=== PATIENT | male | born 1945 | race Caucasian/White ===

== ENCOUNTER 2016-10-18 03:18 | Emergency (ER) | payer MEDICARE ==
[~2016-10-18] VITALS: Ht 167.6 cm; Wt 59.9 kg
[~2016-10-18 03:18] MED LIST: ASP81EC PO; ASPI81CH43; CLON0.2T PO; DOXY-216 PO; FLUT110A INH; LISI10TA6 PO; MET50T PO; SPIR25TA88 PO; TRAZ100T2; TRAZ50TA2 PO
[2016-10-18] MEDS ORDERED: methylPREDNISolone SOD SUCC 125 MG/2 ML VL IV ONE (05:00)
[2016-10-18] MEDS ORDERED: ALBUTEROL SULF 2.5 MG/0.5ML(0.5%) NEB SOLN NEB ONE (05:00)
[2016-10-18] MEDS ORDERED: IPRATROPIUM BROM 0.5 MG/2.5ML INH SOL NEB ONE (05:00)
[2016-10-18 05:43] LABS: Basophils # (auto) 0 uL; Basophils % (auto) 0.2 % (0.0-2.0); Eosinophils # (auto) 0.1 uL; Eosinophils % (auto) 1.3 % (0.0-7.0); Hematocrit 50.2 % (41.0-53.0); Hemoglobin 17.1 g/dL (13.5-17.5); Lymphocytes # (auto) 1.8 uL; Lymphocytes % (auto) 17.7 % (10.0-50.0); Mean Corpuscular Hemoglobin 30.7 pg (28.0-32.0); Mean Corpuscular Volume 90.3 fL (80.0-100.0); Mean Platelet Volume 10.8 fL (7.4-10.4); Monocytes # (auto) 0.8 uL; Monocytes % (auto) 7.9 % (0.0-12.0); Neutrophils # (auto) 7.4 uL; Neutrophils % (auto) 72.9 % (37.0-80.0); Platelet Count (auto) 164 10^3/uL (140-450); Red Cell Distribution Width 14.2 % (11.6-16.0); White Blood Cell 10.1 10^3/uL (4.4-10.8)
[2016-10-18] MEDS ORDERED: NIFEdipine 10 MG CAP PO ONE (06:00)
[2016-10-18] MEDS ORDERED: ENALAPRILAT 1.25 MG/ML-1ML VIAL IV ONE (06:00)
[2016-10-18 06:02] LABS: Albumin 3.7 g/dL (3.4-5.0); BUN/Creatinine Ratio 19.6; Calcium 8.5 mg/dL (8.5-10.1); Magnesium 2.2 mg/dL (1.6-2.6); Potassium 3.4 mmol/L (3.5-5.1)
[2016-10-18 06:08] LABS: Bilirubin, Total 1.4 mg/dL (0.2-1.0)
[2016-10-18 06:15] LABS: B-Type Natriuretic Peptide 1737.13 pg/mL (0-100); Temperature: 22.7 C (20.0-25.0)
[2016-10-18 08:35] VITALS: BP 134/69
== END 2016-10-18 08:44 | disposition left against medical advice (07) ==
LOC: EDBD 03:18 → ER 03:22
DX: J44.1 Chronic obstructive pulmonary disease with (acute) exacerbation (principal); I11.0 Hypertensive heart disease with heart failure; I50.9 Heart failure, unspecified; R06.00 Dyspnea, unspecified; F17.210 Nicotine dependence, cigarettes, uncomplicated; F12.10 Cannabis abuse, uncomplicated; F15.10 Other stimulant abuse, uncomplicated; F11.10 Opioid abuse, uncomplicated; Z86.73 Personal history of transient ischemic attack (TIA), and cerebral infarction without residual deficits; I25.10 Atherosclerotic heart disease of native coronary artery without angina pectoris; I25.2 Old myocardial infarction
CPT/HCPCS: 36415; 36600; 71010; 80053; 82805; 83605; 83735; 83880; 84484; 85025; 87040; 93005; 94640; 94761; 96374; 96375

== ENCOUNTER 2016-10-24 23:49 | Emergency (ER) | payer MEDICARE | END 2016-10-25 00:05 | disposition left against medical advice (07) | LOC: EDBD 23:49 → EDUNIT# 23:49 → ER 23:54 | DX: T65.91XA Toxic effect of unspecified substance, accidental (unintentional), initial encounter (principal); Y92.89 Other specified places as the place of occurrence of the external cause; Z53.21 Procedure and treatment not carried out due to patient leaving prior to being seen by health care provider ==

== ENCOUNTER 2017-01-06 00:37 | Inpatient (IN) | payer MEDICARE, OTHER ==
[~2017-01-06] VITALS: Ht 165.1 cm; Wt 62.5 kg
[~2017-01-06 00:37] MED LIST changes: -ASPI81CH43; -TRAZ100T2
[2017-01-06] MEDS ORDERED: ALBUTEROL SULF 2.5 MG/0.5ML(0.5%) NEB SOLN NEB ONE ×2 (01:00→01:15)
[2017-01-06] MEDS ORDERED: IPRATROPIUM BROM 0.5 MG/2.5ML INH SOL NEB ONE (01:00)
[2017-01-06] MEDS ORDERED: cloNIDine HCL 0.1 MG TAB PO ONE (01:15)
[2017-01-06 01:16] LABS: Basophils # (auto) 0 uL; Basophils % (auto) 0.5 % (0.0-2.0); CONDITION Y; Eosinophils # (auto) 0.4 uL; Eosinophils % (auto) 4.5 % (0.0-7.0); Hematocrit 48.2 % (41.0-53.0); Lymphocytes # (auto) 2.4 uL; Mean Corpuscular Hemoglobin 30.5 pg (28.0-32.0); Mean Corpuscular Hgb Conc. 33.1 g/dL (32.0-36.0); Mean Corpuscular Volume 92.2 fL (80.0-100.0); Mean Platelet Volume 11.2 fL (7.4-10.4); Monocytes % (auto) 12.4 % (0.0-12.0); Neutrophils # (auto) 4.4 uL; Neutrophils % (auto) 53.6 % (37.0-80.0); Platelet Count (auto) 154 10^3/uL (140-450); Red Cell Distribution Width 14.3 % (11.6-16.0); White Blood Cell 8.3 10^3/uL (4.4-10.8)
[2017-01-06 01:38] LABS: Albumin 3.6 g/dL (3.4-5.0); BUN/Creatinine Ratio 17.1; Calcium 8.8 mg/dL (8.5-10.1); Magnesium 2.3 mg/dL (1.6-2.6); Potassium 3.3 mmol/L (3.5-5.1)
[2017-01-06 01:41] LABS: INR 1.03 (0.9-1.15); Partial Thromboplastin Time 28.1 sec (22.64-33.71); Prothrombin Time 11.2 sec (9.37-12.3)
[2017-01-06 01:43] LABS: Total Protein 7.1 g/dL (6.4-8.2)
[2017-01-06 01:49] LABS: Temperature: 23.1 C (20.0-25.0)
[2017-01-06 02:50] LABS: Urine RBC None Seen /hpf (0 - 3)
[2017-01-06 02:59] LABS: Urine Bilirubin Negative (Negative); Urine Blood Negative /uL (Negative); Urine Color Yellow (Yellow); Urine Glucose Normal (Normal); Urine Ketone Negative (Negative); Urine Nitrite Negative (Negative); Urine Urobilinogen Normal (Negative)
[2017-01-06] MEDS ORDERED: METOPROLOL TARTRATE 50 MG TAB PO ONE (03:30)
[2017-01-06] MEDS ORDERED: FUROSEMIDE 20 MG/2 ML VIAL IV ONE (04:15)
[2017-01-06] MEDS ORDERED: POTASSIUM CHL 20 Meq TABLET PO ONE (04:30)
[2017-01-06] MEDS ORDERED: TEMAZEPAM 15 MG CAP PO PRN (06:00)
[2017-01-06] MEDS ORDERED: NITROGLYCERIN 0.4 MG SL TAB SL PRN (06:00)
[2017-01-06] MEDS ORDERED: ONDANSETRON HCL 4 MG/2 ML VIAL IV PRN (06:00)
[2017-01-06] MEDS ORDERED: MORPHINE SULF INJ 2 MG/ML SYRINGE 1ML IV PRN (06:00)
[2017-01-06] MEDS: SPIRONOLACTONE 25 MG TAB PO SCH ×2 (06:09→17:58)
[2017-01-06 06:28] VITALS: BP 155/109
[2017-01-06] MEDS: LORazepam 0.5 MG TAB PO PRN ×2 (06:57→15:55)
[2017-01-06] MEDS: cloNIDine HCL 0.1 MG TAB PO SCH ×2 (10:06→22:00)
[2017-01-06] MEDS: ASPirin 81 mg TAB PO SCH (10:06)
[2017-01-06] MEDS: METOPROLOL TARTRATE 50 MG TAB PO SCH ×2 (10:06→22:00)
[2017-01-06] MEDS: ENOXAPARIN SOD 40 MG/0.4 ML SYRINGE SC SCH (10:06)
[2017-01-06] MEDS: LISINOPRIL 10 MG TAB PO SCH ×2 (10:07→22:00)
[2017-01-06 11:13] VITALS: BP 144/112
[2017-01-06] MEDS ORDERED: POTASSIUM CHL 10% (20 MEQ/15ML) 15ml ORAL SOLN PO ONE (13:30)
[2017-01-06] MEDS ORDERED: SODIUM CHLORIDE 0.9 % NEB SOLN 3ML NEB ONE (16:23)
[2017-01-06 21:50] LABS: BUN/Creatinine Ratio 19.3; Calcium 8.6 mg/dL (8.5-10.1); Potassium 4.6 mmol/L (3.5-5.1)
[2017-01-06 22:00] VITALS: BP 106/71
[2017-01-07] MEDS: HYDROcodone-ACET 5/325MG TAB PO PRN ×2 (04:36→22:33)
[2017-01-07 05:35] LABS: Basophils # (auto) 0.1 uL; Basophils % (auto) 0.7 % (0.0-2.0); CONDITION Y; Eosinophils # (auto) 0.3 uL; Eosinophils % (auto) 3.7 % (0.0-7.0); Hematocrit 45.3 % (41.0-53.0); Hemoglobin 15.1 g/dL (13.5-17.5); Lymphocytes # (auto) 2.7 uL; Mean Corpuscular Hemoglobin 30.8 pg (28.0-32.0); Mean Corpuscular Hgb Conc. 33.3 g/dL (32.0-36.0); Mean Corpuscular Volume 92.3 fL (80.0-100.0); Mean Platelet Volume 11.7 fL (7.4-10.4); Monocytes # (auto) 0.9 uL; Monocytes % (auto) 10.3 % (0.0-12.0); Neutrophils # (auto) 4.7 uL; Neutrophils % (auto) 54.3 % (37.0-80.0); Platelet Count (auto) 128 10^3/uL (140-450); Red Cell Distribution Width 14.2 % (11.6-16.0); SUSPECT SEE PRINTOUT; White Blood Cell 8.7 10^3/uL (4.4-10.8)
[2017-01-07 06:01] LABS: BUN/Creatinine Ratio 20.6; Bilirubin, Total 1.6 mg/dL (0.2-1.0); Calcium 8.4 mg/dL (8.5-10.1); Potassium 4.7 mmol/L (3.5-5.1); Total Protein 6.2 g/dL (6.4-8.2)
[2017-01-07] MEDS: SPIRONOLACTONE 25 MG TAB PO SCH ×2 (06:12→17:29)
[2017-01-07 09:00] VITALS: BP 119/81
[2017-01-07] MEDS: ASPirin 81 mg TAB PO SCH (09:48)
[2017-01-07] MEDS: cloNIDine HCL 0.1 MG TAB PO SCH ×2 (09:49→22:00)
[2017-01-07] MEDS: LISINOPRIL 10 MG TAB PO SCH ×2 (09:49→22:00)
[2017-01-07] MEDS: METOPROLOL TARTRATE 50 MG TAB PO SCH ×2 (09:50→22:30)
[2017-01-07] MEDS: ENOXAPARIN SOD 40 MG/0.4 ML SYRINGE SC SCH (09:50)
[2017-01-07 17:00] VITALS: BP 111/71
[2017-01-07 21:32] VITALS: BP 123/59
[2017-01-08] MEDS: LORazepam 0.5 MG TAB PO PRN (00:22)
[2017-01-08] MEDS: ALBUTEROL SULF 2.5 MG/0.5ML(0.5%) NEB SOLN NEB PRN ×2 (01:04→04:08)
[2017-01-08 04:47] VITALS: BP 139/96
[2017-01-08] MEDS: SPIRONOLACTONE 25 MG TAB PO SCH (06:35)
[2017-01-08] MEDS: HYDROcodone-ACET 5/325MG TAB PO PRN (06:39)
[2017-01-08 06:45] LABS: Calcium 8.6 mg/dL (8.5-10.1); Potassium 4.6 mmol/L (3.5-5.1)
[2017-01-08 08:23] VITALS: BP 146/100
[2017-01-08] MEDS ORDERED: FUROSEMIDE 40 MG/4 ML VIAL IV ONE (09:30)
[2017-01-08] MEDS ORDERED: POTASSIUM CHL 10 Meq TABLET PO ONE (09:30)
[2017-01-08] MEDS: cloNIDine HCL 0.1 MG TAB PO SCH (09:59)
[2017-01-08] MEDS: LISINOPRIL 10 MG TAB PO SCH (09:59)
[2017-01-08] MEDS: ASPirin 81 mg TAB PO SCH (10:00)
[2017-01-08] MEDS: METOPROLOL TARTRATE 50 MG TAB PO SCH (10:00)
[2017-01-08] MEDS: ENOXAPARIN SOD 40 MG/0.4 ML SYRINGE SC SCH (10:00)
[2017-01-08 10:26] LABS: Allen Test Yes; Base Excess 0.8 mmol/L (-2.0-2.0); Blood COHb 0.3 % (0.5-1.5); Blood MetHb 0.3 % (0.0-1.5); HCO3 25.9 mmol/L (22-26.0); HHb 9.9 % (0.0-5.0); MODE ROOM AIR; O2Hb 89.5 % (94.0-97.0); PCO2 42.8 mmHg (35.0-45.0); PCO2(T) 42.8 mmHg (35.0-45.0); PO2 61.3 mmHg (80.0-100.0); PO2(T) 61.3 mmHg (80.0-100.0); Room 0278T; Sample Type Arterial; pH 7.399 (7.350-7.450)
[2017-01-08 11:03] VITALS: BP 146/100
[2017-01-08 12:25] VITALS: BP 143/87
== END 2017-01-08 13:35 | disposition home health service (06) | DRG 189 ==
LOC: ER 00:37 → TELE 00:38 → TELE-E-ADS 10:20 → TELE-WESTW 18:37
PROVIDERS: ADMIT Nurse Practitioner; ATTEND Internal Medicine
DX: J96.00 Acute respiratory failure, unspecified whether with hypoxia or hypercapnia (principal); I50.43 Acute on chronic combined systolic (congestive) and diastolic (congestive) heart failure; N17.9 Acute kidney failure, unspecified; I13.0 Hypertensive heart and chronic kidney disease with heart failure and stage 1 through stage 4 chronic kidney disease, or unspecified chronic kidney disease; J44.1 Chronic obstructive pulmonary disease with (acute) exacerbation; I42.9 Cardiomyopathy, unspecified; N18.3 Chronic kidney disease, stage 3 (moderate); I25.10 Atherosclerotic heart disease of native coronary artery without angina pectoris; E78.5 Hyperlipidemia, unspecified; F32.9 Major depressive disorder, single episode, unspecified; F12.10 Cannabis abuse, uncomplicated; F41.9 Anxiety disorder, unspecified; F15.10 Other stimulant abuse, uncomplicated; F17.210 Nicotine dependence, cigarettes, uncomplicated; Z79.82 Long term (current) use of aspirin; I25.2 Old myocardial infarction; Z86.73 Personal history of transient ischemic attack (TIA), and cerebral infarction without residual deficits; Z79.899 Other long term (current) drug therapy; Z91.14 Patient's other noncompliance with medication regimen; Z81.1 Family history of alcohol abuse and dependence; Z82.49 Family history of ischemic heart disease and other diseases of the circulatory system; Z81.8 Family history of other mental and behavioral disorders; Z82.5 Family history of asthma and other chronic lower respiratory diseases; Z71.51 Drug abuse counseling and surveillance of drug abuser
CPT/HCPCS: 36415; 36600; 70450; 71010; 71020; 80048; 80053; 80307; 81001; 82805; 83735; 83880; 84484; 85025; 85379; 85610; 85730; 93005; 93306; 94640; 96372; 96374; J2405

== ENCOUNTER 2017-01-21 12:14 | Inpatient (IN) | payer MEDICARE, OTHER ==
[~2017-01-21] VITALS: Ht 167.6 cm; Wt 62.6 kg
[~2017-01-21 12:14] MED LIST changes: -DOXY-216 PO
[2017-01-21] MEDS ORDERED: SODIUM CHLORIDE 0.9% 1,000 ML IV ONE (13:03)
[2017-01-21 13:54] LABS: Basophils # (auto) 0 uL; Basophils % (auto) 0.6 % (0.0-2.0); Eosinophils # (auto) 0.2 uL; Eosinophils % (auto) 2.7 % (0.0-7.0); Hematocrit 46.1 % (41.0-53.0); Hemoglobin 15.8 g/dL (13.5-17.5); Lymphocytes # (auto) 1.5 uL; Lymphocytes % (auto) 21.5 % (10.0-50.0); Mean Corpuscular Hemoglobin 31.3 pg (28.0-32.0); Mean Corpuscular Hgb Conc. 34.3 g/dL (32.0-36.0); Mean Platelet Volume 10.1 fL (6.9-10.8); Monocytes # (auto) 0.7 uL; Monocytes % (auto) 10.1 % (0.0-12.0); Neutrophils # (auto) 4.7 uL; Neutrophils % (auto) 65.1 % (37.0-80.0); Nucleated Red Blood Cells % 0.1 %; Platelet Count (auto) 210 10^3/uL (140-450); Red Cell Distribution Width 13.9 % (11.8-14.3); White Blood Cell 7.2 10^3/uL (4.4-10.8)
[2017-01-21 14:24] LABS: Urine Bilirubin Negative (Negative); Urine Blood Negative /uL (Negative); Urine Color Yellow (Yellow); Urine Glucose Normal (Normal); Urine Hyaline Cast MANY /lpf (0 - 2); Urine Ketone Negative (Negative); Urine Mucus FEW (None Seen); Urine Nitrite Negative (Negative); Urine RBC 1 /hpf (0 - 3); Urine Squamous Epithelial Cell FEW /hpf (<5); Urine Urobilinogen Normal (Negative); Urine pH 6.5 (5.0-8.0)
[2017-01-21 14:40] LABS: B-Type Natriuretic Peptide 3155.32 pg/mL (0-100)
[2017-01-21 14:43] LABS: Albumin 3.6 g/dL (3.4-5.0); BUN/Creatinine Ratio 11.9; Bilirubin, Total 0.7 mg/dL (0.2-1.0); Calcium 9.7 mg/dL (8.5-10.1); Magnesium 2.4 mg/dL (1.6-2.6); Potassium 3.4 mmol/L (3.5-5.1); Total Protein 7.9 g/dL (6.4-8.2)
[2017-01-21 14:47] LABS: Temperature: 22.7 C (20.0-25.0)
[2017-01-21] MEDS ORDERED: LORazepam 0.5 MG TAB PO PRN (15:15)
[2017-01-21] MEDS ORDERED: LACTULOSE 20Gm/30ML SOLN PO PRN (15:15)
[2017-01-21] MEDS ORDERED: ACETAMINOPHEN 500 MG TAB PO PRN (15:15)
[2017-01-21] MEDS ORDERED: cloNIDine HCL 0.1 MG TAB PO PRN (15:15)
[2017-01-21] MEDS ORDERED: MORPHINE SULF INJ 2 MG/ML SYRINGE 1ML IV PRN (15:15)
[2017-01-21] MEDS ORDERED: NITROGLYCERIN 0.4 MG SL TAB SL PRN (15:15)
[2017-01-21] MEDS: SODIUM CHLORIDE 0.9% 1,000 ML IV SCH (15:29)
[2017-01-21] MEDS ORDERED: ENOXAPARIN SOD 40 MG/0.4 ML SYRINGE SC ONE (15:30)
[2017-01-21] MEDS ORDERED: ASPirin-EC 81 mg tab PO ONE (15:30)
[2017-01-21] MEDS ORDERED: PANTOPRAZOLE 40 MG TAB PO ONE (15:30)
[2017-01-21 15:37] LABS: Amylase 46 U/L (25-115)
[2017-01-21] MEDS ORDERED: methylPREDNISolone SOD SUCC 40 MG/ML VL IV SCH (18:00)
[2017-01-21 18:39] VITALS: BP 125/83
[2017-01-21] MEDS: IPRATROPIUM BROM 0.5 MG/2.5ML INH SOL NEB SCH (19:14)
[2017-01-21] MEDS: ALBUTEROL SULF 2.5 MG/0.5ML(0.5%) NEB SOLN NEB SCH (19:14)
[2017-01-21 20:00] VITALS: BP 135/79
[2017-01-21 20:58] VITALS: BP 125/83
[2017-01-21] MEDS: TEMAZEPAM 15 MG CAP PO PRN (21:49)
[2017-01-21] MEDS: traZODone HCL 50 MG TAB PO SCH (21:49)
[2017-01-21 22:00] VITALS: BP 135/79
[2017-01-21] MEDS: FLUTICASONE PROPIONATE INH SCH (22:00)
[2017-01-21] MEDS ORDERED: FLUTICASONE PROPIONATE INH SCH (22:00)
[2017-01-22] VITALS (7 sets, daily range): BP systolic 131–157; BP diastolic 79–95
[2017-01-22] MEDS: IPRATROPIUM BROM 0.5 MG/2.5ML INH SOL NEB SCH ×4 (00:20→19:19)
[2017-01-22] MEDS: ALBUTEROL SULF 2.5 MG/0.5ML(0.5%) NEB SOLN NEB SCH ×4 (00:20→19:19)
[2017-01-22] MEDS: SODIUM CHLORIDE 0.9% 1,000 ML IV SCH (00:51)
[2017-01-22] MEDS ORDERED: ALBU18 IN (05:10)
[2017-01-22] MEDS ORDERED: MULTTAB61 PO (05:11)
[2017-01-22] MEDS ORDERED: FURO20TA3 PO (05:11)
[2017-01-22] MEDS ORDERED: DOCU100T15 PO (05:12)
[2017-01-22 06:22] LABS: Basophils # (auto) 0.1 uL; Basophils % (auto) 0.9 % (0.0-2.0); Eosinophils # (auto) 0.3 uL; Eosinophils % (auto) 5.5 % (0.0-7.0); Hemoglobin 14.6 g/dL (13.5-17.5); Lymphocytes # (auto) 1.7 uL; Lymphocytes % (auto) 29.7 % (10.0-50.0); Mean Corpuscular Hemoglobin 31.5 pg (28.0-32.0); Mean Corpuscular Hgb Conc. 34.8 g/dL (32.0-36.0); Mean Corpuscular Volume 90.6 fL (80.0-100.0); Mean Platelet Volume 9.4 fL (6.9-10.8); Monocytes # (auto) 0.7 uL; Monocytes % (auto) 12.1 % (0.0-12.0); Neutrophils % (auto) 51.8 % (37.0-80.0); Nucleated Red Blood Cells % 0.1 %; Platelet Count (auto) 190 10^3/uL (140-450); Red Cell Distribution Width 13.8 % (11.8-14.3); White Blood Cell 5.8 10^3/uL (4.4-10.8)
[2017-01-22 06:33] LABS: Albumin 2.9 g/dL (3.4-5.0); BUN/Creatinine Ratio 16.3; Calcium 8.3 mg/dL (8.5-10.1); Potassium 3.3 mmol/L (3.5-5.1)
[2017-01-22 06:36] LABS: Bilirubin, Total 0.6 mg/dL (0.2-1.0)
[2017-01-22 07:47] LABS: Temperature: 21.5 C (20.0-25.0)
[2017-01-22] MEDS ORDERED: GASTROGRAFIN 120 ML SOL ONE (07:50)
[2017-01-22] MEDS: ASPirin-EC 81 mg tab PO SCH (09:55)
[2017-01-22] MEDS: ENOXAPARIN SOD 40 MG/0.4 ML SYRINGE SC SCH (09:55)
[2017-01-22] MEDS: PANTOPRAZOLE 40 MG TAB PO SCH (09:55)
[2017-01-22] MEDS: FLUTICASONE PROPIONATE INH SCH ×2 (09:55→22:00)
[2017-01-22] MEDS: HYDROcodone-ACET 5/325MG TAB PO PRN (11:16)
[2017-01-22] MEDS ORDERED: POTASSIUM CHL 20 Meq TABLET PO ONE (15:15)
[2017-01-22] MEDS ORDERED: FUROSEMIDE 40 MG TAB PO ONE (15:30)
[2017-01-22] MEDS: MORPHINE SULF INJ 2 MG/ML SYRINGE 1ML IV PRN (16:00)
[2017-01-22] MEDS: SPIRONOLACTONE 25 MG TAB PO SCH (17:58)
[2017-01-22] MEDS: TEMAZEPAM 15 MG CAP PO PRN (21:10)
[2017-01-22] MEDS: traZODone HCL 50 MG TAB PO SCH (21:11)
[2017-01-22] MEDS: LISINOPRIL 20 MG TAB PO SCH (21:12)
[2017-01-22] MEDS: METOPROLOL TARTRATE 50 MG TAB PO SCH (21:14)
[2017-01-23] MEDS: IPRATROPIUM BROM 0.5 MG/2.5ML INH SOL NEB SCH ×5 (00:17→19:34)
[2017-01-23] MEDS: ALBUTEROL SULF 2.5 MG/0.5ML(0.5%) NEB SOLN NEB SCH ×5 (00:17→19:34)
[2017-01-23] MEDS: ALBUTEROL SULF 2.5 MG/0.5ML(0.5%) NEB SOLN NEB PRN ×3 (02:32→22:34)
[2017-01-23 05:00] VITALS: BP 141/94
[2017-01-23] MEDS: SPIRONOLACTONE 25 MG TAB PO SCH ×2 (06:02→17:43)
[2017-01-23 06:43] LABS: INR 0.98 (0.9-1.15); Partial Thromboplastin Time 28.4 sec (22.64-33.71); Prothrombin Time 10.7 sec (9.37-12.3)
[2017-01-23 06:49] LABS: BUN/Creatinine Ratio 16.5; Calcium 8.5 mg/dL (8.5-10.1)
[2017-01-23 06:55] LABS: Potassium 4.5 mmol/L (3.5-5.1)
[2017-01-23 08:00] VITALS: BP 141/94
[2017-01-23] MEDS: HYDROcodone-ACET 5/325MG TAB PO PRN ×2 (08:39→21:14)
[2017-01-23 09:18] VITALS: BP 145/91
[2017-01-23] MEDS: ASPirin-EC 81 mg tab PO SCH (09:50)
[2017-01-23] MEDS: ENOXAPARIN SOD 40 MG/0.4 ML SYRINGE SC SCH (09:50)
[2017-01-23] MEDS: PANTOPRAZOLE 40 MG TAB PO SCH (09:51)
[2017-01-23] MEDS: POTASSIUM CHL 20 Meq TABLET PO SCH (09:51)
[2017-01-23] MEDS: METOPROLOL TARTRATE 50 MG TAB PO SCH ×2 (09:51→22:00)
[2017-01-23] MEDS: LISINOPRIL 20 MG TAB PO SCH ×2 (09:52→21:17)
[2017-01-23] MEDS ORDERED: FUROSEMIDE 40 MG TAB PO SCH (10:00)
[2017-01-23] MEDS: BUDESONIDE (INHALATION) 0.5 MG/2 ML NEB NEB SCH ×2 (10:16→19:33)
[2017-01-23] MEDS: MORPHINE SULF INJ 2 MG/ML SYRINGE 1ML IV PRN (11:14)
[2017-01-23 13:03] VITALS: BP 152/89
[2017-01-23] MEDS: PROMETHAZINE HCL 25 MG/ML 1ML IV PRN (13:10)
[2017-01-23 17:12] VITALS: BP 153/103
[2017-01-23] MEDS: TEMAZEPAM 15 MG CAP PO PRN (21:16)
[2017-01-23] MEDS: traZODone HCL 50 MG TAB PO SCH (21:17)
[2017-01-23 23:38] VITALS: BP 153/108
[2017-01-24] VITALS (7 sets, daily range): BP systolic 123–150; BP diastolic 77–93
[2017-01-24] MEDS: IPRATROPIUM BROM 0.5 MG/2.5ML INH SOL NEB SCH ×4 (02:01→17:59)
[2017-01-24] MEDS: ALBUTEROL SULF 2.5 MG/0.5ML(0.5%) NEB SOLN NEB SCH ×4 (02:01→17:59)
[2017-01-24] MEDS: SPIRONOLACTONE 25 MG TAB PO SCH ×2 (05:23→18:17)
[2017-01-24] MEDS: BUDESONIDE (INHALATION) 0.5 MG/2 ML NEB NEB SCH ×2 (07:26→17:59)
[2017-01-24] MEDS: ASPirin-EC 81 mg tab PO SCH (09:50)
[2017-01-24] MEDS: METOPROLOL TARTRATE 50 MG TAB PO SCH ×2 (09:51→22:12)
[2017-01-24] MEDS: PANTOPRAZOLE 40 MG TAB PO SCH (09:52)
[2017-01-24] MEDS: LISINOPRIL 20 MG TAB PO SCH ×2 (09:52→22:18)
[2017-01-24] MEDS: POTASSIUM CHL 20 Meq TABLET PO SCH (09:52)
[2017-01-24] MEDS: ENOXAPARIN SOD 40 MG/0.4 ML SYRINGE SC SCH (09:53)
[2017-01-24] MEDS: PROMETHAZINE HCL 25 MG/ML 1ML IV PRN (12:39)
[2017-01-24] MEDS: AMOXICILLIN TRIHYDRATE 250 MG CAP PO SCH ×2 (13:40→22:11)
[2017-01-24] MEDS: FUROSEMIDE 40 MG/4 ML VIAL IV SCH (17:36)
[2017-01-24] MEDS: traZODone HCL 50 MG TAB PO SCH (22:13)
[2017-01-25] MEDS: IPRATROPIUM BROM 0.5 MG/2.5ML INH SOL NEB SCH ×4 (00:53→13:20)
[2017-01-25] MEDS: ALBUTEROL SULF 2.5 MG/0.5ML(0.5%) NEB SOLN NEB SCH ×4 (00:53→13:20)
[2017-01-25] MEDS: HYDROcodone-ACET 5/325MG TAB PO PRN (02:08)
[2017-01-25] MEDS: TEMAZEPAM 15 MG CAP PO PRN (02:09)
[2017-01-25 04:59] VITALS: BP 124/78
[2017-01-25] MEDS: AMOXICILLIN TRIHYDRATE 250 MG CAP PO SCH (05:24)
[2017-01-25] MEDS: FUROSEMIDE 40 MG/4 ML VIAL IV SCH (05:25)
[2017-01-25] MEDS: SPIRONOLACTONE 25 MG TAB PO SCH (05:25)
[2017-01-25] MEDS: BUDESONIDE (INHALATION) 0.5 MG/2 ML NEB NEB SCH (06:44)
[2017-01-25 09:00] VITALS: BP 103/67
[2017-01-25] MEDS: ALBUTEROL SULF 2.5 MG/0.5ML(0.5%) NEB SOLN NEB PRN (09:34)
[2017-01-25] MEDS: POTASSIUM CHL 20 Meq TABLET PO SCH (10:44)
[2017-01-25] MEDS: PANTOPRAZOLE 40 MG TAB PO SCH (10:44)
[2017-01-25] MEDS: ASPirin-EC 81 mg tab PO SCH (10:45)
[2017-01-25] MEDS: METOPROLOL TARTRATE 50 MG TAB PO SCH (10:45)
[2017-01-25] MEDS: LISINOPRIL 20 MG TAB PO SCH (10:46)
[2017-01-25] MEDS: ENOXAPARIN SOD 40 MG/0.4 ML SYRINGE SC SCH (10:46)
[2017-01-25 11:30] VITALS: BP 146/111
[2017-01-25 13:29] VITALS: BP 146/111
== END 2017-01-25 12:30 | disposition home health service (06) | DRG 393 ==
LOC: ER 12:14 → TELE 12:15 → TELE-WESTW 17:54
PROVIDERS: ADMIT Internal Medicine; ATTEND Internal Medicine
DX: K40.90 Unilateral inguinal hernia, without obstruction or gangrene, not specified as recurrent (principal); I50.21 Acute systolic (congestive) heart failure; I42.9 Cardiomyopathy, unspecified; J44.9 Chronic obstructive pulmonary disease, unspecified; I13.0 Hypertensive heart and chronic kidney disease with heart failure and stage 1 through stage 4 chronic kidney disease, or unspecified chronic kidney disease; E86.0 Dehydration; F32.9 Major depressive disorder, single episode, unspecified; F41.9 Anxiety disorder, unspecified; I25.10 Atherosclerotic heart disease of native coronary artery without angina pectoris; N18.9 Chronic kidney disease, unspecified; F15.10 Other stimulant abuse, uncomplicated; F12.10 Cannabis abuse, uncomplicated; F11.10 Opioid abuse, uncomplicated; E78.5 Hyperlipidemia, unspecified; I25.2 Old myocardial infarction; Z86.73 Personal history of transient ischemic attack (TIA), and cerebral infarction without residual deficits; Z82.49 Family history of ischemic heart disease and other diseases of the circulatory system; Z81.8 Family history of other mental and behavioral disorders; Z82.5 Family history of asthma and other chronic lower respiratory diseases; Z91.19 Patient's noncompliance with other medical treatment and regimen; Z59.0 Homelessness; Z87.891 Personal history of nicotine dependence; Z91.14 Patient's other noncompliance with medication regimen
CPT/HCPCS: 36415; 71010; 74176; 74250; 80048; 80053; 80307; 81001; 82150; 82550; 82962; 83605; 83690; 83735; 83880; 84443; 84484; 85025; 85610; 85730; 87040; 87081; 87086; 87088; 87186; 93005; 94640; 94761; 96360; 96361

== ENCOUNTER 2017-02-13 11:17 | Inpatient (IN) | payer MEDICARE ==
[~2017-02-13] VITALS: Ht 165.1 cm; Wt 63.3 kg
[~2017-02-13 11:17] MED LIST changes: +ALBU18 IN; +DOCU100T15 PO; +FURO20TA3 PO; +MULTTAB61 PO
[2017-02-13 11:56] LABS: Basophils # (auto) 0.1 uL; Basophils % (auto) 0.7 % (0.0-2.0); Eosinophils # (auto) 0.3 uL; Hematocrit 43.2 % (41.0-53.0); Hemoglobin 14.7 g/dL (13.5-17.5); Lymphocytes # (auto) 1.5 uL; Lymphocytes % (auto) 21.7 % (10.0-50.0); Mean Corpuscular Hemoglobin 31.4 pg (28.0-32.0); Mean Corpuscular Hgb Conc. 34.1 g/dL (32.0-36.0); Mean Platelet Volume 9.5 fL (6.9-10.8); Monocytes # (auto) 0.7 uL; Monocytes % (auto) 10.3 % (0.0-12.0); Neutrophils # (auto) 4.3 uL; Neutrophils % (auto) 63.3 % (37.0-80.0); Nucleated Red Blood Cells % 0.1 %; Platelet Count (auto) 150 10^3/uL (140-450); Red Cell Distribution Width 13.7 % (11.8-14.3); White Blood Cell 6.9 10^3/uL (4.4-10.8)
[2017-02-13 12:19] LABS: Albumin 3.5 g/dL (3.4-5.0); Alkaline Phosphatase 71 U/L (45-117); Anion Gap 8 (5-15); Aspartate Aminotransferase 29 U/L (15-37); BUN/Creatinine Ratio 22.5; Bilirubin, Total 0.5 mg/dL (0.2-1.0); Blood Urea Nitrogen 25 mg/dL (7-18); Calcium 8.8 mg/dL (8.5-10.1); Carbon Dioxide 26 mmol/L (21-32); Chloride 103 mmol/L (98-107); GFR African American 84 mL/min; GFR Non-African American 70 mL/min; Glucose 111 mg/dL (74-106); Potassium 3.8 mmol/L (3.5-5.1); Sodium 137 mmol/L (136-145); Total Protein 7.1 g/dL (6.4-8.2)
[2017-02-13] MEDS ORDERED: MORPHINE SULF INJ 2 MG/ML SYRINGE 1ML IV PRN (19:15)
[2017-02-13] MEDS ORDERED: NITROGLYCERIN 0.4 MG SL TAB SL PRN (19:15)
[2017-02-13 22:00] VITALS: BP 138/87
[2017-02-13] MEDS ORDERED: traZODone HCL 50 MG TAB PO SCH (22:00)
[2017-02-13] MEDS: cloNIDine HCL 0.1 MG TAB PO SCH (23:19)
[2017-02-13] MEDS: METOPROLOL TARTRATE 50 MG TAB PO SCH (23:20)
[2017-02-14 01:00] VITALS: BP 138/87
[2017-02-14 05:00] VITALS: BP 123/80
[2017-02-14] MEDS ORDERED: SPIRONOLACTONE 25 MG TAB PO SCH (06:00)
[2017-02-14] MEDS ORDERED: PNEUMOCOCCAL VACC POLYS 25 MCG/0.5 ML VIAL IM ONE (06:30)
[2017-02-14 09:18] VITALS: BP 107/76
[2017-02-14] MEDS: cloNIDine HCL 0.1 MG TAB PO SCH (10:00)
[2017-02-14] MEDS: METOPROLOL TARTRATE 50 MG TAB PO SCH (10:00)
[2017-02-14] MEDS ORDERED: ASPirin-EC 81 mg tab PO SCH (10:00)
[2017-02-14] MEDS ORDERED: FUROSEMIDE 20 MG TAB PO SCH (10:00)
[2017-02-14 13:00] VITALS: BP 129/79
== END 2017-02-14 15:38 | disposition left against medical advice (07) | DRG 292 ==
LOC: ER 11:17 → WEST WING 11:18
PROVIDERS: ADMIT Nurse Practitioner Acute Care; ATTEND Nurse Practitioner Acute Care
DX: I11.0 Hypertensive heart disease with heart failure (principal); J44.1 Chronic obstructive pulmonary disease with (acute) exacerbation; J45.901 Unspecified asthma with (acute) exacerbation; R55 Syncope and collapse; I50.9 Heart failure, unspecified; K40.90 Unilateral inguinal hernia, without obstruction or gangrene, not specified as recurrent; K59.00 Constipation, unspecified; E78.5 Hyperlipidemia, unspecified; F41.9 Anxiety disorder, unspecified; F15.90 Other stimulant use, unspecified, uncomplicated; Z53.21 Procedure and treatment not carried out due to patient leaving prior to being seen by health care provider; F17.210 Nicotine dependence, cigarettes, uncomplicated; F32.9 Major depressive disorder, single episode, unspecified; I25.10 Atherosclerotic heart disease of native coronary artery without angina pectoris; I25.2 Old myocardial infarction; Z59.0 Homelessness; Z79.51 Long term (current) use of inhaled steroids; Z79.899 Other long term (current) drug therapy; Z81.8 Family history of other mental and behavioral disorders; Z82.49 Family history of ischemic heart disease and other diseases of the circulatory system; Z86.73 Personal history of transient ischemic attack (TIA), and cerebral infarction without residual deficits; Z23 Encounter for immunization
CPT/HCPCS: 36415; 80053; 82962; 84484; 85025; 93005; 96372; 96374

== ENCOUNTER 2017-05-03 17:07 | Emergency (ER) | payer MEDICARE ==
[~2017-05-03] VITALS: Ht 167.6 cm; Wt 64.4 kg
[2017-05-04 07:55] VITALS: BP 188/101
[2017-05-04] MEDS ORDERED: SODIUM CHLORIDE 0.9% 1,000 ML IV ONE (08:21)
[2017-05-04] MEDS ORDERED: SODIUM CHLORIDE 0.9% 1,000 ML IVB ONE (08:21)
[2017-05-04] MEDS ORDERED: ONDANSETRON HCL 4 MG/2 ML VIAL IV ONE (08:30)
[2017-05-04] MEDS ORDERED: HYDROmorphone HCL 2 MG/ML VL IV ONE (08:30)
[2017-05-04 08:54] LABS: Basophils # (auto) 0.1 uL; Basophils % (auto) 0.4 % (0.0-2.0); Eosinophils # (auto) 0 uL; Eosinophils % (auto) 0.1 % (0.0-7.0); Hematocrit 45.3 % (41.0-53.0); Hemoglobin 15.5 g/dL (13.5-17.5); Lymphocytes # (auto) 1.1 uL; Lymphocytes % (auto) 7.1 % (10.0-50.0); Mean Corpuscular Hemoglobin 31.2 pg (28.0-32.0); Mean Corpuscular Hgb Conc. 34.3 g/dL (32.0-36.0); Mean Corpuscular Volume 90.9 fL (80.0-100.0); Monocytes # (auto) 0.5 uL; Monocytes % (auto) 3.2 % (0.0-12.0); Neutrophils # (auto) 14.4 uL; Neutrophils % (auto) 89.2 % (37.0-80.0); Nucleated Red Blood Cells % 0.1 %; Platelet Count (auto) 128 10^3/uL (140-450); Red Blood Cells 4.98 10^6/uL (4.5-5.90); Red Cell Distribution Width 14.1 % (11.8-14.3); White Blood Cell 16.2 10^3/uL (4.4-10.8)
[2017-05-04 09:08] LABS: INR 0.97 (0.9-1.15); Partial Thromboplastin Time 33.1 sec (22.64-33.71); Prothrombin Time 10.6 sec (9.37-12.3)
[2017-05-04 09:16] LABS: Alanine Aminotransferase 31 U/L (16-61); Alkaline Phosphatase 70 U/L (45-117); Anion Gap 9 (5-15); Aspartate Aminotransferase 24 U/L (15-37); BUN/Creatinine Ratio 24.3; Bilirubin, Total 2.2 mg/dL (0.2-1.0); Blood Urea Nitrogen 27 mg/dL (7-18); Calcium 8.8 mg/dL (8.5-10.1); Carbon Dioxide 26 mmol/L (21-32); Chloride 100 mmol/L (98-107); GFR African American 84 mL/min; GFR Non-African American 70 mL/min; Glucose 96 mg/dL (74-106); Potassium 3.7 mmol/L (3.5-5.1); Sodium 135 mmol/L (136-145); Total Protein 6.8 g/dL (6.4-8.2)
[2017-05-04] MEDS ORDERED: cloNIDine HCL 0.1 MG TAB ONE (10:11)
[2017-05-04] MEDS ORDERED: cloNIDine HCL 0.1 MG TAB PO ONE (10:45)
== END 2017-05-04 11:06 | disposition home or self-care (01) ==
LOC: EDBD 17:07 → ER 17:16
DX: K40.90 Unilateral inguinal hernia, without obstruction or gangrene, not specified as recurrent (principal); I50.9 Heart failure, unspecified; I11.0 Hypertensive heart disease with heart failure; J44.9 Chronic obstructive pulmonary disease, unspecified; I25.10 Atherosclerotic heart disease of native coronary artery without angina pectoris; E78.5 Hyperlipidemia, unspecified; I25.2 Old myocardial infarction; F17.210 Nicotine dependence, cigarettes, uncomplicated; Z59.0 Homelessness
CPT/HCPCS: 36415; 74176; 80053; 84484; 85025; 85610; 85730; 96361; 96374; 96375; 99285; J1170; J2405; J7030

== ENCOUNTER 2017-05-07 05:09 | Emergency (ER) | payer MEDICARE ==
[~2017-05-07] VITALS: Ht 172.7 cm; Wt 72.6 kg
[2017-05-07 05:20] VITALS: BP 174/128
[2017-05-07] MEDS ORDERED: IPRATROPIUM BROM 0.5 MG/2.5ML INH SOL HHN ONE (06:15)
[2017-05-07] MEDS ORDERED: ALBUTEROL SULF 2.5 MG/0.5ML(0.5%) NEB SOLN HHN ONE (06:15)
[2017-05-07] MEDS ORDERED: methylPREDNISolone SOD SUCC 125 MG/2 ML VL IV ONE (06:15)
== END 2017-05-07 06:48 | disposition left against medical advice (07) ==
LOC: EDBD 05:09 → ER 05:09
DX: J44.1 Chronic obstructive pulmonary disease with (acute) exacerbation (principal); I13.0 Hypertensive heart and chronic kidney disease with heart failure and stage 1 through stage 4 chronic kidney disease, or unspecified chronic kidney disease; I50.9 Heart failure, unspecified; N18.9 Chronic kidney disease, unspecified; F17.210 Nicotine dependence, cigarettes, uncomplicated; I25.10 Atherosclerotic heart disease of native coronary artery without angina pectoris; Z59.0 Homelessness; E78.5 Hyperlipidemia, unspecified; I25.2 Old myocardial infarction
CPT/HCPCS: 93005; 94761; 99284; J7030

== ENCOUNTER 2017-05-07 17:05 | Inpatient (IN) | payer MEDICARE ==
[~2017-05-07] VITALS: Ht 167.6 cm; Wt 66.9 kg
[2017-05-08 00:42] LABS: Hematocrit 41.2 % (41.0-53.0); Hemoglobin 14.1 g/dL (13.5-17.5); Mean Corpuscular Hgb Conc. 34.3 g/dL (32.0-36.0); Mean Corpuscular Volume 90.3 fL (80.0-100.0); Platelet Count (auto) 132 10^3/uL (140-450); Red Blood Cells 4.56 10^6/uL (4.5-5.90); Red Cell Distribution Width 13.3 % (11.8-14.3); White Blood Cell 7.3 10^3/uL (4.4-10.8)
[2017-05-08 00:50] LABS: Band Neutrophils % (manual) 0; Basophils % (manual) 0 (0.0-2.0); Blast Cells 0; Eosinophils % (manual) 0 (0-7); Metamyelocytes % 0; Myelocytes % 0; Promyelocytes % 0; Reactive Lymphocytes 0
[2017-05-08 00:55] LABS: Albumin 2.8 g/dL (3.4-5.0); BUN/Creatinine Ratio 13.4; Calcium 8.5 mg/dL (8.5-10.1); Potassium 3.7 mmol/L (3.5-5.1)
[2017-05-08 01:01] LABS: Lymphocytes % (manual) 11 (10.0-50.0); Monocytes % (manual) 12 (0-12)
[2017-05-08 01:06] LABS: Bilirubin, Total 0.8 mg/dL (0.2-1.0); Total Protein 6.9 g/dL (6.4-8.2)
[2017-05-08] MEDS ORDERED: ALBUTEROL SULF 2.5 MG/0.5ML(0.5%) NEB SOLN NEB ONE (06:00)
[2017-05-08] MEDS ORDERED: IPRATROPIUM BROM 0.5 MG/2.5ML INH SOL NEB ONE (06:00)
[2017-05-08] MEDS ORDERED: ALBUTEROL SULF 2.5 MG/0.5ML(0.5%) NEB SOLN ONE (06:10)
[2017-05-08] MEDS ORDERED: SODIUM CHLORIDE 0.9% 1,000 ML IV ONE (06:28)
[2017-05-08] MEDS ORDERED: FUROSEMIDE 20 MG/2 ML VIAL IV ONE (06:30)
[2017-05-08] MEDS ORDERED: SPIRONOLACTONE 25 MG TAB PO ONE (06:30)
[2017-05-08] MEDS ORDERED: METOPROLOL TARTRATE 1MG/1ML-5ML VIAL IV ONE ×2 (06:45→09:45)
[2017-05-08] MEDS ORDERED: MORPHINE SULFATE 4 MG/ML SYR/VIAL IV PRN ×3 (07:00→11:15)
[2017-05-08 09:51] LABS: Urine Bacteria FEW /hpf (None Seen); Urine Blood Negative /uL (Negative); Urine Mucus FEW (None Seen); Urine Specific Gravity 1.009 (1.001-1.035); Urine WBC 2 /hpf (0 - 3)
[2017-05-08] MEDS ORDERED: PROMETHAZINE HCL 25 MG/ML 1ML IV PRN (11:00)
[2017-05-08] MEDS ORDERED: CARVEDILOL 12.5 MG TAB PO ONE (11:00)
[2017-05-08] MEDS ORDERED: LORazepam 0.5 MG TAB PO PRN (11:00)
[2017-05-08] MEDS ORDERED: LACTULOSE 20Gm/30ML SOLN PO PRN (11:00)
[2017-05-08] MEDS ORDERED: TEMAZEPAM 15 MG CAP PO PRN (11:00)
[2017-05-08] MEDS ORDERED: PATIENTS OWN MEDICATION (Docusate Sodium 250 MG) PO PRN (11:00)
[2017-05-08] MEDS ORDERED: DOXYCYCLINE HYC 100MG/250ML 250 ML IV SCH (11:00)
[2017-05-08] MEDS ORDERED: NITROGLYCERIN 0.4 MG SL TAB SL PRN (11:00)
[2017-05-08] MEDS ORDERED: ACETAMINOPHEN 500 MG TAB PO PRN (11:00)
[2017-05-08] MEDS ORDERED: OSELTAMIVIR 75 MG CAP PO ONE (11:00)
[2017-05-08] MEDS ORDERED: ALBUTEROL SULF 2.5 MG/0.5ML(0.5%) NEB SOLN NEB PRN (11:00)
[2017-05-08] MEDS ORDERED: POTASSIUM CHL 20 Meq TABLET PO SCH (11:15)
[2017-05-08] MEDS ORDERED: LEVOFLOXACIN 500MG 100 ML IV ONE (11:15)
[2017-05-08] MEDS ORDERED: DOCUSATE ORAL LIQUID 100 MG/10 ML UD PO PRN (11:15)
[2017-05-08 11:23] LABS: Amylase 42 U/L (25-115); Lipase 119 U/L (73-393)
[2017-05-08] MEDS ORDERED: DILTIAZEM HCL 25 MG/5 ML VIAL IV ONE (11:45)
[2017-05-08] MEDS: LISINOPRIL 10 MG TAB PO SCH ×2 (12:10→22:00)
[2017-05-08] MEDS: IPRATROPIUM BROM 0.5 MG/2.5ML INH SOL NEB SCH ×2 (12:10→20:42)
[2017-05-08] MEDS: ALBUTEROL SULF 2.5 MG/0.5ML(0.5%) NEB SOLN NEB SCH ×2 (12:10→20:42)
[2017-05-08] MEDS: ENOXAPARIN SOD 40 MG/0.4 ML SYRINGE SC SCH (12:10)
[2017-05-08] MEDS: BUDESONIDE (INHALATION) 0.5 MG/2 ML NEB NEB SCH ×2 (12:10→20:42)
[2017-05-08] MEDS: cloNIDine HCL 0.1 MG TAB PO SCH ×2 (12:10→22:00)
[2017-05-08] MEDS: ASPirin 81 mg TAB PO SCH (12:10)
[2017-05-08] MEDS: PANTOPRAZOLE 40 MG TAB PO SCH (12:44)
[2017-05-08] MEDS: NITROGLYCERIN 0.2MG/HR TOPICAL PATCH TD SCH (12:45)
[2017-05-08] MEDS: methylPREDNISolone SOD SUCC 40 MG/ML VL IV SCH ×2 (12:55→18:14)
[2017-05-08 16:53] VITALS: BP 103/61
[2017-05-08] MEDS: HYDROcodone-ACET 5/325MG TAB PO PRN (17:32)
[2017-05-08] MEDS ORDERED: FUROSEMIDE 40 MG/4 ML VIAL IV SCH (18:00)
[2017-05-08] MEDS: SPIRONOLACTONE 25 MG TAB PO SCH (18:15)
[2017-05-08 20:49] VITALS: BP_SYST 116; BP_SYST 125; BP_DIAS 62; BP_DIAS 70
[2017-05-08 22:00] VITALS: BP 116/62
[2017-05-08] MEDS ORDERED: OSELTAMIVIR 75 MG CAP PO SCH (22:00)
[2017-05-08] MEDS ORDERED: PATIENTS OWN MEDICATION (Clonidine Hydrochloride (Clonidine Hcl) 1 TAB) PO SCH (22:00)
[2017-05-08] MEDS: CARVEDILOL 12.5 MG TAB PO SCH (22:00)
[2017-05-08] MEDS: traZODone HCL 50 MG TAB PO SCH (22:00)
[2017-05-08] MEDS ORDERED: FLUTICASONE PROPIONATE INH SCH (22:00)
[2017-05-09] MEDS: methylPREDNISolone SOD SUCC 40 MG/ML VL IV SCH ×4 (00:32→18:48)
[2017-05-09] MEDS: HYDROcodone-ACET 5/325MG TAB PO PRN ×3 (01:33→15:02)
[2017-05-09] MEDS: IPRATROPIUM BROM 0.5 MG/2.5ML INH SOL NEB SCH ×4 (01:39→20:22)
[2017-05-09] MEDS: ALBUTEROL SULF 2.5 MG/0.5ML(0.5%) NEB SOLN NEB SCH ×4 (01:39→20:22)
[2017-05-09 05:00] VITALS: BP 135/76
[2017-05-09] MEDS: SPIRONOLACTONE 25 MG TAB PO SCH ×2 (05:48→18:48)
[2017-05-09] MEDS: BUDESONIDE (INHALATION) 0.5 MG/2 ML NEB NEB SCH ×2 (07:19→20:22)
[2017-05-09 07:30] LABS: Basophils # (auto) 0 uL; Basophils % (auto) 0.2 % (0.0-2.0); Eosinophils # (auto) 0 uL; Hematocrit 38.4 % (41.0-53.0); Hemoglobin 13.1 g/dL (13.5-17.5); Lymphocytes # (auto) 0.7 uL; Lymphocytes % (auto) 11.9 % (10.0-50.0); Mean Corpuscular Hemoglobin 30.9 pg (28.0-32.0); Mean Corpuscular Hgb Conc. 34.1 g/dL (32.0-36.0); Mean Corpuscular Volume 90.7 fL (80.0-100.0); Monocytes # (auto) 0.4 uL; Monocytes % (auto) 6.3 % (0.0-12.0); Neutrophils # (auto) 4.7 uL; Neutrophils % (auto) 81.6 % (37.0-80.0); Platelet Count (auto) 151 10^3/uL (140-450); Red Blood Cells 4.23 10^6/uL (4.5-5.90); Red Cell Distribution Width 13.5 % (11.8-14.3); White Blood Cell 5.8 10^3/uL (4.4-10.8)
[2017-05-09 08:14] LABS: Albumin 2.5 g/dL (3.4-5.0); BUN/Creatinine Ratio 26.6; Bilirubin, Total 0.5 mg/dL (0.2-1.0); Calcium 8.7 mg/dL (8.5-10.1); Potassium 4.2 mmol/L (3.5-5.1); Total Protein 6.3 g/dL (6.4-8.2)
[2017-05-09 09:00] VITALS: BP 128/65
[2017-05-09] MEDS: MULTIPLE VITAMIN TAB PO SCH (10:10)
[2017-05-09] MEDS: ASPirin 81 mg TAB PO SCH (10:10)
[2017-05-09] MEDS: ENOXAPARIN SOD 40 MG/0.4 ML SYRINGE SC SCH (10:10)
[2017-05-09] MEDS: LISINOPRIL 10 MG TAB PO SCH ×2 (10:11→22:39)
[2017-05-09] MEDS: CARVEDILOL 12.5 MG TAB PO SCH ×2 (10:12→22:38)
[2017-05-09] MEDS: PANTOPRAZOLE 40 MG TAB PO SCH (10:13)
[2017-05-09] MEDS: LEVOFLOXACIN 500MG 100 ML IV SCH (10:13)
[2017-05-09] MEDS: cloNIDine HCL 0.1 MG TAB PO SCH ×2 (10:16→22:37)
[2017-05-09] MEDS: NITROGLYCERIN 0.2MG/HR TOPICAL PATCH TD SCH (10:54)
[2017-05-09 12:52] VITALS: BP 134/75
[2017-05-09 18:05] VITALS: BP 113/78
[2017-05-09] MEDS: HYDROmorphone HCL 2 MG/ML VL IV PRN (18:49)
[2017-05-09 22:00] VITALS: BP 134/80
[2017-05-09] MEDS: traZODone HCL 50 MG TAB PO SCH (22:38)
[2017-05-10] VITALS (7 sets, daily range): BP systolic 107–143; BP diastolic 69–88
[2017-05-10] MEDS: methylPREDNISolone SOD SUCC 40 MG/ML VL IV SCH ×3 (00:08→13:34)
[2017-05-10] MEDS: HYDROmorphone HCL 2 MG/ML VL IV PRN ×5 (00:45→21:02)
[2017-05-10] MEDS: IPRATROPIUM BROM 0.5 MG/2.5ML INH SOL NEB SCH ×4 (00:57→18:00)
[2017-05-10] MEDS: ALBUTEROL SULF 2.5 MG/0.5ML(0.5%) NEB SOLN NEB SCH ×3 (00:57→13:11)
[2017-05-10] MEDS: SPIRONOLACTONE 25 MG TAB PO SCH ×2 (06:34→17:15)
[2017-05-10] MEDS: BUDESONIDE (INHALATION) 0.5 MG/2 ML NEB NEB SCH ×2 (06:58→18:00)
[2017-05-10 07:02] LABS: Basophils # (auto) 0 uL; Basophils % (auto) 0.2 % (0.0-2.0); Eosinophils # (auto) 0 uL; Hematocrit 37.2 % (41.0-53.0); Hemoglobin 12.6 g/dL (13.5-17.5); Lymphocytes # (auto) 0.7 uL; Lymphocytes % (auto) 5.3 % (10.0-50.0); Mean Corpuscular Hemoglobin 30.8 pg (28.0-32.0); Mean Corpuscular Hgb Conc. 33.9 g/dL (32.0-36.0); Mean Corpuscular Volume 90.9 fL (80.0-100.0); Monocytes # (auto) 0.6 uL; Monocytes % (auto) 4.2 % (0.0-12.0); Neutrophils # (auto) 12.4 uL; Neutrophils % (auto) 90.3 % (37.0-80.0); Nucleated Red Blood Cells % 0.2 %; Platelet Count (auto) 183 10^3/uL (140-450); Red Blood Cells 4.09 10^6/uL (4.5-5.90); Red Cell Distribution Width 13.4 % (11.8-14.3); White Blood Cell 13.8 10^3/uL (4.4-10.8)
[2017-05-10 07:23] LABS: Albumin 2.5 g/dL (3.4-5.0); BUN/Creatinine Ratio 30.1; Bilirubin, Total 0.3 mg/dL (0.2-1.0); Calcium 8.4 mg/dL (8.5-10.1); Magnesium 2.5 mg/dL (1.6-2.6); Phosphorus 4.1 mg/dL (2.5-4.90); Potassium 4.5 mmol/L (3.5-5.1); Total Protein 6.2 g/dL (6.4-8.2)
[2017-05-10] MEDS: NITROGLYCERIN 0.2MG/HR TOPICAL PATCH TD SCH (10:00)
[2017-05-10] MEDS: LISINOPRIL 10 MG TAB PO SCH ×2 (11:06→22:15)
[2017-05-10] MEDS: cloNIDine HCL 0.1 MG TAB PO SCH ×2 (11:06→22:13)
[2017-05-10] MEDS: PANTOPRAZOLE 40 MG TAB PO SCH (11:06)
[2017-05-10] MEDS: CARVEDILOL 12.5 MG TAB PO SCH ×2 (11:07→22:14)
[2017-05-10] MEDS: MULTIPLE VITAMIN TAB PO SCH (11:07)
[2017-05-10] MEDS: ASPirin 81 mg TAB PO SCH (11:07)
[2017-05-10] MEDS: LEVOFLOXACIN 500MG 100 ML IV SCH (11:08)
[2017-05-10] MEDS: ENOXAPARIN SOD 40 MG/0.4 ML SYRINGE SC SCH (11:08)
[2017-05-10] MEDS ORDERED: FUROSEMIDE 40 MG/4 ML VIAL IV ONE (15:45)
[2017-05-10] MEDS: HYDROcodone-ACET 5/325MG TAB PO PRN (15:54)
[2017-05-10] MEDS: traZODone HCL 50 MG TAB PO SCH (22:17)
[2017-05-11] MEDS: IPRATROPIUM BROM 0.5 MG/2.5ML INH SOL NEB SCH ×4 (01:38→21:23)
[2017-05-11 05:00] VITALS: BP 123/78
[2017-05-11] MEDS: FUROSEMIDE 40 MG/4 ML VIAL IV SCH ×2 (05:54→18:43)
[2017-05-11] MEDS: SPIRONOLACTONE 25 MG TAB PO SCH ×2 (05:54→18:42)
[2017-05-11 09:01] VITALS: BP 146/104
[2017-05-11] MEDS: ENOXAPARIN SOD 40 MG/0.4 ML SYRINGE SC SCH (09:26)
[2017-05-11] MEDS: HYDROmorphone HCL 2 MG/ML VL IV PRN ×2 (09:26→18:51)
[2017-05-11] MEDS: LEVOFLOXACIN 500MG 100 ML IV SCH (09:26)
[2017-05-11] MEDS: cloNIDine HCL 0.1 MG TAB PO SCH ×2 (09:27→22:17)
[2017-05-11] MEDS: PANTOPRAZOLE 40 MG TAB PO SCH (09:27)
[2017-05-11] MEDS: LISINOPRIL 10 MG TAB PO SCH ×2 (09:27→22:17)
[2017-05-11] MEDS: MULTIPLE VITAMIN TAB PO SCH (09:27)
[2017-05-11] MEDS: ASPirin 81 mg TAB PO SCH (09:28)
[2017-05-11] MEDS: CARVEDILOL 12.5 MG TAB PO SCH ×2 (09:28→22:00)
[2017-05-11] MEDS: NITROGLYCERIN 0.2MG/HR TOPICAL PATCH TD SCH (09:29)
[2017-05-11] MEDS: BUDESONIDE (INHALATION) 0.5 MG/2 ML NEB NEB SCH ×2 (10:00→21:23)
[2017-05-11 13:40] VITALS: BP 122/78
[2017-05-11] MEDS: HYDROcodone-ACET 5/325MG TAB PO PRN (14:37)
[2017-05-11 16:58] VITALS: BP 122/79
[2017-05-11] MEDS: traZODone HCL 50 MG TAB PO SCH (22:17)
[2017-05-11 23:02] VITALS: BP 114/79
[2017-05-12] MEDS: HYDROmorphone HCL 2 MG/ML VL IV PRN ×2 (00:58→06:49)
[2017-05-12 01:07] VITALS: BP 114/79
[2017-05-12] MEDS: IPRATROPIUM BROM 0.5 MG/2.5ML INH SOL NEB SCH ×3 (01:42→11:31)
[2017-05-12 05:57] VITALS: BP 117/86
[2017-05-12] MEDS: FUROSEMIDE 40 MG/4 ML VIAL IV SCH (06:02)
[2017-05-12] MEDS: SPIRONOLACTONE 25 MG TAB PO SCH (06:02)
[2017-05-12] MEDS: BUDESONIDE (INHALATION) 0.5 MG/2 ML NEB NEB SCH (06:09)
[2017-05-12 09:00] VITALS: BP 122/80
[2017-05-12] MEDS: CARVEDILOL 12.5 MG TAB PO SCH (09:40)
[2017-05-12] MEDS: ENOXAPARIN SOD 40 MG/0.4 ML SYRINGE SC SCH (09:57)
[2017-05-12] MEDS: ASPirin 81 mg TAB PO SCH (09:57)
[2017-05-12] MEDS: MULTIPLE VITAMIN TAB PO SCH (09:57)
[2017-05-12] MEDS: LISINOPRIL 10 MG TAB PO SCH (09:57)
[2017-05-12] MEDS: PANTOPRAZOLE 40 MG TAB PO SCH (09:58)
[2017-05-12] MEDS: NITROGLYCERIN 0.2MG/HR TOPICAL PATCH TD SCH (09:58)
[2017-05-12] MEDS: cloNIDine HCL 0.1 MG TAB PO SCH (09:58)
[2017-05-12 13:00] VITALS: BP 129/82
[2017-05-13 00:48] VITALS: BP 118/79
== END 2017-05-12 15:30 | disposition home or self-care (01) | DRG 871 ==
LOC: EDBD 17:05 → ER 17:05 → TELE 17:06 → TELE-WESTW 05-08 15:18
PROVIDERS: ADMIT Internal Medicine; ATTEND Family Medicine
DX: A41.9 Sepsis, unspecified organism (principal); I50.43 Acute on chronic combined systolic (congestive) and diastolic (congestive) heart failure; E44.0 Moderate protein-calorie malnutrition; J18.9 Pneumonia, unspecified organism; N17.9 Acute kidney failure, unspecified; I13.0 Hypertensive heart and chronic kidney disease with heart failure and stage 1 through stage 4 chronic kidney disease, or unspecified chronic kidney disease; I42.9 Cardiomyopathy, unspecified; J44.1 Chronic obstructive pulmonary disease with (acute) exacerbation; J44.0 Chronic obstructive pulmonary disease with (acute) lower respiratory infection; J20.9 Acute bronchitis, unspecified; E78.5 Hyperlipidemia, unspecified; F17.210 Nicotine dependence, cigarettes, uncomplicated; N18.9 Chronic kidney disease, unspecified; K40.90 Unilateral inguinal hernia, without obstruction or gangrene, not specified as recurrent; F32.9 Major depressive disorder, single episode, unspecified; F41.9 Anxiety disorder, unspecified; I16.0 Hypertensive urgency; I25.10 Atherosclerotic heart disease of native coronary artery without angina pectoris; I25.2 Old myocardial infarction; Z59.0 Homelessness; Z81.8 Family history of other mental and behavioral disorders; Z82.49 Family history of ischemic heart disease and other diseases of the circulatory system; Z82.5 Family history of asthma and other chronic lower respiratory diseases; Z81.1 Family history of alcohol abuse and dependence; Z68.23 Body mass index [BMI] 23.0-23.9, adult
CPT/HCPCS: 36415; 71010; 76870; 80053; 80061; 81001; 82150; 82550; 83690; 83735; 83880; 84100; 84443; 84484; 85007; 85025; 85027; 87040; 87077; 87081; 87086; 87186; 87400; 93005; 94640; 94761; 96361; 96374; 96375; J1956

== ENCOUNTER 2017-05-18 02:24 | Inpatient (IN) | payer MEDICARE ==
[~2017-05-18] VITALS: Ht 167.6 cm; Wt 66.4 kg
[2017-05-18] MEDS ORDERED: ALBUTEROL SULF 2.5 MG/0.5ML(0.5%) NEB SOLN ONE (02:28)
[2017-05-18] MEDS ORDERED: IPRATROPIUM BROM 0.5 MG/2.5ML INH SOL ONE (02:29)
[2017-05-18] MEDS ORDERED: SODIUM CHLORIDE 0.9% 1,000 ML IV ONE (02:44)
[2017-05-18] MEDS ORDERED: IPRATROPIUM BROM 0.5 MG/2.5ML INH SOL HHN ONE (02:45)
[2017-05-18] MEDS ORDERED: methylPREDNISolone SOD SUCC 125 MG/2 ML VL IV ONE (02:45)
[2017-05-18] MEDS ORDERED: ALBUTEROL SULF 2.5 MG/0.5ML(0.5%) NEB SOLN HHN ONE (02:45)
[2017-05-18 04:02] LABS: Hematocrit 53.2 % (41.0-53.0); Hemoglobin 17.3 g/dL (13.5-17.5); Mean Corpuscular Hemoglobin 30.6 pg (28.0-32.0); Mean Corpuscular Hgb Conc. 32.5 g/dL (32.0-36.0); Mean Corpuscular Volume 94.2 fL (80.0-100.0); Platelet Count (auto) 270 10^3/uL (140-450); Red Blood Cells 5.65 10^6/uL (4.5-5.90); Red Cell Distribution Width 14.3 % (11.8-14.3)
[2017-05-18 04:08] LABS: Basophils % (manual) 0 (0.0-2.0); Eosinophils % (manual) 0 (0-7); Myelocytes % 0; Promyelocytes % 0; Reactive Lymphocytes 0; White Blood Cell 43.4 10^3/uL (4.4-10.8)
[2017-05-18 04:09] LABS: Blast Cells 0
[2017-05-18 04:18] LABS: Albumin 3.3 g/dL (3.4-5.0); BUN/Creatinine Ratio 15.1; Calcium 8.7 mg/dL (8.5-10.1); Potassium 3.8 mmol/L (3.5-5.1)
[2017-05-18 04:21] LABS: Bilirubin, Total 1.6 mg/dL (0.2-1.0); Total Protein 6.8 g/dL (6.4-8.2)
[2017-05-18 05:16] LABS: Band Neutrophils % (manual) 16; Lymphocytes % (manual) 3 (10.0-50.0); Metamyelocytes % 1; Monocytes % (manual) 6 (0-12)
[2017-05-18] MEDS ORDERED: LEVOFLOXACIN 500MG 100 ML IV ONE (06:00)
[2017-05-18 08:06] LABS: Lactic Acid w/Reflex 3.5 mmol/L (0.4-2.0)
[2017-05-18] MEDS ORDERED: DOCUSATE SOD 100 MG CAP PO PRN (09:30)
[2017-05-18] MEDS ORDERED: ACETAMINOPHEN 325 MG TAB PO PRN (09:30)
[2017-05-18] MEDS ORDERED: TEMAZEPAM 15 MG CAP PO PRN (09:30)
[2017-05-18] MEDS ORDERED: ONDANSETRON HCL 4 MG/2 ML VIAL IV PRN (09:30)
[2017-05-18] MEDS ORDERED: MORPHINE SULF INJ 2 MG/ML SYRINGE 1ML IV PRN ×2 (09:30)
[2017-05-18] MEDS ORDERED: NITROGLYCERIN 0.4 MG SL TAB SL PRN (09:30)
[2017-05-18] MEDS ORDERED: cloNIDine HCL 0.1 MG TAB PO PRN (09:45)
[2017-05-18] MEDS ORDERED: cefTRIAXone 1GM/10ml IVPUSH 10 ML IV ONE (09:45)
[2017-05-18] MEDS: CARVEDILOL 3.125 MG TAB PO SCH ×2 (10:00→12:14)
[2017-05-18] MEDS ORDERED: FAMOTIDINE 20 MG TAB PO SCH (10:00)
[2017-05-18] MEDS: FAMOTIDINE 20 MG TAB PO SCH (10:00)
[2017-05-18] MEDS: MULTIPLE VITAMIN TAB PO SCH (10:00)
[2017-05-18] MEDS: cloNIDine HCL 0.1 MG TAB PO SCH ×2 (10:00→22:15)
[2017-05-18] MEDS: traZODone HCL 50 MG TAB PO SCH ×2 (10:00→22:15)
[2017-05-18] MEDS: DIGOXIN 0.125 MG TAB PO SCH (10:00)
[2017-05-18] MEDS: AZITHROMYCIN 500MG/ 250ML 250 ML IV SCH (10:00)
[2017-05-18] MEDS: ALBUTEROL SULF 2.5 MG/0.5ML(0.5%) NEB SOLN NEB SCH ×2 (11:15→20:03)
[2017-05-18] MEDS: IPRATROPIUM BROM 0.5 MG/2.5ML INH SOL NEB SCH ×2 (11:15→20:03)
[2017-05-18] MEDS: ASPirin-EC 81 mg tab PO SCH (12:18)
[2017-05-18 12:33] VITALS: BP 130/80
[2017-05-18] MEDS: BOOST PLUS 8 ounce PO SCH ×2 (13:47→18:00)
[2017-05-18 13:55] LABS: Lactic Acid w/Reflex 3.6 mmol/L (0.4-2.0)
[2017-05-18] MEDS: SODIUM CHLOR 0.9% PF (SALINE LOCK) 10ML VIAL IV SCH ×2 (14:32→22:13)
[2017-05-18 16:03] LABS: Alcohol, Urine < 3.0 mg/dL (0-5); Opiate Scree,Urine NEGATIVE (NEGATIVE)
[2017-05-18 16:04] LABS: Amphetamine Screen, Urine POSITIVE (NEGATIVE); Barbiturate Scree,Urine NEGATIVE (NEGATIVE); Benzodiazephine Screen, Urine NEGATIVE (NEGATIVE); Cannabinoid Screen, Urine NEGATIVE (NEGATIVE); Cocaine Screen, Urine NEGATIVE (NEGATIVE); Phencyclidine Screen, Urine NEGATIVE (NEGATIVE)
[2017-05-18 16:47] LABS: Urine Bacteria NONE SEEN /hpf (None Seen); Urine Blood Negative /uL (Negative); Urine Hyaline Cast FEW /lpf (0 - 2); Urine Mucus FEW (None Seen); Urine Specific Gravity 1.019 (1.001-1.035); Urine WBC 1 /hpf (0 - 3)
[2017-05-18 17:00] VITALS: BP 93/42
[2017-05-18] MEDS: ATORVASTATIN 20 MG TAB PO SCH (22:15)
[2017-05-18 22:40] VITALS: BP 121/70
[2017-05-19] MEDS: ALBUTEROL SULF 2.5 MG/0.5ML(0.5%) NEB SOLN NEB SCH ×4 (00:49→18:51)
[2017-05-19] MEDS: IPRATROPIUM BROM 0.5 MG/2.5ML INH SOL NEB SCH ×4 (00:50→18:51)
[2017-05-19 04:26] VITALS: BP 149/58
[2017-05-19] MEDS: SODIUM CHLOR 0.9% PF (SALINE LOCK) 10ML VIAL IV SCH ×3 (06:07→21:44)
[2017-05-19 08:00] VITALS: BP 124/74
[2017-05-19] MEDS: BOOST PLUS 8 ounce PO SCH ×3 (08:43→18:11)
[2017-05-19] MEDS: cefTRIAXone 1GM/10ml IVPUSH 10 ML IV SCH (08:44)
[2017-05-19] MEDS: MULTIPLE VITAMIN TAB PO SCH (09:45)
[2017-05-19] MEDS: HYDROcodone-ACET 5/325MG TAB PO PRN ×2 (09:45→21:43)
[2017-05-19] MEDS: cloNIDine HCL 0.1 MG TAB PO SCH ×2 (09:45→21:44)
[2017-05-19] MEDS: FAMOTIDINE 20 MG TAB PO SCH (09:45)
[2017-05-19] MEDS: DIGOXIN 0.125 MG TAB PO SCH (09:45)
[2017-05-19] MEDS: traZODone HCL 50 MG TAB PO SCH ×2 (09:45→21:42)
[2017-05-19] MEDS: CARVEDILOL 3.125 MG TAB PO SCH ×2 (09:46→21:42)
[2017-05-19] MEDS: ASPirin-EC 81 mg tab PO SCH (09:46)
[2017-05-19] MEDS: AZITHROMYCIN 500MG/ 250ML 250 ML IV SCH (09:46)
[2017-05-19 10:25] LABS: Mean Corpuscular Volume 91.3 fL (80.0-100.0)
[2017-05-19 10:28] LABS: Mean Corpuscular Hemoglobin 30.4 pg (28.0-32.0); Mean Corpuscular Hgb Conc. 33.3 g/dL (32.0-36.0); Platelet Count (auto) 253 10^3/uL (140-450); Red Blood Cells 4.28 10^6/uL (4.5-5.90)
[2017-05-19 10:52] LABS: BUN/Creatinine Ratio 27.2; Potassium 3.7 mmol/L (3.5-5.1)
[2017-05-19 10:53] LABS: Albumin 2.4 g/dL (3.4-5.0); Bilirubin, Total 0.4 mg/dL (0.2-1.0); Calcium 8.4 mg/dL (8.5-10.1); Total Protein 6.2 g/dL (6.4-8.2)
[2017-05-19 10:54] LABS: White Blood Cell 38.4 10^3/uL (4.4-10.8)
[2017-05-19 10:55] LABS: Basophils % (manual) 0 (0.0-2.0); Blast Cells 0; Eosinophils % (manual) 0 (0-7); Metamyelocytes % 0; Monocytes % (manual) 0 (0-12); Myelocytes % 0; Promyelocytes % 0; Reactive Lymphocytes 0
[2017-05-19 11:59] VITALS: BP 119/79
[2017-05-19] MEDS ORDERED: FUROSEMIDE 40 MG TAB PO ONE (12:15)
[2017-05-19] MEDS ORDERED: POTASSIUM CHL 10 Meq TABLET PO ONE ×2 (12:45→12:54)
[2017-05-19] MEDS ORDERED: POTASSIUM CHL 20 Meq TABLET PO ONE (12:53)
[2017-05-19 15:36] LABS: Band Neutrophils % (manual) 8; Lymphocytes % (manual) 4 (10.0-50.0)
[2017-05-19 16:41] VITALS: BP 113/70
[2017-05-19] MEDS: ATORVASTATIN 20 MG TAB PO SCH (21:41)
[2017-05-19 22:05] VITALS: BP 128/72
[2017-05-20] VITALS (7 sets, daily range): BP systolic 102–150; BP diastolic 74–94
[2017-05-20] MEDS: SODIUM CHLOR 0.9% PF (SALINE LOCK) 10ML VIAL IV SCH ×3 (05:12→21:42)
[2017-05-20] MEDS: IPRATROPIUM BROM 0.5 MG/2.5ML INH SOL NEB SCH ×4 (05:55→19:50)
[2017-05-20] MEDS: ALBUTEROL SULF 2.5 MG/0.5ML(0.5%) NEB SOLN NEB SCH ×4 (05:55→19:50)
[2017-05-20 07:45] LABS: Basophils # (auto) 0.1 uL; Basophils % (auto) 0.5 % (0.0-2.0); Eosinophils # (auto) 0.1 uL; Eosinophils % (auto) 0.3 % (0.0-7.0); Hematocrit 38.9 % (41.0-53.0); Hemoglobin 12.9 g/dL (13.5-17.5); Lymphocytes # (auto) 1.4 uL; Lymphocytes % (auto) 7.6 % (10.0-50.0); Mean Corpuscular Hemoglobin 30.5 pg (28.0-32.0); Mean Corpuscular Hgb Conc. 33.3 g/dL (32.0-36.0); Mean Corpuscular Volume 91.6 fL (80.0-100.0); Monocytes # (auto) 0.9 uL; Monocytes % (auto) 4.9 % (0.0-12.0); Neutrophils # (auto) 16.2 uL; Neutrophils % (auto) 86.7 % (37.0-80.0); Platelet Count (auto) 240 10^3/uL (140-450); Red Blood Cells 4.25 10^6/uL (4.5-5.90); Red Cell Distribution Width 14.2 % (11.8-14.3); White Blood Cell 18.7 10^3/uL (4.4-10.8)
[2017-05-20 07:58] LABS: Albumin 2.3 g/dL (3.4-5.0); Calcium 8.6 mg/dL (8.5-10.1); Potassium 4.2 mmol/L (3.5-5.1)
[2017-05-20 08:00] LABS: BUN/Creatinine Ratio 40.8
[2017-05-20 08:02] LABS: Bilirubin, Total 0.3 mg/dL (0.2-1.0); Total Protein 5.8 g/dL (6.4-8.2)
[2017-05-20] MEDS: BOOST PLUS 8 ounce PO SCH ×3 (08:17→18:12)
[2017-05-20] MEDS: cefTRIAXone 1GM/10ml IVPUSH 10 ML IV SCH (08:17)
[2017-05-20] MEDS: HYDROcodone-ACET 5/325MG TAB PO PRN (08:18)
[2017-05-20] MEDS: AZITHROMYCIN 500MG/ 250ML 250 ML IV SCH (09:19)
[2017-05-20] MEDS: CARVEDILOL 3.125 MG TAB PO SCH ×2 (09:20→21:43)
[2017-05-20] MEDS: cloNIDine HCL 0.1 MG TAB PO SCH ×2 (09:20→21:42)
[2017-05-20] MEDS: traZODone HCL 50 MG TAB PO SCH ×2 (09:21→21:43)
[2017-05-20] MEDS: ASPirin-EC 81 mg tab PO SCH (09:21)
[2017-05-20] MEDS: POTASSIUM CHL 10 Meq TABLET PO SCH (09:22)
[2017-05-20] MEDS: FUROSEMIDE 40 MG TAB PO SCH (09:22)
[2017-05-20] MEDS: DIGOXIN 0.125 MG TAB PO SCH (09:22)
[2017-05-20] MEDS: FAMOTIDINE 20 MG TAB PO SCH (09:23)
[2017-05-20] MEDS: MULTIPLE VITAMIN TAB PO SCH (09:23)
[2017-05-20] MEDS: ATORVASTATIN 20 MG TAB PO SCH (21:43)
[2017-05-21] VITALS (7 sets, daily range): BP systolic 131–164; BP diastolic 66–108
[2017-05-21] MEDS: HYDROcodone-ACET 5/325MG TAB PO PRN ×5 (00:13→21:40)
[2017-05-21] MEDS: IPRATROPIUM BROM 0.5 MG/2.5ML INH SOL NEB SCH ×5 (00:55→23:30)
[2017-05-21] MEDS: ALBUTEROL SULF 2.5 MG/0.5ML(0.5%) NEB SOLN NEB SCH ×5 (00:55→23:30)
[2017-05-21] MEDS: SODIUM CHLOR 0.9% PF (SALINE LOCK) 10ML VIAL IV SCH ×3 (06:15→21:38)
[2017-05-21] MEDS: BOOST PLUS 8 ounce PO SCH ×3 (08:25→18:06)
[2017-05-21] MEDS: FUROSEMIDE 40 MG TAB PO SCH (10:00)
[2017-05-21] MEDS: cefTRIAXone 1GM/10ml IVPUSH 10 ML IV SCH (10:12)
[2017-05-21] MEDS: MULTIPLE VITAMIN TAB PO SCH (10:13)
[2017-05-21] MEDS: ASPirin-EC 81 mg tab PO SCH (10:13)
[2017-05-21] MEDS: FAMOTIDINE 20 MG TAB PO SCH (10:13)
[2017-05-21] MEDS: DIGOXIN 0.125 MG TAB PO SCH (10:14)
[2017-05-21] MEDS: POTASSIUM CHL 10 Meq TABLET PO SCH (10:14)
[2017-05-21] MEDS: CARVEDILOL 3.125 MG TAB PO SCH ×2 (10:14→21:39)
[2017-05-21] MEDS: traZODone HCL 50 MG TAB PO SCH ×2 (10:14→21:39)
[2017-05-21] MEDS: cloNIDine HCL 0.1 MG TAB PO SCH ×2 (10:15→21:38)
[2017-05-21] MEDS: AZITHROMYCIN 250 MG TAB PO SCH (10:21)
[2017-05-21 12:49] LABS: Basophils # (auto) 0 uL; Basophils % (auto) 0.2 % (0.0-2.0); Eosinophils # (auto) 0.1 uL; Eosinophils % (auto) 0.6 % (0.0-7.0); Hemoglobin 13.1 g/dL (13.5-17.5); Lymphocytes % (auto) 9.1 % (10.0-50.0); Mean Corpuscular Hemoglobin 30.6 pg (28.0-32.0); Mean Corpuscular Hgb Conc. 33.5 g/dL (32.0-36.0); Mean Corpuscular Volume 91.5 fL (80.0-100.0); Monocytes # (auto) 0.7 uL; Monocytes % (auto) 6.5 % (0.0-12.0); Neutrophils # (auto) 8.8 uL; Neutrophils % (auto) 83.6 % (37.0-80.0); Platelet Count (auto) 227 10^3/uL (140-450); Red Blood Cells 4.26 10^6/uL (4.5-5.90); Red Cell Distribution Width 13.9 % (11.8-14.3); White Blood Cell 10.5 10^3/uL (4.4-10.8)
[2017-05-21 13:18] LABS: Albumin 2.3 g/dL (3.4-5.0); BUN/Creatinine Ratio 34.7; Bilirubin, Total 0.2 mg/dL (0.2-1.0); Calcium 8.2 mg/dL (8.5-10.1); Total Protein 5.9 g/dL (6.4-8.2)
[2017-05-21] MEDS: methylPREDNISolone SOD SUCC 40 MG/ML VL IV SCH (16:45)
[2017-05-21] MEDS: ATORVASTATIN 20 MG TAB PO SCH (21:39)
[2017-05-22] MEDS: methylPREDNISolone SOD SUCC 40 MG/ML VL IV SCH (03:51)
[2017-05-22 05:28] LABS: Basophils # (auto) 0 uL; Basophils % (auto) 0.5 % (0.0-2.0); Eosinophils # (auto) 0.1 uL; Eosinophils % (auto) 1.7 % (0.0-7.0); Hematocrit 39.2 % (41.0-53.0); Hemoglobin 13.1 g/dL (13.5-17.5); Lymphocytes # (auto) 1.2 uL; Lymphocytes % (auto) 14.4 % (10.0-50.0); Mean Corpuscular Hemoglobin 30.5 pg (28.0-32.0); Mean Corpuscular Hgb Conc. 33.4 g/dL (32.0-36.0); Mean Corpuscular Volume 91.4 fL (80.0-100.0); Monocytes # (auto) 0.8 uL; Monocytes % (auto) 10.1 % (0.0-12.0); Neutrophils # (auto) 5.9 uL; Neutrophils % (auto) 73.3 % (37.0-80.0); Nucleated Red Blood Cells % 0.1 %; Platelet Count (auto) 224 10^3/uL (140-450); Red Blood Cells 4.29 10^6/uL (4.5-5.90); Red Cell Distribution Width 13.9 % (11.8-14.3)
[2017-05-22 05:59] LABS: Albumin 2.2 g/dL (3.4-5.0); Calcium 8.3 mg/dL (8.5-10.1)
[2017-05-22 06:00] VITALS: BP 118/50
[2017-05-22 06:01] LABS: Bilirubin, Total 0.3 mg/dL (0.2-1.0); Total Protein 5.8 g/dL (6.4-8.2)
[2017-05-22] MEDS: SODIUM CHLOR 0.9% PF (SALINE LOCK) 10ML VIAL IV SCH (06:42)
[2017-05-22 07:42] VITALS: BP 152/109
[2017-05-22] MEDS: IPRATROPIUM BROM 0.5 MG/2.5ML INH SOL NEB SCH ×2 (07:56→13:49)
[2017-05-22] MEDS: ALBUTEROL SULF 2.5 MG/0.5ML(0.5%) NEB SOLN NEB SCH ×2 (07:56→13:49)
[2017-05-22] MEDS: cefTRIAXone 1GM/10ml IVPUSH 10 ML IV SCH (09:00)
[2017-05-22] MEDS: BOOST PLUS 8 ounce PO SCH ×2 (09:04→12:25)
[2017-05-22] MEDS: FUROSEMIDE 40 MG TAB PO SCH (10:00)
[2017-05-22] MEDS: FAMOTIDINE 20 MG TAB PO SCH (10:03)
[2017-05-22] MEDS: AZITHROMYCIN 250 MG TAB PO SCH (10:03)
[2017-05-22] MEDS: cloNIDine HCL 0.1 MG TAB PO SCH (10:03)
[2017-05-22] MEDS: DIGOXIN 0.125 MG TAB PO SCH (10:04)
[2017-05-22] MEDS: POTASSIUM CHL 10 Meq TABLET PO SCH (10:04)
[2017-05-22] MEDS: MULTIPLE VITAMIN TAB PO SCH (10:05)
[2017-05-22] MEDS: CARVEDILOL 3.125 MG TAB PO SCH (10:05)
[2017-05-22] MEDS: ASPirin-EC 81 mg tab PO SCH (10:05)
[2017-05-22] MEDS: traZODone HCL 50 MG TAB PO SCH (10:57)
[2017-05-22] MEDS: HYDROcodone-ACET 5/325MG TAB PO PRN (11:13)
[2017-05-22 12:17] VITALS: BP 160/79
[2017-05-22 12:28] VITALS: BP 152/78
[2017-05-22] MEDS ORDERED: LEVOFLOXACIN 500 MG TAB PO SCH (13:15)
== END 2017-05-22 14:39 | DRG 871 ==
LOC: EDBD 02:24 → ER 02:41 → TELE 02:42 → TELE-CENTR 15:05
PROVIDERS: ADMIT Internal Medicine; ATTEND Internal Medicine
PROC: 5A09357 Assistance with Respiratory Ventilation, Less than 24 Consecutive Hours, Continuous Positive Airway Pressure (ICD-10-PCS; principal; 2017-05-18)
DX: A41.9 Sepsis, unspecified organism (principal); J96.01 Acute respiratory failure with hypoxia; N17.0 Acute kidney failure with tubular necrosis; I13.0 Hypertensive heart and chronic kidney disease with heart failure and stage 1 through stage 4 chronic kidney disease, or unspecified chronic kidney disease; J13 Pneumonia due to Streptococcus pneumoniae; I48.0 Paroxysmal atrial fibrillation; I50.42 Chronic combined systolic (congestive) and diastolic (congestive) heart failure; D75.1 Secondary polycythemia; E44.1 Mild protein-calorie malnutrition; I48.92 Unspecified atrial flutter; J45.901 Unspecified asthma with (acute) exacerbation; J44.1 Chronic obstructive pulmonary disease with (acute) exacerbation; J44.0 Chronic obstructive pulmonary disease with (acute) lower respiratory infection; N18.3 Chronic kidney disease, stage 3 (moderate); E78.5 Hyperlipidemia, unspecified; F15.10 Other stimulant abuse, uncomplicated; I70.8 Atherosclerosis of other arteries; K40.90 Unilateral inguinal hernia, without obstruction or gangrene, not specified as recurrent; F17.210 Nicotine dependence, cigarettes, uncomplicated; F32.9 Major depressive disorder, single episode, unspecified; F41.9 Anxiety disorder, unspecified; I25.10 Atherosclerotic heart disease of native coronary artery without angina pectoris; I25.2 Old myocardial infarction; Z59.0 Homelessness; Z81.1 Family history of alcohol abuse and dependence; Z68.23 Body mass index [BMI] 23.0-23.9, adult
CPT/HCPCS: 36415; 36600; 71045; 80053; 80307; 81001; 82805; 83605; 83735; 83880; 84484; 85007; 85025; 85027; 86850; 86900; 86901; 87040; 87070; 87077; 87081; 87186; 87205; 93005; 94640; 94660; 96361; 96365; 96375; 97163; 99291; J1956

== ENCOUNTER 2017-08-19 16:06 | Emergency (ER) | payer MEDICARE ==
[~2017-08-19] VITALS: Ht 167.6 cm; Wt 64.4 kg
[2017-08-19 20:33] VITALS: BP 140/70
== END 2017-08-19 17:40 | disposition left against medical advice (07) ==
LOC: EDUNIT# 16:06 → EDBD 16:06 → ER 16:08
DX: K40.90 Unilateral inguinal hernia, without obstruction or gangrene, not specified as recurrent (principal); I25.10 Atherosclerotic heart disease of native coronary artery without angina pectoris; I50.9 Heart failure, unspecified; N18.9 Chronic kidney disease, unspecified; J44.9 Chronic obstructive pulmonary disease, unspecified; E78.5 Hyperlipidemia, unspecified; I25.2 Old myocardial infarction; I13.0 Hypertensive heart and chronic kidney disease with heart failure and stage 1 through stage 4 chronic kidney disease, or unspecified chronic kidney disease; F17.210 Nicotine dependence, cigarettes, uncomplicated; Z59.0 Homelessness; Z79.899 Other long term (current) drug therapy
CPT/HCPCS: 74176; 93005

== ENCOUNTER 2017-12-21 08:37 | Inpatient (IN) | payer MEDICARE, MEDICAID ==
[~2017-12-21] VITALS: Ht 165.1 cm; Wt 68.0 kg
[2017-12-21 09:16] LABS: Urine Amorphous Crystal FEW /hpf (None Seen); Urine Bacteria NONE SEEN /hpf (None Seen); Urine Blood Negative /uL (Negative); Urine Specific Gravity 1.016 (1.001-1.035); Urine WBC 3 /hpf (0 - 3)
[2017-12-21 09:57] LABS: Basophils # (auto) 0 uL; Basophils % (auto) 0.3 % (0.0-2.0); Eosinophils # (auto) 0.1 uL; Eosinophils % (auto) 0.4 % (0.0-7.0); Hematocrit 48.9 % (41.0-53.0); Hemoglobin 16.7 g/dL (13.5-17.5); Lymphocytes # (auto) 2.2 uL; Lymphocytes % (auto) 12.2 % (10.0-50.0); Mean Corpuscular Hemoglobin 30.7 pg (28.0-32.0); Mean Corpuscular Hgb Conc. 34.2 g/dL (32.0-36.0); Mean Corpuscular Volume 89.7 fL (80.0-100.0); Monocytes # (auto) 2.9 uL; Monocytes % (auto) 16.5 % (0.0-12.0); Neutrophils # (auto) 12.5 uL; Neutrophils % (auto) 70.6 % (37.0-80.0); Nucleated Red Blood Cells % 0.1 %; Platelet Count (auto) 191 10^3/uL (140-450); Red Blood Cells 5.45 10^6/uL (4.5-5.90); Red Cell Distribution Width 14.1 % (11.8-14.3); White Blood Cell 17.7 10^3/uL (4.4-10.8)
[2017-12-21 10:15] LABS: Albumin 3.4 g/dL (3.4-5.0); BUN/Creatinine Ratio 17.8; Bilirubin, Total 1.1 mg/dL (0.2-1.0); Calcium 8.9 mg/dL (8.5-10.1); Potassium 3.2 mmol/L (3.5-5.1); Total Protein 7.7 g/dL (6.4-8.2)
[2017-12-21] MEDS ORDERED: ONDANSETRON HCL 4 MG/2 ML VIAL IV ONE ×2 (12:00→16:15)
[2017-12-21] MEDS ORDERED: MORPHINE SULFATE 4 MG/ML SYR/VIAL IV ONE (12:00)
[2017-12-21] MEDS ORDERED: PIPERACILLIN-TAZOB 3.375GM 100 ML IV ONE (12:00)
[2017-12-21] MEDS ORDERED: VANCOMYCIN PER PHARMACY 0 MG IV SCH (13:00)
[2017-12-21 13:03] LABS: Lactic Acid w/Reflex 2.1 mmol/L (0.4-2.0)
[2017-12-21] MEDS ORDERED: NITROGLYCERIN 0.4 MG SL TAB SL PRN (13:15)
[2017-12-21] MEDS ORDERED: MORPHINE SULF INJ 2 MG/ML SYRINGE 1ML IV PRN (13:15)
[2017-12-21] MEDS ORDERED: FAMOTIDINE (10MG/ML) 2ML VL IV ONE (13:15)
[2017-12-21] MEDS ORDERED: PANTOPRAZOLE 40 MG/10 ML VIAL IV ONE (13:15)
[2017-12-21] MEDS ORDERED: ONDANSETRON HCL 4 MG/2 ML VIAL IV PRN (13:15)
[2017-12-21] MEDS ORDERED: VANCOMYCIN 1GM/250ML 250 ML IV SCH (14:00)
[2017-12-21 14:27] LABS: INR 0.97 (0.9-1.15); Partial Thromboplastin Time 28.5 sec (23.78-33.04); Prothrombin Time 10.4 sec (9.27-12.13)
[2017-12-21] MEDS ORDERED: IPRATROPIUM BROM 0.5 MG/2.5ML INH SOL NEB ONE (14:45)
[2017-12-21] MEDS ORDERED: ALBUTEROL SULF 2.5 MG/0.5ML(0.5%) NEB SOLN NEB ONE (14:45)
[2017-12-21] MEDS ORDERED: SUCCINYLCHOLINE CHLORIDE 20 MG/ML 10ML VIAL IV ONE (14:51)
[2017-12-21] MEDS ORDERED: MIDAZOLAM HCL 1MG/1ML-2 ML VIAL ONE (14:53)
[2017-12-21] MEDS ORDERED: fentaNYL CITRATE 100 MCG/2 ML VL ONE (14:53)
[2017-12-21] MEDS ORDERED: ROCURONIUM 10MG/ML 10ML VIAL IV ONE (14:53)
[2017-12-21] MEDS ORDERED: PROPOFOL 10 MG/ML 20 ML IV ONE (15:00)
[2017-12-21] MEDS ORDERED: ceFAZolin 1GM VL ONE (15:14)
[2017-12-21] MEDS ORDERED: POVIDONE IODINE 10 % TOPICAL OINT 30GM TOP ONE (15:14)
[2017-12-21 16:00] VITALS: BP 120/64
[2017-12-21] MEDS ORDERED: ePHEDrine SULFATE 50 MG/ML AMP IV PRN (16:15)
[2017-12-21] MEDS ORDERED: hydrALAZINE HCL 20 MG/ML VL IV PRN (16:15)
[2017-12-21] MEDS ORDERED: MORPHINE SULFATE 4 MG/ML SYR/VIAL IV PRN (16:15)
[2017-12-21 17:00] VITALS: BP 126/82
[2017-12-21 17:43] VITALS: BP 126/82
[2017-12-21] MEDS: PIPERACILLIN-TAZOB 3.375GM 100 ML IV SCH ×2 (17:52→23:57)
[2017-12-21] MEDS: ALBUTEROL SULF 2.5 MG/0.5ML(0.5%) NEB SOLN NEB SCH (18:54)
[2017-12-21] MEDS: MORPHINE SULF INJ 2 MG/ML SYRINGE 1ML IV PRN (20:23)
[2017-12-21] MEDS ORDERED: POTASSIUM CHL 20MEQ/100ML 200 ML IV ONE (20:54)
[2017-12-21] MEDS: POTASSIUM CHL 20MEQ/100ML 100 ML IV SCH ×4 (21:43→23:43)
[2017-12-21 22:00] VITALS: BP 115/69
[2017-12-21] MEDS: SODIUM CHLORIDE 0.9% 1,000 ML IV SCH (22:11)
[2017-12-21] MEDS: VANCOMYCIN 1GM/250ML 250 ML IV SCH (22:11)
[2017-12-22] MEDS: MORPHINE SULF INJ 2 MG/ML SYRINGE 1ML IV PRN ×5 (00:21→21:50)
[2017-12-22] MEDS: ALBUTEROL SULF 2.5 MG/0.5ML(0.5%) NEB SOLN NEB SCH ×5 (00:35→19:40)
[2017-12-22 05:00] VITALS: BP 148/94
[2017-12-22] MEDS: PIPERACILLIN-TAZOB 3.375GM 100 ML IV SCH ×3 (05:46→17:32)
[2017-12-22 05:57] LABS: Basophils # (auto) 0 uL; Basophils % (auto) 0.3 % (0.0-2.0); Eosinophils # (auto) 0.1 uL; Eosinophils % (auto) 1.3 % (0.0-7.0); Hematocrit 49.7 % (41.0-53.0); Mean Corpuscular Hemoglobin 30.3 pg (28.0-32.0); Mean Corpuscular Hgb Conc. 34.3 g/dL (32.0-36.0); Mean Corpuscular Volume 88.5 fL (80.0-100.0); Monocytes # (auto) 1.9 uL; Monocytes % (auto) 16.5 % (0.0-12.0); Neutrophils # (auto) 7.5 uL; Neutrophils % (auto) 64.9 % (37.0-80.0); Nucleated Red Blood Cells % 0.2 %; Platelet Count (auto) 179 10^3/uL (140-450); Red Blood Cells 5.61 10^6/uL (4.5-5.90); Red Cell Distribution Width 13.9 % (11.8-14.3); White Blood Cell 11.6 10^3/uL (4.4-10.8)
[2017-12-22 06:20] LABS: Albumin 3.1 g/dL (3.4-5.0); BUN/Creatinine Ratio 13.5; Potassium 3.4 mmol/L (3.5-5.1)
[2017-12-22 06:22] LABS: Bilirubin, Total 1.2 mg/dL (0.2-1.0); Total Protein 7.1 g/dL (6.4-8.2)
[2017-12-22 09:04] VITALS: BP 134/97
[2017-12-22] MEDS: PANTOPRAZOLE 40 MG/10 ML VIAL IV SCH (09:52)
[2017-12-22] MEDS: FAMOTIDINE (10MG/ML) 2ML VL IV SCH (09:52)
[2017-12-22] MEDS: SODIUM CHLORIDE 0.9% 1,000 ML IV SCH ×2 (09:53→21:50)
[2017-12-22] MEDS: VANCOMYCIN 1GM/250ML 250 ML IV SCH ×2 (09:53→21:44)
[2017-12-22] MEDS ORDERED: POTASSIUM CHL 10 Meq TABLET PO ONE (11:45)
[2017-12-22] MEDS: Ensure Enlive Strawberry 8oz Bottle PO SCH ×3 (12:46→21:43)
[2017-12-22 13:00] VITALS: BP 149/97
[2017-12-22 17:00] VITALS: BP 158/79
[2017-12-22 21:39] VITALS: BP 144/92
[2017-12-23] MEDS: PIPERACILLIN-TAZOB 3.375GM 100 ML IV SCH ×4 (00:05→17:54)
[2017-12-23] MEDS: ALBUTEROL SULF 2.5 MG/0.5ML(0.5%) NEB SOLN NEB SCH ×4 (00:36→18:00)
[2017-12-23] MEDS: MORPHINE SULF INJ 2 MG/ML SYRINGE 1ML IV PRN ×4 (02:08→20:17)
[2017-12-23 04:54] VITALS: BP 135/90
[2017-12-23] MEDS: Ensure Enlive Strawberry 8oz Bottle PO SCH ×4 (06:00→22:00)
[2017-12-23 07:30] LABS: Basophils # (auto) 0 uL; Basophils % (auto) 0.4 % (0.0-2.0); Eosinophils # (auto) 0.4 uL; Eosinophils % (auto) 3.8 % (0.0-7.0); Hematocrit 38.7 % (41.0-53.0); Hemoglobin 13.8 g/dL (13.5-17.5); Lymphocytes # (auto) 2.3 uL; Lymphocytes % (auto) 23.8 % (10.0-50.0); Mean Corpuscular Hemoglobin 31.2 pg (28.0-32.0); Mean Corpuscular Hgb Conc. 35.8 g/dL (32.0-36.0); Mean Corpuscular Volume 87.1 fL (80.0-100.0); Monocytes # (auto) 1.5 uL; Monocytes % (auto) 15.9 % (0.0-12.0); Neutrophils # (auto) 5.5 uL; Neutrophils % (auto) 56.1 % (37.0-80.0); Platelet Count (auto) 207 10^3/uL (140-450); Red Blood Cells 4.44 10^6/uL (4.5-5.90); Red Cell Distribution Width 13.3 % (11.8-14.3); White Blood Cell 9.7 10^3/uL (4.4-10.8)
[2017-12-23 08:00] VITALS: BP_SYST 135; BP_SYST 161; BP_DIAS 102; BP_DIAS 90
[2017-12-23 08:00] LABS: Albumin 2.4 g/dL (3.4-5.0); BUN/Creatinine Ratio 11.4; Bilirubin, Total 1.2 mg/dL (0.2-1.0); Calcium 7.6 mg/dL (8.5-10.1); Total Protein 5.8 g/dL (6.4-8.2)
[2017-12-23 08:11] LABS: Potassium 2.7 mmol/L (3.5-5.1)
[2017-12-23] MEDS: VANCOMYCIN 1GM/250ML 250 ML IV SCH ×2 (09:21→22:07)
[2017-12-23] MEDS: PANTOPRAZOLE 40 MG/10 ML VIAL IV SCH (09:21)
[2017-12-23] MEDS: FAMOTIDINE (10MG/ML) 2ML VL IV SCH (09:21)
[2017-12-23] MEDS ORDERED: POTASSIUM CHL 20 Meq TABLET PO ONE (10:30)
[2017-12-23] MEDS: ENALAPRILAT 1.25 MG/ML-1ML VIAL IV PRN ×2 (11:29→20:51)
[2017-12-23 12:00] VITALS: BP 155/104
[2017-12-23] MEDS: SODIUM CHLORIDE 0.9% 1,000 ML IV SCH (15:02)
[2017-12-23] MEDS ORDERED: METOPROLOL TARTRATE 50 MG TAB PO ONE (15:15)
[2017-12-23 16:00] VITALS: BP 156/94
[2017-12-23] MEDS: METOPROLOL TARTRATE 50 MG TAB PO SCH (22:06)
[2017-12-23] MEDS ORDERED: hydrALAZINE HCL 20 MG/ML VL IV ONE (23:00)
[2017-12-24] MEDS: PIPERACILLIN-TAZOB 3.375GM 100 ML IV SCH ×3 (00:44→11:41)
[2017-12-24] MEDS ORDERED: cloNIDine HCL 0.1 MG TAB PO ONE (01:00)
[2017-12-24] MEDS: ENALAPRILAT 1.25 MG/ML-1ML VIAL IV PRN (04:43)
[2017-12-24 04:46] VITALS: BP 163/95
[2017-12-24] MEDS: Ensure Enlive Strawberry 8oz Bottle PO SCH ×3 (05:45→17:54)
[2017-12-24] MEDS: ALBUTEROL SULF 2.5 MG/0.5ML(0.5%) NEB SOLN NEB SCH ×4 (07:32→12:04)
[2017-12-24 08:00] VITALS: BP 159/94
[2017-12-24 08:40] LABS: Basophils # (auto) 0.1 uL; Basophils % (auto) 0.7 % (0.0-2.0); Eosinophils # (auto) 0.5 uL; Hematocrit 42.4 % (41.0-53.0); Hemoglobin 15.1 g/dL (13.5-17.5); Lymphocytes # (auto) 1.6 uL; Mean Corpuscular Hemoglobin 31.2 pg (28.0-32.0); Mean Corpuscular Hgb Conc. 35.6 g/dL (32.0-36.0); Mean Corpuscular Volume 87.4 fL (80.0-100.0); Monocytes # (auto) 1.1 uL; Monocytes % (auto) 8.9 % (0.0-12.0); Neutrophils # (auto) 9.6 uL; Neutrophils % (auto) 74.4 % (37.0-80.0); Nucleated Red Blood Cells % 0.2 %; Platelet Count (auto) 256 10^3/uL (140-450); Red Blood Cells 4.85 10^6/uL (4.5-5.90); Red Cell Distribution Width 13.4 % (11.8-14.3); White Blood Cell 12.9 10^3/uL (4.4-10.8)
[2017-12-24 08:56] LABS: Calcium 8.8 mg/dL (8.5-10.1); Magnesium 2.2 mg/dL (1.6-2.6); Potassium 3.2 mmol/L (3.5-5.1)
[2017-12-24 09:00] VITALS: BP_SYST 135; BP_SYST 159; BP_DIAS 86; BP_DIAS 94
[2017-12-24] MEDS: SODIUM CHLORIDE 0.9% 1,000 ML IV SCH (09:22)
[2017-12-24] MEDS: PANTOPRAZOLE 40 MG/10 ML VIAL IV SCH (09:22)
[2017-12-24] MEDS: METOPROLOL TARTRATE 50 MG TAB PO SCH (09:23)
[2017-12-24] MEDS ORDERED: cloNIDine HCL 0.1 MG TAB PO SCH (10:00)
[2017-12-24] MEDS: VANCOMYCIN 1GM/250ML 250 ML IV SCH (10:00)
[2017-12-24 13:00] VITALS: BP 124/80
[2017-12-24 15:26] VITALS: BP 129/80
[2017-12-24 17:04] VITALS: BP 139/89
== END 2017-12-24 18:15 | disposition home or self-care (01) | DRG 854 ==
LOC: ER 08:37 → EDBD 08:37 → TELE 08:38 → TELE-WESTW 17:22
PROVIDERS: ADMIT Internal Medicine; ATTEND Family Medicine
PROC: 0YQ50ZZ Repair Right Inguinal Region, Open Approach (ICD-10-PCS; principal; 2017-12-21 14:48)
DX: A41.9 Sepsis, unspecified organism (principal); K40.30 Unilateral inguinal hernia, with obstruction, without gangrene, not specified as recurrent; E87.1 Hypo-osmolality and hyponatremia; E44.0 Moderate protein-calorie malnutrition; I13.0 Hypertensive heart and chronic kidney disease with heart failure and stage 1 through stage 4 chronic kidney disease, or unspecified chronic kidney disease; J98.11 Atelectasis; N18.2 Chronic kidney disease, stage 2 (mild); E87.6 Hypokalemia; F12.90 Cannabis use, unspecified, uncomplicated; I50.9 Heart failure, unspecified; J44.9 Chronic obstructive pulmonary disease, unspecified; E78.00 Pure hypercholesterolemia, unspecified; F17.210 Nicotine dependence, cigarettes, uncomplicated; F32.9 Major depressive disorder, single episode, unspecified; F41.9 Anxiety disorder, unspecified; I25.10 Atherosclerotic heart disease of native coronary artery without angina pectoris; I25.2 Old myocardial infarction; Z81.8 Family history of other mental and behavioral disorders; Z82.49 Family history of ischemic heart disease and other diseases of the circulatory system; Z79.82 Long term (current) use of aspirin; Z81.1 Family history of alcohol abuse and dependence; Z68.24 Body mass index [BMI] 24.0-24.9, adult
CPT/HCPCS: 36415; 71045; 74176; 80048; 80053; 80202; 81001; 83605; 83735; 85025; 85610; 85730; 86850; 86900; 86901; 87040; 87077; 87186; 88302; 93005; 94640; 96374; 96375; 97163; C9113; J0330; J0690; J2250; J2405; J2543; J2704; J3480; J3490

== ENCOUNTER 2018-01-02 15:24 | Inpatient (IN) | payer MEDICARE, MEDICAID ==
[~2018-01-02] VITALS: Ht 185.4 cm; Wt 44.4 kg
[2018-01-02 16:08] LABS: Basophils # (auto) 0 uL; Basophils % (auto) 0.1 % (0.0-2.0); Eosinophils # (auto) 0.1 uL; Eosinophils % (auto) 0.5 % (0.0-7.0); Hematocrit 39.9 % (41.0-53.0); Lymphocytes # (auto) 1.4 uL; Lymphocytes % (auto) 7.6 % (10.0-50.0); Mean Corpuscular Hemoglobin 31.6 pg (28.0-32.0); Mean Corpuscular Hgb Conc. 35.1 g/dL (32.0-36.0); Mean Corpuscular Volume 90.2 fL (80.0-100.0); Monocytes # (auto) 0.8 uL; Monocytes % (auto) 4.4 % (0.0-12.0); Neutrophils % (auto) 87.4 % (37.0-80.0); Nucleated Red Blood Cells % 0.1 %; Platelet Count (auto) 279 10^3/uL (140-450); Red Blood Cells 4.43 10^6/uL (4.5-5.90); Red Cell Distribution Width 14.7 % (11.8-14.3); White Blood Cell 18.3 10^3/uL (4.4-10.8)
[2018-01-02 16:47] LABS: Anion Gap 10 (5-15); BUN/Creatinine Ratio 15.3; Blood Urea Nitrogen 15 mg/dL (7-18); Calcium 8.1 mg/dL (8.5-10.1); Carbon Dioxide 24 mmol/L (21-32); Chloride 106 mmol/L (98-107); GFR African American 97 mL/min; GFR Non-African American 80 mL/min; Glucose 136 mg/dL (74-106); Magnesium 1.7 mg/dL (1.6-2.6); Potassium 3.1 mmol/L (3.5-5.1); Sodium 140 mmol/L (136-145)
[2018-01-02 16:58] LABS: Alanine Aminotransferase 69 U/L (16-61); Alkaline Phosphatase 62 U/L (45-117); Aspartate Aminotransferase 67 U/L (15-37); Total Protein 6.3 g/dL (6.4-8.2)
[2018-01-02] MEDS ORDERED: SODIUM CHLORIDE 0.9% 1,000 ML IVB ONE (20:57)
[2018-01-02] MEDS ORDERED: POTASSIUM CHL 20 Meq TABLET PO ONE (21:45)
[2018-01-02] MEDS ORDERED: MORPHINE SULF INJ 2 MG/ML SYRINGE 1ML IV ONE (21:45)
[2018-01-02] MEDS ORDERED: cefTRIAXone 1GM/10ml IVPUSH 10 ML IV ONE (21:45)
[2018-01-02] MEDS ORDERED: ONDANSETRON HCL 4 MG/2 ML VIAL IV ONE (21:45)
[2018-01-02 22:05] LABS: Amylase 74 U/L (25-115); Lipase 156 U/L (73-393); Magnesium 1.9 mg/dL (1.6-2.6)
[2018-01-02 22:07] LABS: Partial Thromboplastin Time 26.8 sec (23.78-33.04); Prothrombin Time 10.7 sec (9.27-12.13)
[2018-01-02] MEDS ORDERED: ALBUTEROL SULF 2.5 MG/0.5ML(0.5%) NEB SOLN NEB PRN (23:15)
[2018-01-02] MEDS ORDERED: ACETAMINOPHEN 325 MG TAB PO PRN (23:15)
[2018-01-02] MEDS ORDERED: DOCUSATE SOD 100 MG CAP PO PRN (23:15)
[2018-01-02 23:52] LABS: Urine Bacteria NONE SEEN /hpf (None Seen); Urine Blood Negative /uL (Negative); Urine Hyaline Cast FEW /lpf (0 - 2); Urine Mucus FEW (None Seen); Urine Specific Gravity 1.029 (1.001-1.035); Urine WBC 1 /hpf (0 - 3)
[2018-01-03] MEDS: HYDROcodone-ACET 5/325MG TAB PO PRN ×4 (03:00→21:37)
[2018-01-03] MEDS: MORPHINE SULF INJ 2 MG/ML SYRINGE 1ML IV PRN ×3 (03:03→19:14)
[2018-01-03] MEDS: ONDANSETRON HCL 4 MG/2 ML VIAL IV PRN ×2 (03:04→13:20)
[2018-01-03] MEDS: CLINDAMYCIN 600MG IV 50 ML IV SCH ×3 (06:30→23:05)
[2018-01-03] MEDS: SPIRONOLACTONE 25 MG TAB PO SCH ×2 (06:30→18:14)
[2018-01-03] MEDS: METOPROLOL TARTRATE 50 MG TAB PO SCH ×2 (07:00→21:45)
[2018-01-03] MEDS: cloNIDine HCL 0.1 MG TAB PO SCH ×2 (07:00→21:44)
[2018-01-03] MEDS: cefTRIAXone 1GM/10ml IVPUSH 10 ML IV SCH (09:22)
[2018-01-03] MEDS: FUROSEMIDE 20 MG TAB PO SCH (09:49)
[2018-01-03] MEDS: ENOXAPARIN SOD 40 MG/0.4 ML SYRINGE SC SCH (09:49)
[2018-01-03] MEDS: FAMOTIDINE 20 MG TAB PO SCH ×2 (09:49→21:43)
[2018-01-03] MEDS: LISINOPRIL 10 MG TAB PO SCH (09:49)
[2018-01-03 12:15] LABS: Basophils # (auto) 0 uL; Basophils % (auto) 0.2 % (0.0-2.0); Eosinophils # (auto) 0.1 uL; Eosinophils % (auto) 1.1 % (0.0-7.0); Hematocrit 37.2 % (41.0-53.0); Hemoglobin 12.7 g/dL (13.5-17.5); Lymphocytes # (auto) 1.3 uL; Lymphocytes % (auto) 12.6 % (10.0-50.0); Mean Corpuscular Hemoglobin 31.3 pg (28.0-32.0); Mean Corpuscular Hgb Conc. 34.1 g/dL (32.0-36.0); Mean Corpuscular Volume 91.7 fL (80.0-100.0); Monocytes # (auto) 0.8 uL; Monocytes % (auto) 7.5 % (0.0-12.0); Neutrophils # (auto) 7.9 uL; Neutrophils % (auto) 78.6 % (37.0-80.0); Platelet Count (auto) 227 10^3/uL (140-450); Red Blood Cells 4.05 10^6/uL (4.5-5.90); Red Cell Distribution Width 15.2 % (11.8-14.3); White Blood Cell 10.1 10^3/uL (4.4-10.8)
[2018-01-03 12:36] LABS: Albumin 2.4 g/dL (3.4-5.0); BUN/Creatinine Ratio 16.2; Bilirubin, Total 0.7 mg/dL (0.2-1.0); Calcium 7.6 mg/dL (8.5-10.1); Potassium 3.8 mmol/L (3.5-5.1); Total Protein 5.5 g/dL (6.4-8.2)
[2018-01-03 15:05] VITALS: BP 127/78
[2018-01-03 15:58] VITALS: BP 127/78
[2018-01-03 17:00] VITALS: BP 143/79
[2018-01-03 20:00] VITALS: BP 160/92
[2018-01-03 21:57] VITALS: BP 160/92
[2018-01-03] MEDS: TEMAZEPAM 15 MG CAP PO PRN (23:32)
[2018-01-04 06:00] VITALS: BP 135/76
[2018-01-04] MEDS: CLINDAMYCIN 600MG IV 50 ML IV SCH ×3 (06:30→21:50)
[2018-01-04] MEDS: SPIRONOLACTONE 25 MG TAB PO SCH ×2 (06:31→18:10)
[2018-01-04] MEDS: MORPHINE SULF INJ 2 MG/ML SYRINGE 1ML IV PRN ×3 (06:42→18:48)
[2018-01-04 07:38] LABS: Basophils # (auto) 0 uL; Basophils % (auto) 0.3 % (0.0-2.0); Eosinophils # (auto) 0.2 uL; Eosinophils % (auto) 1.7 % (0.0-7.0); Hematocrit 37.9 % (41.0-53.0); Lymphocytes # (auto) 1.7 uL; Lymphocytes % (auto) 15.8 % (10.0-50.0); Mean Corpuscular Hemoglobin 31.5 pg (28.0-32.0); Mean Corpuscular Hgb Conc. 34.3 g/dL (32.0-36.0); Mean Corpuscular Volume 91.8 fL (80.0-100.0); Monocytes # (auto) 1.1 uL; Monocytes % (auto) 9.8 % (0.0-12.0); Neutrophils # (auto) 7.8 uL; Neutrophils % (auto) 72.4 % (37.0-80.0); Nucleated Red Blood Cells % 0.1 %; Platelet Count (auto) 213 10^3/uL (140-450); Red Blood Cells 4.13 10^6/uL (4.5-5.90); White Blood Cell 10.8 10^3/uL (4.4-10.8)
[2018-01-04 07:54] LABS: BUN/Creatinine Ratio 16.7; Calcium 8.2 mg/dL (8.5-10.1); Potassium 4.2 mmol/L (3.5-5.1)
[2018-01-04 09:00] VITALS: BP 155/96
[2018-01-04] MEDS: cefTRIAXone 1GM/10ml IVPUSH 10 ML IV SCH (09:39)
[2018-01-04] MEDS: FAMOTIDINE 20 MG TAB PO SCH ×2 (09:40→23:11)
[2018-01-04] MEDS: cloNIDine HCL 0.1 MG TAB PO SCH ×2 (09:40→21:50)
[2018-01-04] MEDS: LISINOPRIL 10 MG TAB PO SCH (09:40)
[2018-01-04] MEDS: ENOXAPARIN SOD 40 MG/0.4 ML SYRINGE SC SCH (09:40)
[2018-01-04] MEDS: METOPROLOL TARTRATE 50 MG TAB PO SCH ×2 (09:41→21:51)
[2018-01-04] MEDS: FUROSEMIDE 20 MG TAB PO SCH (09:41)
[2018-01-04] MEDS: HYDROcodone-ACET 5/325MG TAB PO PRN ×3 (09:52→23:48)
[2018-01-04 13:00] VITALS: BP 101/59
[2018-01-04 17:00] VITALS: BP 122/77
[2018-01-04] MEDS: Ensure Enlive Strawberry 8oz Bottle PO SCH ×2 (18:24→21:50)
[2018-01-04] MEDS: TEMAZEPAM 15 MG CAP PO PRN (21:51)
[2018-01-04 22:00] VITALS: BP 149/89
[2018-01-05] MEDS: HYDROcodone-ACET 5/325MG TAB PO PRN ×3 (03:57→22:29)
[2018-01-05] MEDS: SPIRONOLACTONE 25 MG TAB PO SCH ×2 (04:59→18:12)
[2018-01-05 05:00] VITALS: BP 151/106
[2018-01-05] MEDS: CLINDAMYCIN 600MG IV 50 ML IV SCH ×3 (05:06→22:29)
[2018-01-05] MEDS: Ensure Enlive Strawberry 8oz Bottle PO SCH ×4 (05:07→22:00)
[2018-01-05] MEDS: MORPHINE SULF INJ 2 MG/ML SYRINGE 1ML IV PRN ×4 (05:07→20:13)
[2018-01-05 07:24] LABS: Basophils # (auto) 0 uL; Basophils % (auto) 0.6 % (0.0-2.0); Eosinophils # (auto) 0.3 uL; Eosinophils % (auto) 3.3 % (0.0-7.0); Hematocrit 35.2 % (41.0-53.0); Hemoglobin 12.1 g/dL (13.5-17.5); Lymphocytes # (auto) 1.5 uL; Lymphocytes % (auto) 19.8 % (10.0-50.0); Mean Corpuscular Hemoglobin 31.5 pg (28.0-32.0); Mean Corpuscular Hgb Conc. 34.3 g/dL (32.0-36.0); Mean Corpuscular Volume 91.8 fL (80.0-100.0); Monocytes % (auto) 12.6 % (0.0-12.0); Neutrophils # (auto) 4.8 uL; Neutrophils % (auto) 63.7 % (37.0-80.0); Platelet Count (auto) 208 10^3/uL (140-450); Red Blood Cells 3.83 10^6/uL (4.5-5.90); White Blood Cell 7.6 10^3/uL (4.4-10.8)
[2018-01-05 07:56] LABS: BUN/Creatinine Ratio 18.9; Calcium 8.1 mg/dL (8.5-10.1); Potassium 3.8 mmol/L (3.5-5.1)
[2018-01-05 08:44] VITALS: BP 124/77
[2018-01-05] MEDS: cefTRIAXone 1GM/10ml IVPUSH 10 ML IV SCH (09:09)
[2018-01-05] MEDS: ENOXAPARIN SOD 40 MG/0.4 ML SYRINGE SC SCH (09:09)
[2018-01-05] MEDS: FAMOTIDINE 20 MG TAB PO SCH ×2 (09:10→23:21)
[2018-01-05] MEDS: FUROSEMIDE 20 MG TAB PO SCH (09:10)
[2018-01-05] MEDS: LISINOPRIL 10 MG TAB PO SCH (09:11)
[2018-01-05] MEDS: METOPROLOL TARTRATE 50 MG TAB PO SCH ×2 (10:00→23:20)
[2018-01-05] MEDS: cloNIDine HCL 0.1 MG TAB PO SCH ×2 (10:00→23:18)
[2018-01-05 13:03] VITALS: BP 159/97
[2018-01-05] MEDS: cloNIDine HCL 0.1 MG TAB PO PRN (16:18)
[2018-01-05 17:10] VITALS: BP 157/92
[2018-01-05 20:00] VITALS: BP 190/100
[2018-01-05] MEDS: TEMAZEPAM 15 MG CAP PO PRN (20:13)
[2018-01-05 23:00] VITALS: BP 180/92
[2018-01-06] MEDS ORDERED: ZOLPIDEM TARTRATE 5 MG TAB PO ONE (00:15)
[2018-01-06] MEDS ORDERED: traZODone HCL 50 MG TAB PO ONE (00:30)
[2018-01-06] MEDS: cloNIDine HCL 0.1 MG TAB PO PRN (00:41)
[2018-01-06 01:07] VITALS: BP 176/89
[2018-01-06] MEDS: MORPHINE SULF INJ 2 MG/ML SYRINGE 1ML IV PRN ×4 (04:05→12:10)
[2018-01-06 05:00] VITALS: BP 141/88
[2018-01-06] MEDS: Ensure Enlive Strawberry 8oz Bottle PO SCH ×2 (06:00→12:12)
[2018-01-06] MEDS: SPIRONOLACTONE 25 MG TAB PO SCH (06:07)
[2018-01-06] MEDS: CLINDAMYCIN 600MG IV 50 ML IV SCH ×2 (06:07→14:39)
[2018-01-06] MEDS ORDERED: HYDROcodone-ACET 5/325MG TAB PO PRN (06:15)
[2018-01-06 06:33] LABS: Basophils # (auto) 0 uL; Basophils % (auto) 0.4 % (0.0-2.0); Eosinophils # (auto) 0.3 uL; Eosinophils % (auto) 4.3 % (0.0-7.0); Hematocrit 38.4 % (41.0-53.0); Hemoglobin 13.4 g/dL (13.5-17.5); Lymphocytes # (auto) 1.3 uL; Lymphocytes % (auto) 20.4 % (10.0-50.0); Mean Corpuscular Hemoglobin 31.9 pg (28.0-32.0); Mean Corpuscular Hgb Conc. 34.9 g/dL (32.0-36.0); Mean Corpuscular Volume 91.4 fL (80.0-100.0); Neutrophils # (auto) 3.9 uL; Neutrophils % (auto) 59.9 % (37.0-80.0); Platelet Count (auto) 246 10^3/uL (140-450); Red Cell Distribution Width 14.8 % (11.8-14.3); White Blood Cell 6.4 10^3/uL (4.4-10.8)
[2018-01-06 06:59] LABS: Calcium 8.7 mg/dL (8.5-10.1); Potassium 3.7 mmol/L (3.5-5.1)
[2018-01-06] MEDS: cefTRIAXone 1GM/10ml IVPUSH 10 ML IV SCH (09:02)
[2018-01-06] MEDS: ENOXAPARIN SOD 40 MG/0.4 ML SYRINGE SC SCH (09:02)
[2018-01-06] MEDS: FAMOTIDINE 20 MG TAB PO SCH (09:02)
[2018-01-06] MEDS: LISINOPRIL 10 MG TAB PO SCH (09:03)
[2018-01-06] MEDS: FUROSEMIDE 20 MG TAB PO SCH (09:03)
[2018-01-06] MEDS: cloNIDine HCL 0.1 MG TAB PO SCH (09:04)
[2018-01-06 09:12] VITALS: BP 116/79
[2018-01-06 12:02] VITALS: BP 120/73
[2018-01-06] MEDS: METOPROLOL TARTRATE 50 MG TAB PO SCH (12:11)
[2018-01-06 16:04] VITALS: BP 120/73
[2018-01-06 17:12] VITALS: BP 124/75
[2018-01-06] MEDS ORDERED: ASCORBIC ACID 500 MG TAB PO SCH (22:00)
[2018-01-07] MEDS ORDERED: MULTIPLE VITAMIN TAB PO SCH (10:00)
== END 2018-01-06 17:30 | disposition home or self-care (01) | DRG 919 ==
LOC: ER 15:24 → EDBD 15:24 → OVERFLOW 15:25 → CENTRAL 01-03 15:00
PROVIDERS: ADMIT Nurse Practitioner; ATTEND Internal Medicine
DX: L76.34 Postprocedural seroma of skin and subcutaneous tissue following other procedure (principal); A41.9 Sepsis, unspecified organism; E44.0 Moderate protein-calorie malnutrition; I13.0 Hypertensive heart and chronic kidney disease with heart failure and stage 1 through stage 4 chronic kidney disease, or unspecified chronic kidney disease; I50.42 Chronic combined systolic (congestive) and diastolic (congestive) heart failure; Z68.1 Body mass index [BMI] 19.9 or less, adult; J98.11 Atelectasis; D63.8 Anemia in other chronic diseases classified elsewhere; E78.5 Hyperlipidemia, unspecified; F12.90 Cannabis use, unspecified, uncomplicated; Y83.8 Other surgical procedures as the cause of abnormal reaction of the patient, or of later complication, without mention of misadventure at the time of the procedure; N18.2 Chronic kidney disease, stage 2 (mild); F17.210 Nicotine dependence, cigarettes, uncomplicated; F41.9 Anxiety disorder, unspecified; I25.10 Atherosclerotic heart disease of native coronary artery without angina pectoris; J44.9 Chronic obstructive pulmonary disease, unspecified; K59.00 Constipation, unspecified; M43.17 Spondylolisthesis, lumbosacral region; E83.51 Hypocalcemia; E87.6 Hypokalemia; Z79.899 Other long term (current) drug therapy; I25.2 Old myocardial infarction; Z82.5 Family history of asthma and other chronic lower respiratory diseases; Z81.8 Family history of other mental and behavioral disorders; Z82.49 Family history of ischemic heart disease and other diseases of the circulatory system
CPT/HCPCS: 36415; 71045; 74176; 76881; 80048; 80053; 81001; 82150; 83605; 83690; 83735; 84484; 85025; 85610; 85730; 87040; 87081; 93005; 94761; 96372; 96374; 96375; 96376; J0696; J2405; J3490

== ENCOUNTER 2018-05-27 19:31 | Emergency (ER) | payer MEDICARE, MEDICAID ==
[~2018-05-27] VITALS: Ht 167.6 cm; Wt 70.8 kg
[~2018-05-27 19:31] MED LIST changes: +ATOR20TA PO; +CLOP75TA28 PO; +HYDR-4072 PO
[2018-05-27] MEDS ORDERED: SODIUM CHLORIDE 0.9% 3,000 ML IV ONE (22:00)
[2018-05-27 22:13] LABS: Alanine Aminotransferase 47 U/L (16-61); Albumin 3.4 g/dL (3.4-5.0); Anion Gap 13 (5-15); Aspartate Aminotransferase 52 U/L (15-37); BUN/Creatinine Ratio 24.3; Blood Alcohol < 3.0 mg/dL (0-5); Blood Urea Nitrogen 34 mg/dL (7-18); Calcium 8.6 mg/dL (8.5-10.1); Carbon Dioxide 23 mmol/L (21-32); Chloride 102 mmol/L (98-107); GFR Non-African American 53 mL/min; Glucose 116 mg/dL (74-106); Sodium 138 mmol/L (136-145)
[2018-05-27 22:16] LABS: Alkaline Phosphatase 82 U/L (45-117); Bilirubin, Total 0.8 mg/dL (0.2-1.0); Total Protein 7.1 g/dL (6.4-8.2)
[2018-05-27 22:22] LABS: GFR African American > 60 mL/min
[2018-05-27 22:25] LABS: Potassium 2.6 mmol/L (3.5-5.1)
[2018-05-27 22:52] LABS: Basophils # (auto) 0 uL; Basophils % (auto) 0.2 % (0.0-2.0); Eosinophils # (auto) 0.1 uL; Eosinophils % (auto) 0.6 % (0.0-7.0); Hematocrit 44.7 % (41.0-53.0); Hemoglobin 15.5 g/dL (13.5-17.5); Lymphocytes # (auto) 1.3 uL; Lymphocytes % (auto) 10.3 % (10.0-50.0); Mean Corpuscular Hgb Conc. 34.7 g/dL (32.0-36.0); Mean Corpuscular Volume 89.3 fL (80.0-100.0); Monocytes # (auto) 1.3 uL; Monocytes % (auto) 10.1 % (0.0-12.0); Neutrophils # (auto) 10.2 uL; Neutrophils % (auto) 78.8 % (37.0-80.0); Nucleated Red Blood Cells % 0.3 %; Platelet Count (auto) 138 10^3/uL (140-450); Red Blood Cells 5.01 10^6/uL (4.5-5.90); Red Cell Distribution Width 13.8 % (11.8-14.3)
[2018-05-27] MEDS ORDERED: POTASSIUM CHL 20 Meq TABLET PO ONE (23:00)
[2018-05-28 06:00] VITALS: BP 135/78
== END 2018-05-28 06:20 | disposition home or self-care (01) ==
LOC: EDBD 19:31 → ER 19:34
DX: S00.81XA Abrasion of other part of head, initial encounter (principal); E87.6 Hypokalemia; E86.0 Dehydration; F10.10 Alcohol abuse, uncomplicated; I13.0 Hypertensive heart and chronic kidney disease with heart failure and stage 1 through stage 4 chronic kidney disease, or unspecified chronic kidney disease; N18.9 Chronic kidney disease, unspecified; I50.9 Heart failure, unspecified; J44.9 Chronic obstructive pulmonary disease, unspecified; I25.2 Old myocardial infarction; F17.210 Nicotine dependence, cigarettes, uncomplicated; F12.10 Cannabis abuse, uncomplicated; E78.5 Hyperlipidemia, unspecified; Z59.0 Homelessness; W18.09XA Striking against other object with subsequent fall, initial encounter; Y93.89 Activity, other specified; Y92.89 Other specified places as the place of occurrence of the external cause; Y99.8 Other external cause status
CPT/HCPCS: 36415; 70450; 72125; 80053; 80320; 85025; 96360; 96361; 99284; J7030

== ENCOUNTER 2019-12-12 09:34 | Inpatient (IN) | payer MEDICARE, MEDICAID ==
[~2019-12-12] VITALS: Ht 175.3 cm; Wt 66.1 kg
[~2019-12-12 09:34] MED LIST changes: -ASP81EC PO; +ASPI-394 PO; +LISI-648 PO; -LISI10TA6 PO; +MULT-1018 PO; -MULTTAB61 PO
[2019-12-12] MEDS ORDERED: amLODIPine BESYLATE 5 MG TAB PO ONE (09:45)
[2019-12-12] MEDS ORDERED: FUROSEMIDE 20 MG/2 ML VIAL IV ONE (09:45)
[2019-12-12 10:49] LABS: Urine WBC None Seen /hpf (0 - 3)
[2019-12-12 11:04] LABS: Urine Bacteria NONE SEEN /hpf (None Seen); Urine Blood TRACE /uL (Negative); Urine Specific Gravity 1.008 (1.001-1.035)
[2019-12-12 11:53] LABS: Lymphocytes # (auto) 1.3 10 ^3/uL (0.4-5.4); Monocytes # (auto) 0.4 10 ^3/uL (0-1.3); White Blood Cell 6.6 10^3/uL (4.4-10.8)
[2019-12-12 11:56] LABS: Basophils # (auto) 0.1 10 ^3/uL (0-0.2); Basophils % (auto) 1.6 % (0.0-2.0); Eosinophils # (auto) 0.2 10 ^3/uL (0-0.8); Eosinophils % (auto) 2.4 % (0.0-7.0); Hematocrit 53.3 % (41.0-53.0); Hemoglobin 18.1 g/dL (13.5-17.5); Lymphocytes % (auto) 19.2 % (10.0-50.0); Mean Corpuscular Hemoglobin 30.8 pg (28.0-32.0); Mean Corpuscular Volume 90.6 fL (80.0-100.0); Monocytes % (auto) 6.2 % (0.0-12.0); Neutrophils # (auto) 4.7 10 ^3/uL (1.6-8.6); Neutrophils % (auto) 70.6 % (37.0-80.0); Nucleated Red Blood Cells % 0.2 %; Platelet Count (auto) 177 10^3/uL (140-450); Red Blood Cells 5.88 10^6/uL (4.5-5.90); Red Cell Distribution Width 14.1 % (11.8-14.3)
[2019-12-12 12:06] LABS: Albumin 4.2 g/dL (3.4-5.0); Calcium 9.3 mg/dL (8.5-10.1); Magnesium 2.4 mg/dL (1.6-2.6); Potassium 3.4 mmol/L (3.5-5.1)
[2019-12-12 12:11] LABS: Bilirubin, Total 1.1 mg/dL (0.2-1.0); Total Protein 8.1 g/dL (6.4-8.2)
[2019-12-12 12:24] LABS: CRP High Sensitivity 0.057 mg/dL (< 0.3)
[2019-12-12] MEDS ORDERED: POTASSIUM EFFERVESENT TAB 25 MEQ PO ONE ×2 (12:30→14:15)
[2019-12-12 13:29] LABS: BUN/Creatinine Ratio 16.8
[2019-12-12] MEDS ORDERED: ENOXAPARIN SOD 80 MG/0.8ML SYRINGE SC ONE (14:15)
[2019-12-12] MEDS ORDERED: LABETALOL HCL 5 MG/ML 4ML SYRINGE IV ONE (14:30)
[2019-12-12] MEDS ORDERED: ACETAMINOPHEN 500 MG TAB PO PRN ×2 (14:30)
[2019-12-12] MEDS ORDERED: METOPROLOL SUCCINATE XL 50 MG TAB PO ONE (14:30)
[2019-12-12] MEDS ORDERED: MORPHINE SULFATE 4 MG/ML SYR/VIAL IV PRN (14:30)
[2019-12-12] MEDS ORDERED: ALUM & MAG HYDROX-SIMETH LIQ(MAALOX) 30 ML PO ONE (14:30)
[2019-12-12] MEDS ORDERED: LORazepam 0.5 MG TAB PO PRN (14:30)
[2019-12-12] MEDS ORDERED: ACETAMINOPHEN 325 MG TAB PO PRN ×2 (14:30)
[2019-12-12] MEDS ORDERED: MORPHINE SULF INJ 2 MG/ML SYRINGE 1ML IV PRN (14:30)
[2019-12-12] MEDS ORDERED: SODIUM CHLORIDE 0.9% 1,000 ML IV SCH (14:30)
[2019-12-12] MEDS ORDERED: ONDANSETRON HCL 4 MG/2 ML VIAL IV PRN (14:30)
[2019-12-12] MEDS ORDERED: NITROGLYCERIN 0.4 MG SL TAB SL PRN ×2 (14:30)
[2019-12-12] MEDS ORDERED: ATORVASTATIN 20 MG TAB PO ONE (14:30)
[2019-12-12] MEDS ORDERED: IOHEXOL 350 MG/ML 100ML IJ ONE ×2 (14:38→16:24)
[2019-12-12] MEDS ORDERED: FUROSEMIDE 40 MG/4 ML VIAL IV ONE (14:45)
[2019-12-12] MEDS: FUROSEMIDE 40 MG/4 ML VIAL IV SCH (17:23)
[2019-12-12] MEDS: D5W/SOD CHL 0.45%/KCL 20MEQ 1,000 ML IV SCH (20:30)
[2019-12-12] MEDS ORDERED: ALBUTEROL SULF 2.5 MG/0.5ML(0.5%) NEB SOLN NEB PRN (20:30)
[2019-12-12] MEDS ORDERED: IPRATROPIUM BROM 0.5 MG/2.5ML INH SOL NEB PRN (20:30)
[2019-12-12] MEDS ORDERED: cloNIDine HCL 0.1 MG TAB PO PRN (20:30)
[2019-12-12 22:40] VITALS: BP 137/82
[2019-12-12] MEDS: METOPROLOL TARTRATE 25 MG TAB PO SCH (23:26)
[2019-12-13 02:46] VITALS: BP 137/82
[2019-12-13] MEDS: FUROSEMIDE 40 MG/4 ML VIAL IV SCH ×2 (04:39→18:51)
[2019-12-13 05:00] VITALS: BP 137/99
--- NOTE | 2019-12-13 05:57 | NUR ---
Respiratory note: ASSESSED PT FOR PRN TX PT WAS ASLEEP, NO RESP DISTRESS NOTED. HR 86, RR 16, SPO2 99% ON 3L NC. BS ARE CLEAR, NO INDICATION NEEDED AT THIS TIME. PT KNOWS TO HAVE RT PAGED IF TX IS NEEDED.
[2019-12-13] MEDS: D5W/SOD CHL 0.45%/KCL 20MEQ 1,000 ML IV SCH ×2 (06:30→16:30)
[2019-12-13 08:57] VITALS: BP 134/100
[2019-12-13] MEDS: SPIRONOLACTONE 25 MG TAB PO SCH (09:46)
[2019-12-13] MEDS: ENOXAPARIN SOD 40 MG/0.4 ML SYRINGE SC SCH (09:46)
[2019-12-13] MEDS: POTASSIUM CHL 20 Meq TABLET PO SCH (09:46)
[2019-12-13] MEDS: DOCUSATE SOD 100 MG CAP PO SCH (09:46)
[2019-12-13] MEDS: ASPirin 81 mg TAB PO SCH (09:47)
[2019-12-13] MEDS: LISINOPRIL 20 MG TAB PO SCH (09:49)
[2019-12-13] MEDS: METOPROLOL TARTRATE 25 MG TAB PO SCH ×2 (09:49→21:51)
--- NOTE | 2019-12-13 11:00 | NUR ---
AMA to smoke Patient signed AMA to go smoke.
--- NOTE | 2019-12-13 11:13 | NUR ---
Hospitalist Fermining Dr. Roque at bedside.
[2019-12-13 13:09] VITALS: BP 139/103
--- NOTE | 2019-12-13 16:03 | NUR ---
Sorority Mother Dr. Waller in to see patient. He sees patient in office and will round on him while hospitalized.
--- NOTE | 2019-12-13 16:19 | NUR ---
Off Unit Patient left unit in wheelchair to get some fresh air. Patient states that he is not going to smoke at this time, he is just getting fresh air.
--- NOTE | 2019-12-13 16:20 | NUR ---
GoPlanitronik Rep in to see patient. He will check back when patient is in room.
--- NOTE | 2019-12-13 17:00 | NUR ---
On Unit Patient just returned to unit, stated that he did not have enough energy to take himself back in wheelchair. Reminded patient that 30 minutes is the allotted time to be off unit.
--- NOTE | 2019-12-13 17:02 | NUR ---
Biotronik Rep interrogated pacemaker. Report in chart.
[2019-12-13 17:54] VITALS: BP 111/79
--- NOTE | 2019-12-13 19:20 | NUR ---
Opening Shift Note Received report from tae Vaca RN. Assumed care of patient, awake and alert. No S/S of distress/SOB or pain. Instructed on POC and to call for assist PRN, will continue to monitor for changes Q1hr and PRN. Bed placed in lowest position, bed alarm turned on and call light within reach.
[2019-12-13 22:00] VITALS: BP 161/74
[2019-12-13] MEDS ORDERED: ATORVASTATIN 20 MG TAB PO SCH (22:00)
--- NOTE | 2019-12-14 02:18 | NUR ---
Patient is having anxiety, calling almost every i5 munites and complaining of SOB. Patient's oxygen saturation is 94% on 3LNC. Advise patient to lay in fowlers position. Ativan given for anxiety. Will monitor.
[2019-12-14] MEDS: D5W/SOD CHL 0.45%/KCL 20MEQ 1,000 ML IV SCH ×2 (02:30→09:50)
[2019-12-14 05:00] VITALS: BP 127/74
[2019-12-14] MEDS: FUROSEMIDE 40 MG/4 ML VIAL IV SCH (05:34)
--- NOTE | 2019-12-14 07:00 | NUR ---
Patient is resting in bed with with eyes closed, no distress noted, saturating at 95 % on 3LNC.
--- NOTE | 2019-12-14 07:15 | NUR ---
Opening Shift Note Assumed care of patient, awake and alert. No S/S of distress/SOB or pain. Insructed on POC and to callfor assist PRN, will continue to monitor for changes Q1hr and PRN.
[2019-12-14 09:00] VITALS: BP 115/43
[2019-12-14] MEDS: DOCUSATE SOD 100 MG CAP PO SCH (09:49)
[2019-12-14] MEDS: SPIRONOLACTONE 25 MG TAB PO SCH (09:49)
[2019-12-14] MEDS: POTASSIUM CHL 20 Meq TABLET PO SCH (09:49)
[2019-12-14] MEDS: METOPROLOL TARTRATE 25 MG TAB PO SCH (09:49)
[2019-12-14] MEDS: ASPirin 81 mg TAB PO SCH (09:49)
[2019-12-14] MEDS: ENOXAPARIN SOD 40 MG/0.4 ML SYRINGE SC SCH (09:50)
[2019-12-14] MEDS: LISINOPRIL 20 MG TAB PO SCH (09:50)
--- NOTE | 2019-12-14 10:15 | NUR ---
pt downstairs smoking with AMA to smoke, manager front office called to report pt states he cant get back up to room varnish dipper made aware
--- NOTE | 2019-12-14 10:37 | NUR ---
pt back on unit extension service specialist in charge went to get pt
--- NOTE | 2019-12-14 11:38 | NUR ---
X2 PERIPHERAL IV REMOVED [facility] CALLED
--- NOTE | 2019-12-14 11:57 | NUR ---
PT TAKEN DOWN TO SMOKE AND AWAIT [facility] COMMUNICATED WITH MARKETING INSTRUCTOR TO INFORM ME WHEN CAB ARRIVES
--- NOTE | 2019-12-14 12:26 | NUR ---
CALLED [employer] INQUIRING ON DELAY OF GETTING PT PER CAB WILL BE ANOTHER 30MIN
--- NOTE | 2019-12-14 12:50 | NUR ---
keshav picked up pt pt is discharged
[2019-12-15] MEDS ORDERED: SACUBITRIL-VALSARTAN 24mg/26mg TAB PO SCH (10:00)
[2019-12-15] MEDS ORDERED: ALBU108A5 IN (14:34)
[2019-12-15] MEDS ORDERED: LISI-646 PO (14:34)
== END 2019-12-14 12:50 | disposition home or self-care (01) | DRG 280 ==
LOC: EDBD 09:34 → ER 09:34 → TELE 09:35 → TELE-WESTW 22:14
PROVIDERS: ADMIT Hospitalist; ATTEND Family Medicine
PROC: 4B02XTZ Measurement of Cardiac Defibrillator, External Approach (ICD-10-PCS; principal; 2019-12-13)
DX: I16.0 Hypertensive urgency (principal); I21.A1 Myocardial infarction type 2; I50.23 Acute on chronic systolic (congestive) heart failure; J80 Acute respiratory distress syndrome; I42.0 Dilated cardiomyopathy; I69.351 Hemiplegia and hemiparesis following cerebral infarction affecting right dominant side; E86.0 Dehydration; E87.6 Hypokalemia; I34.0 Nonrheumatic mitral (valve) insufficiency; D75.1 Secondary polycythemia; I11.0 Hypertensive heart disease with heart failure; E78.5 Hyperlipidemia, unspecified; F17.210 Nicotine dependence, cigarettes, uncomplicated; F20.9 Schizophrenia, unspecified; F31.9 Bipolar disorder, unspecified; I25.10 Atherosclerotic heart disease of native coronary artery without angina pectoris; Z95.810 Presence of automatic (implantable) cardiac defibrillator; Z91.19 Patient's noncompliance with other medical treatment and regimen; I25.2 Old myocardial infarction; J43.9 Emphysema, unspecified; Z79.02 Long term (current) use of antithrombotics/antiplatelets; Z79.51 Long term (current) use of inhaled steroids; Z79.899 Other long term (current) drug therapy; Z81.8 Family history of other mental and behavioral disorders; Z82.49 Family history of ischemic heart disease and other diseases of the circulatory system; Z82.5 Family history of asthma and other chronic lower respiratory diseases; F19.10 Other psychoactive substance abuse, uncomplicated
CPT/HCPCS: 36415; 70450; 71045; 71275; 80053; 81001; 82728; 83615; 83735; 83880; 84484; 85025; 86141; 93005; 93306; 94640; G0378; J3490

== ENCOUNTER 2019-12-15 06:43 | Inpatient (IN) | payer MEDICARE, MEDICAID ==
[~2019-12-15] VITALS: Ht 172.7 cm; Wt 65.8 kg
[2019-12-15 08:06] LABS: Basophils # (auto) 0.1 10 ^3/uL (0-0.2); Monocytes # (auto) 0.9 10 ^3/uL (0-1.3); Monocytes % (auto) 11.4 % (0.0-12.0); Neutrophils # (auto) 4.8 10 ^3/uL (1.6-8.6); Platelet Count (auto) 160 10^3/uL (140-450)
[2019-12-15 08:15] LABS: Basophils % (auto) 0.9 % (0.0-2.0); Eosinophils # (auto) 0.2 10 ^3/uL (0-0.8); Eosinophils % (auto) 3.1 % (0.0-7.0); Hematocrit 53.6 % (41.0-53.0); Hemoglobin 17.9 g/dL (13.5-17.5); Lymphocytes # (auto) 1.6 10 ^3/uL (0.4-5.4); Lymphocytes % (auto) 21.6 % (10.0-50.0); Mean Corpuscular Hemoglobin 30.7 pg (28.0-32.0); Mean Corpuscular Hgb Conc. 33.4 g/dL (32.0-36.0); Mean Corpuscular Volume 91.7 fL (80.0-100.0); Nucleated Red Blood Cells % 0.1 %; Red Blood Cells 5.84 10^6/uL (4.5-5.90); White Blood Cell 7.6 10^3/uL (4.4-10.8)
[2019-12-15 08:20] LABS: Albumin 3.9 g/dL (3.4-5.0); Calcium 9.6 mg/dL (8.5-10.1); Potassium 3.4 mmol/L (3.5-5.1)
[2019-12-15 08:22] LABS: INR 1.01 (0.9-1.15)
[2019-12-15 08:27] LABS: BUN/Creatinine Ratio 28.1; Bilirubin, Total 0.7 mg/dL (0.2-1.0); Total Protein 7.9 g/dL (6.4-8.2)
[2019-12-15 10:27] LABS: Urine Bacteria NONE SEEN /hpf (None Seen); Urine Blood Negative /uL (Negative); Urine Specific Gravity 1.025 (1.001-1.035); Urine WBC 1 /hpf (0 - 3)
[2019-12-15] MEDS ORDERED: ASPirin 81 mg TAB PO ONE (11:15)
[2019-12-15] MEDS ORDERED: cefTRIAXone 1GM/50ML D5W 50 ML IV ONE (11:15)
[2019-12-15] MEDS ORDERED: AZITHROMYCIN 500MG/ 250ML 250 ML IV ONE (11:15)
[2019-12-15] MEDS ORDERED: POTASSIUM EFFERVESENT TAB 25 MEQ PO ONE (11:15)
[2019-12-15] MEDS ORDERED: FUROSEMIDE 20 MG/2 ML VIAL IV ONE (11:15)
[2019-12-15] MEDS ORDERED: NITROGLYCERIN 0.4 MG SL TAB SL PRN (13:00)
[2019-12-15] MEDS ORDERED: ACETAMINOPHEN 325 MG TAB PO PRN (13:00)
[2019-12-15] MEDS ORDERED: HYDROcodone-ACET 10/325MG TAB PO PRN (13:30)
[2019-12-15] MEDS ORDERED: DOCUSATE CALCIUM 240 MG CAP PO PRN (13:30)
[2019-12-15] MEDS ORDERED: ALBUTEROL SULF 2.5 MG/0.5ML(0.5%) NEB SOLN NEB PRN (13:30)
[2019-12-15] MEDS ORDERED: metOLazone 5 MG TAB PO ONE (14:00)
[2019-12-15] MEDS ORDERED: SODIUM CHLOR 0.9% PF (SALINE LOCK) 10ML VIAL/SYR IV SCH (14:00)
[2019-12-15 14:29] VITALS: BP 136/75
[2019-12-15] MEDS ORDERED: LISI-646 PO (14:34)
[2019-12-15] MEDS ORDERED: ALBU108A5 IN (14:34)
[2019-12-15] MEDS ORDERED: SPIRONOLACTONE 25 MG TAB PO SCH (18:00)
[2019-12-15] MEDS ORDERED: traZODone HCL 50 MG TAB PO SCH (22:00)
[2019-12-15] MEDS ORDERED: METOPROLOL TARTRATE 25 MG TAB PO SCH (22:00)
[2019-12-15] MEDS ORDERED: ATORVASTATIN 20 MG TAB PO SCH (22:00)
[2019-12-15] MEDS ORDERED: FLUTICASONE PROP NASAL SPR 0.05 % (50MCG) 16GM EACHNOSTRI SCH (22:00)
[2019-12-15] MEDS ORDERED: METOPROLOL TARTRATE 50 MG TAB PO SCH (22:00)
[2019-12-15] MEDS ORDERED: cloNIDine HCL 0.1 MG TAB PO SCH ×2 (22:00)
[2019-12-16] MEDS ORDERED: FUROSEMIDE 20 MG TAB PO SCH (10:00)
[2019-12-16] MEDS ORDERED: ASPirin 81 mg TAB PO SCH (10:00)
[2019-12-16] MEDS ORDERED: POTASSIUM CHL 20 Meq TABLET PO SCH (10:00)
[2019-12-16] MEDS ORDERED: MULTIPLE VITAMIN TAB PO SCH (10:00)
[2019-12-16] MEDS ORDERED: ATORVASTATIN 20 MG TAB PO SCH (10:00)
[2019-12-16] MEDS ORDERED: FUROSEMIDE 40 MG/4 ML VIAL IV SCH (10:00)
[2019-12-16] MEDS ORDERED: ASPirin-EC 81 mg tab PO SCH (10:00)
[2019-12-16] MEDS ORDERED: CLOPIDOGREL BISULFATE 75 MG TAB PO SCH ×2 (10:00)
[2019-12-16] MEDS ORDERED: LISINOPRIL 20 MG TAB PO SCH (10:00)
[2019-12-16] MEDS ORDERED: levoFLOXacin 500MG 100 ML IV SCH (10:00)
== END 2019-12-15 15:12 | disposition left against medical advice (07) | DRG 291 ==
LOC: ER 06:43 → EDBD 06:43 → TELE 06:44
DX: I11.0 Hypertensive heart disease with heart failure (principal); J18.9 Pneumonia, unspecified organism; J44.0 Chronic obstructive pulmonary disease with (acute) lower respiratory infection; I50.43 Acute on chronic combined systolic (congestive) and diastolic (congestive) heart failure; E86.0 Dehydration; E87.6 Hypokalemia; F17.210 Nicotine dependence, cigarettes, uncomplicated; I25.10 Atherosclerotic heart disease of native coronary artery without angina pectoris; F41.9 Anxiety disorder, unspecified; K59.00 Constipation, unspecified; Z20.828 Contact with and (suspected) exposure to other viral communicable diseases; Z79.02 Long term (current) use of antithrombotics/antiplatelets; Z79.51 Long term (current) use of inhaled steroids; Z79.899 Other long term (current) drug therapy; Z81.8 Family history of other mental and behavioral disorders; Z82.49 Family history of ischemic heart disease and other diseases of the circulatory system; Z82.5 Family history of asthma and other chronic lower respiratory diseases; Z79.82 Long term (current) use of aspirin
CPT/HCPCS: 36415; 71045; 80053; 81001; 83880; 84484; 85025; 85610; 85730; 87040; 93005; 99291; G0378; J0696

== ENCOUNTER 2019-12-28 08:36 | Emergency (ER) | payer MEDICARE, MEDICAID ==
[~2019-12-28] VITALS: Ht 172.7 cm; Wt 68.0 kg
[~2019-12-28 08:36] MED LIST changes: +ALBU108A5 IN; -ALBU18 IN; -CLON0.2T PO; +LISI-646 PO; -LISI-648 PO
[2019-12-28] MEDS ORDERED: methylPREDNISolone SOD SUCC 125 MG/2 ML VL IV ONE (09:00)
[2019-12-28 09:46] LABS: Basophils # (auto) 0 10 ^3/uL (0-0.2); Basophils % (auto) 0.5 % (0.0-2.0); Eosinophils # (auto) 0.1 10 ^3/uL (0-0.8); Eosinophils % (auto) 1.3 % (0.0-7.0); Hematocrit 50.7 % (41.0-53.0); Hemoglobin 17.2 g/dL (13.5-17.5); Lymphocytes # (auto) 1.3 10 ^3/uL (0.4-5.4); Lymphocytes % (auto) 14.1 % (10.0-50.0); Mean Corpuscular Hemoglobin 31.2 pg (28.0-32.0); Mean Corpuscular Volume 91.8 fL (80.0-100.0); Monocytes # (auto) 0.7 10 ^3/uL (0-1.3); Monocytes % (auto) 7.3 % (0.0-12.0); Neutrophils # (auto) 7.2 10 ^3/uL (1.6-8.6); Neutrophils % (auto) 76.8 % (37.0-80.0); Nucleated Red Blood Cells % 0.2 %; Platelet Count (auto) 146 10^3/uL (140-450); Red Blood Cells 5.53 10^6/uL (4.5-5.90); Red Cell Distribution Width 14.4 % (11.8-14.3); White Blood Cell 9.4 10^3/uL (4.4-10.8)
[2019-12-28 09:57] LABS: Albumin 4.2 g/dL (3.4-5.0); Calcium 9.3 mg/dL (8.5-10.1); INR 0.98 (0.9-1.15); Partial Thromboplastin Time 29.1 sec (23.0-31.2); Potassium 3.7 mmol/L (3.5-5.1)
[2019-12-28] MEDS ORDERED: cloNIDine HCL 0.1 MG TAB PO ONE (10:00)
[2019-12-28] MEDS ORDERED: FUROSEMIDE 40 MG/4 ML VIAL IV ONE (10:15)
[2019-12-28 10:18] LABS: BUN/Creatinine Ratio 22.8; Bilirubin, Total 1.2 mg/dL (0.2-1.0)
[2019-12-28 11:19] LABS: Urine Bacteria NONE SEEN /hpf (None Seen); Urine Blood Negative /uL (Negative); Urine Specific Gravity 1.016 (1.001-1.035); Urine WBC 4 /hpf (0 - 3)
[2019-12-28 14:20] VITALS: BP 138/105
== END 2019-12-28 14:20 | disposition home or self-care (01) ==
LOC: ER 08:36 → EDBD 08:36 → ER 14:20
DX: J44.1 Chronic obstructive pulmonary disease with (acute) exacerbation (principal); I11.0 Hypertensive heart disease with heart failure; I50.9 Heart failure, unspecified; I25.10 Atherosclerotic heart disease of native coronary artery without angina pectoris; E78.5 Hyperlipidemia, unspecified; I25.2 Old myocardial infarction; F17.210 Nicotine dependence, cigarettes, uncomplicated
CPT/HCPCS: 36415; 71045; 80053; 81001; 83880; 84484; 85025; 85610; 85730; 93005; 96374; 96375; 99285; J1940; J2930

== ENCOUNTER 2020-01-05 08:38 | Inpatient (IN) | payer MEDICARE, MEDICAID ==
[~2020-01-05] VITALS: Ht 170.2 cm; Wt 63.1 kg
[2020-01-05] MEDS ORDERED: LIDOCAINE 2%HCL (LOCAL ANESTH.) INJ 20ML MDV ONE (08:47)
[2020-01-05] MEDS ORDERED: IODIXANOL 320MG/ML 100ML BTL IV ONE (08:47)
[2020-01-05] MEDS ORDERED: HEPARIN IN NS 1000Units/500mL 0 ML ONE (08:47)
[2020-01-05] MEDS ORDERED: SODIUM CHLORIDE 0.9% 1,000 ML IV ONE (08:48)
[2020-01-05] MEDS ORDERED: ATROPINE SULF 1 MG/10ml SYR ONE (08:49)
[2020-01-05] MEDS ORDERED: MIDAZOLAM HCL 1MG/1ML-2 ML VIAL ONE (08:50)
[2020-01-05] MEDS ORDERED: EPINEPHrine HCL 1 MG/10 ML SYRG ONE (08:50)
[2020-01-05] MEDS ORDERED: VERAPAMIL 2.5MG/ML INJ 2ML VIAL IV ONE (08:50)
[2020-01-05] MEDS ORDERED: fentaNYL CITRATE 100 MCG/2 ML VL ONE (08:50)
[2020-01-05] MEDS ORDERED: DOPamine 1600MCG/ML D5W 0 ML IV ONE (08:51)
[2020-01-05] MEDS ORDERED: HEPARIN SODIUM (PORCINE) 5000 UNITS/ML 1ML VIAL ONE (08:51)
[2020-01-05] MEDS ORDERED: SODIUM CHL 0.9% 0 ML ONE (08:52)
[2020-01-05] MEDS ORDERED: ANGIOMAX 250 MG VIAL IV ONE (08:52)
[2020-01-05] MEDS ORDERED: MORPHINE SULFATE 4 MG/ML SYR/VIAL IV ONE (09:00)
[2020-01-05] MEDS ORDERED: ONDANSETRON HCL 4 MG/2 ML VIAL IV ONE (09:00)
[2020-01-05] MEDS ORDERED: ASPirin 81 mg TAB PO ONE (09:00)
[2020-01-05 09:16] LABS: Basophils # (auto) 0.1 10 ^3/uL (0-0.2); Basophils % (auto) 0.6 % (0.0-2.0); Eosinophils # (auto) 0.1 10 ^3/uL (0-0.8); Eosinophils % (auto) 1.4 % (0.0-7.0); Hematocrit 44.9 % (41.0-53.0); Hemoglobin 15.3 g/dL (13.5-17.5); Lymphocytes # (auto) 1.3 10 ^3/uL (0.4-5.4); Lymphocytes % (auto) 13.6 % (10.0-50.0); Mean Corpuscular Hemoglobin 31.5 pg (28.0-32.0); Mean Corpuscular Hgb Conc. 34.1 g/dL (32.0-36.0); Mean Corpuscular Volume 92.4 fL (80.0-100.0); Monocytes # (auto) 0.9 10 ^3/uL (0-1.3); Monocytes % (auto) 9.6 % (0.0-12.0); Neutrophils # (auto) 6.9 10 ^3/uL (1.6-8.6); Neutrophils % (auto) 74.8 % (37.0-80.0); Platelet Count (auto) 118 10^3/uL (140-450); Red Blood Cells 4.86 10^6/uL (4.5-5.90); Red Cell Distribution Width 14.4 % (11.8-14.3); White Blood Cell 9.2 10^3/uL (4.4-10.8)
[2020-01-05 09:32] LABS: Albumin 3.7 g/dL (3.4-5.0); Calcium 8.7 mg/dL (8.5-10.1); Magnesium 2.4 mg/dL (1.6-2.6); Potassium 3.1 mmol/L (3.5-5.1)
[2020-01-05 09:36] LABS: BUN/Creatinine Ratio 20.1; Bilirubin, Total 0.9 mg/dL (0.2-1.0); Total Protein 6.9 g/dL (6.4-8.2)
[2020-01-05 09:38] LABS: INR 1.01 (0.9-1.15); Partial Thromboplastin Time 28.7 sec (23.0-31.2)
[2020-01-05] MEDS ORDERED: POTASSIUM EFFERVESENT TAB 25 MEQ PO ONE ×2 (11:30)
[2020-01-05] MEDS ORDERED: ENOXAPARIN SOD 80 MG/0.8ML SYRINGE SC ONE (11:30)
[2020-01-05] MEDS ORDERED: NITROGLYCERIN 0.4 MG SL TAB SL PRN (11:45)
[2020-01-05] MEDS ORDERED: MORPHINE SULF INJ 2 MG/ML SYRINGE 1ML IV PRN (11:45)
[2020-01-05] MEDS ORDERED: traMADol HCL 50 MG TAB PO PRN (12:00)
[2020-01-05] MEDS ORDERED: PROMETHAZINE HCL 25 MG/ML 1ML IV PRN (12:00)
[2020-01-05] MEDS ORDERED: ACETAMINOPHEN 500 MG TAB PO PRN (12:00)
[2020-01-05] MEDS ORDERED: DOCUSATE ORAL LIQUID 100 MG/10 ML UD PO PRN (12:30)
[2020-01-05] MEDS ORDERED: ALBU108A5 IN (13:25)
[2020-01-05] MEDS ORDERED: HEPARIN DRIP/D5W 100UNITS/ML 250 ML IV SCH (13:53)
--- NOTE | 2020-01-05 17:22 | NUR ---
Telemetry admit from ER JON RODRIGUEZ admitted to Telemetry unit after SBAR received. Patient oriented to Katie Siegel RN, unit, room, bed, and unit policies regarding patient care and visiting hours. Patient now on continuous telemetry monitoring, tele box # 27 and telemetry reading on arrival to unit is 110 ST. Patient placed on bedside oxygen, weighed by bed scale and encouraged to call if he needs something. All questions and concerns addressed, patient verbalized understanding.
--- NOTE | 2020-01-05 17:22 | NUR ---
Patient is lethargic.
--- NOTE | 2020-01-05 17:25 | NUR ---
Paged Wily Oscar.
[2020-01-05 17:26] VITALS: BP 148/118
--- NOTE | 2020-01-05 17:28 | NUR ---
Called Pharmacy ([phone]) to clarify the order for Heparin drip ordered for 1353 PM by Pili Oscar when patient was at the ER. Pharmacist Liliam said she's trying to call Dr. Waller to clarify the order. Pharmacist to call me back.
[2020-01-05 17:30] VITALS: BP 148/110
--- NOTE | 2020-01-05 17:34 | NUR ---
No diet order. Paged Dr. Anguiano.
--- NOTE | 2020-01-05 17:40 | NUR ---
Specimen bottle provided for the patient for urine specimen collection.
--- NOTE | 2020-01-05 17:48 | NUR ---
Dr. Anguiano called back. made aware there's no diet order. Dr. Anguiano ordered Cardiac Diet.
--- NOTE | 2020-01-05 17:50 | NUR ---
Pili Oscar called back. ordered to cancel the orders for Heparin drip and Troponin level. Dr. Waller ordered Lovenox 40 SC once daily for prophylaxis.
[2020-01-05] MEDS: SPIRONOLACTONE 25 MG TAB PO SCH (18:34)
[2020-01-05] MEDS: traZODone HCL 50 MG TAB PO SCH (21:09)
[2020-01-05 21:28] LABS: Amphetamine Screen, Urine POSITIVE (NEGATIVE); Barbiturate Scree,Urine NEGATIVE (NEGATIVE); Benzodiazephine Screen, Urine NEGATIVE (NEGATIVE); Cannabinoid Screen, Urine NEGATIVE (NEGATIVE); Cocaine Screen, Urine NEGATIVE (NEGATIVE); Opiate Scree,Urine POSITIVE (NEGATIVE); Phencyclidine Screen, Urine NEGATIVE (NEGATIVE)
[2020-01-05 21:35] LABS: Alcohol, Urine < 3.0 mg/dL (0-10)
[2020-01-05 22:00] VITALS: BP 161/99
[2020-01-05] MEDS ORDERED: METOPROLOL TARTRATE 50 MG TAB PO SCH (22:00)
--- NOTE | 2020-01-05 22:59 | NUR ---
Paged hospitalist to notify of patient requesting breathing treatment. Awaiting call back.
--- NOTE | 2020-01-05 23:22 | NUR ---
Spoke to MD Gleason and notified patient is requesting breathing treatment for SOB and no home inhaler. MD Gleason provided new order: Albuterol 2.5 mg q4 prn med neb. read back and confirmed with MD Gleason. will carry out.
--- NOTE | 2020-01-05 23:25 | NUR ---
Paged RT for patient requesting breathing treatment.
[2020-01-05] MEDS: ALBUTEROL SULF 2.5 MG/0.5ML(0.5%) NEB SOLN NEB PRN (23:44)
[2020-01-05 23:47] VITALS: BP 161/99
[2020-01-06] MEDS: TEMAZEPAM 15 MG CAP PO PRN ×2 (01:53→22:05)
--- NOTE | 2020-01-06 04:45 | NUR ---
patient refusing vitals. Educated patient on the importance of vitals, patient verbally acknowledge education given, patient still refused vitals.
[2020-01-06 05:00] VITALS: BP 146/100
[2020-01-06] MEDS: SPIRONOLACTONE 25 MG TAB PO SCH ×2 (05:03→18:52)
[2020-01-06 06:40] LABS: Basophils # (auto) 0.1 10 ^3/uL (0-0.2); Basophils % (auto) 0.9 % (0.0-2.0); Eosinophils # (auto) 0.3 10 ^3/uL (0-0.8); Eosinophils % (auto) 3.6 % (0.0-7.0); Hematocrit 43.3 % (41.0-53.0); Hemoglobin 14.3 g/dL (13.5-17.5); Lymphocytes # (auto) 1.5 10 ^3/uL (0.4-5.4); Lymphocytes % (auto) 18.4 % (10.0-50.0); Mean Corpuscular Hemoglobin 31.1 pg (28.0-32.0); Mean Corpuscular Volume 94.4 fL (80.0-100.0); Monocytes # (auto) 0.9 10 ^3/uL (0-1.3); Monocytes % (auto) 11.6 % (0.0-12.0); Neutrophils # (auto) 5.2 10 ^3/uL (1.6-8.6); Neutrophils % (auto) 65.5 % (37.0-80.0); Nucleated Red Blood Cells % 0.1 %; Platelet Count (auto) 104 10^3/uL (140-450); Red Blood Cells 4.58 10^6/uL (4.5-5.90); Red Cell Distribution Width 14.7 % (11.8-14.3); White Blood Cell 7.9 10^3/uL (4.4-10.8)
[2020-01-06 06:57] LABS: BUN/Creatinine Ratio 29.4; Calcium 8.3 mg/dL (8.5-10.1); Potassium 3.7 mmol/L (3.5-5.1)
[2020-01-06 07:00] LABS: Bilirubin, Total 1.4 mg/dL (0.2-1.0); Total Protein 5.9 g/dL (6.4-8.2)
[2020-01-06] MEDS: ALBUTEROL SULF 2.5 MG/0.5ML(0.5%) NEB SOLN NEB PRN ×2 (07:15→11:28)
--- NOTE | 2020-01-06 07:45 | NUR ---
Opening Shift Note Assumed care of patient, awake, alert, and oriented. No S/S of distress/SOB or pain. Bed in lowest/locked position, bed rails up x2, call light within reach. Instructed on POC and to call for assist PRN. Will continue to monitor for changes Q1hr and PRN.
[2020-01-06 08:00] VITALS: BP 129/102
[2020-01-06] MEDS ORDERED: metOLazone 5 MG TAB PO ONE (10:15)
[2020-01-06] MEDS: FUROSEMIDE 40 MG/4 ML VIAL IV SCH (10:47)
[2020-01-06] MEDS: MULTIPLE VITAMIN TAB PO SCH (10:48)
[2020-01-06] MEDS: POTASSIUM CHL 20 Meq TABLET PO SCH (10:48)
[2020-01-06] MEDS: ENOXAPARIN SOD 40 MG/0.4 ML SYRINGE SC SCH (10:48)
[2020-01-06] MEDS: ATORVASTATIN 20 MG TAB PO SCH (10:49)
[2020-01-06] MEDS: CLOPIDOGREL BISULFATE 75 MG TAB PO SCH (10:49)
[2020-01-06] MEDS: ASPirin-EC 81 mg tab PO SCH (10:49)
[2020-01-06] MEDS: CARVEDILOL 3.125 MG TAB PO SCH ×2 (10:50→22:04)
[2020-01-06] MEDS: LISINOPRIL 20 MG TAB PO SCH (10:53)
[2020-01-06 12:00] VITALS: BP 107/87
--- NOTE | 2020-01-06 13:01 | NUR ---
MD ROUNDS DR Lianet KHAN AT BEDSIDE DISCUSSING POC WITH PATIENT. NO NEW ORDERS AT THIS TIME. WILL CONTINUE TO MONITOR
[2020-01-06] MEDS ORDERED: ALBUTEROL SULF 2.5 MG/0.5ML(0.5%) NEB SOLN NEB PRN (15:30)
[2020-01-06 16:00] VITALS: BP 128/98
--- NOTE | 2020-01-06 16:04 | NUR ---
REPORT ENDORSED CARE TO LINDA CURRAN
--- NOTE | 2020-01-06 16:27 | NUR ---
AMA: PATIENT WISHES TO AMA. EDUCATION GIVEN ON PATIENT'S OXYGENATION. CURRENTLY ON 3LNC O2 SAT 96% JUST RECEIVED BREATHING TREATMENT AT 1611. PATIENT ARGUING WITH THIS RN THAT THE OXYGEN IS NOT ON, DEMONSTRATED TO THE PATIENT IT IS ON, AND WORKING. PATIENT STATED TO THIS RN, " YOU'RE A DUMB BITCH. I AM NOT PAYING 700$ A DAY FOR YOU TO NOT GIVE ME ANY OXYGEN." THIS RN UNABLE TO EDUCATE PATIENT AT THIS TIME, PATIENT NOT UNDERSTANDING TEACHINGS.
[2020-01-06] MEDS: ALBUTEROL SULF 2.5 MG/0.5ML(0.5%) NEB SOLN NEB SCH ×2 (18:31→21:22)
--- NOTE | 2020-01-06 18:50 | NUR ---
CARE ENDORSED TO NOC RN.
--- NOTE | 2020-01-06 19:00 | NUR ---
OPENING SHIFT NOTE: Assumed care of patient. Patient awake, alert and oriented x 4. Bed in lowest locked position with two side rails raised and call brown within reach. Instructed on POC and encouraged to call for assistance, all questions and concerns addressed, patient verbalized understanding. Will continue to monitor Q1 hr and PRN.
--- NOTE | 2020-01-06 19:30 | NUR ---
Patient states, "There's no oxygen coming out of this thing and I can't breathe," while waving oxygen tubing in the air. Primary RN assessed nasal cannula and confirmed oxygen flowing at 3LPM. When oxygen reapplied to patient patient states, "You're a liar I don't feel anything, take my oxygen levels because I know there is none going to my brain." Primary RN assessed vital signs and SPO2 is 98%. Patient requests oxygen be turned up despite adequate oxygenation levels. Nasal cannula reapplied at 5LPM, and patient states, "Get the hell out of my room now." Will continue to monitor Q1 hr and PRN.
--- NOTE | 2020-01-06 20:15 | NUR ---
Patient shouting and exposing genitals to staff. When this RN requested patient redress and stop shouting patient stated, "Someone needs to turn my damn oxygen on." Currently on 5LPM nasal cannula, demonstrated to patient that the oxygen is on and working. Patient stated, "It's not working I can't feel it. Get the hell away from me." This RN unable to educate patient at this time, patient refusing and unable to understand teachings.
--- NOTE | 2020-01-06 20:30 | NUR ---
Paged RT for patient requesting breathing treatment
[2020-01-06] MEDS: traZODone HCL 50 MG TAB PO SCH (22:05)
[2020-01-06 23:08] VITALS: BP 135/87
[2020-01-07] MEDS: ALBUTEROL SULF 2.5 MG/0.5ML(0.5%) NEB SOLN NEB SCH ×6 (01:42→22:17)
[2020-01-07 05:30] VITALS: BP 130/72
[2020-01-07] MEDS: SPIRONOLACTONE 25 MG TAB PO SCH ×2 (06:42→16:34)
--- NOTE | 2020-01-07 08:00 | NUR ---
Opening Shift Note Assumed care of patient, awake, alert, and oriented. No S/S of distress or pain. Patient c/o SOB with exertion. Breathing treatments ordered Q4h. Bed in lowest/locked position, bed rails up x2, call light within reach. Instructed on POC and to call for assist PRN. Will continue to monitor for changes Q1hr and PRN.
[2020-01-07 08:41] VITALS: BP 138/108
--- NOTE | 2020-01-07 08:46 | NUR ---
MD ROUNDS DR Lianet KHAN AT BEDSIDE DISCUSSING POC WITH PATIENT. NEW ORDERS RECEIVED/WILL CARRY OUT. WILL CONTINUE TO MONITOR
[2020-01-07] MEDS: ASPirin-EC 81 mg tab PO SCH (09:27)
[2020-01-07] MEDS: MULTIPLE VITAMIN TAB PO SCH (09:27)
[2020-01-07] MEDS: POTASSIUM CHL 20 Meq TABLET PO SCH (09:27)
[2020-01-07] MEDS: CLOPIDOGREL BISULFATE 75 MG TAB PO SCH (09:27)
[2020-01-07] MEDS: ATORVASTATIN 20 MG TAB PO SCH (09:27)
[2020-01-07] MEDS: ENOXAPARIN SOD 40 MG/0.4 ML SYRINGE SC SCH (09:28)
[2020-01-07] MEDS: FUROSEMIDE 40 MG/4 ML VIAL IV SCH (09:28)
[2020-01-07] MEDS: LISINOPRIL 20 MG TAB PO SCH (09:28)
[2020-01-07] MEDS ORDERED: metOLazone 5 MG TAB PO ONE (12:00)
[2020-01-07 12:43] VITALS: BP 147/114
--- NOTE | 2020-01-07 14:32 | NUR ---
EKG PERFORMED EKG D/T PATIENT HR 150+ BPM, B/P 147/114. EKG READING AFIB WITH RVR. SPOKE WITH DR Lianet KHAN. 1 TIME DOSE OF METOPROLOL [address] IV [address] PER [address] Lianet KHAN; ADMINISTER 1 DOSE, IF B/P "OK" NO NEED FOR MORE MEDICATIONS. WILL CONTINUE TO MONITOR
[2020-01-07] MEDS ORDERED: METOPROLOL TARTRATE 1MG/1ML-5ML VIAL IV ONE (14:45)
[2020-01-07 17:00] VITALS: BP 123/66
[2020-01-07] MEDS: TEMAZEPAM 15 MG CAP PO PRN (21:41)
[2020-01-07 22:00] VITALS: BP 168/82
[2020-01-07] MEDS: traZODone HCL 50 MG TAB PO SCH (22:00)
[2020-01-07 23:00] VITALS: BP 145/101
[2020-01-08] VITALS (7 sets, daily range): BP systolic 104–149; BP diastolic 76–97
--- NOTE | 2020-01-08 00:45 | NUR ---
Pt had a run of vtach of about 40 beats. Vagal maneuver successfully applied on carotid sinus. Pt rhythm changed to paced .Paged hospitalist.
--- NOTE | 2020-01-08 00:55 | NUR ---
Received and implemented orders from hospitalist. Patient asymptomatic.
[2020-01-08] MEDS ORDERED: METOPROLOL TARTRATE 1MG/1ML-5ML VIAL IV PRN (01:00)
[2020-01-08] MEDS: ALBUTEROL SULF 2.5 MG/0.5ML(0.5%) NEB SOLN NEB SCH ×8 (02:00→22:48)
--- NOTE | 2020-01-08 02:09 | NUR ---
PT REFUSED MED NEB TX. PT TO CONTINUE SLEEPING AT THIS TIME. NO RESPIRATORY DISTRESS NOTED. SPO2 98% ON 4L NC. WILL CONTINUE WITH NEXT SCHEDULED TX.
[2020-01-08] MEDS: SPIRONOLACTONE 25 MG TAB PO SCH ×2 (07:20→18:36)
--- NOTE | 2020-01-08 08:50 | NUR ---
Patient taken to laboratory tech in stable condition.
[2020-01-08] MEDS ORDERED: IODIXANOL 320MG/ML 100ML BTL IV ONE (08:59)
[2020-01-08] MEDS ORDERED: LIDOCAINE 2%HCL (LOCAL ANESTH.) INJ 20ML MDV ONE (08:59)
[2020-01-08] MEDS ORDERED: fentaNYL CITRATE 100 MCG/2 ML VL ONE (09:33)
[2020-01-08] MEDS ORDERED: MIDAZOLAM HCL 1MG/1ML-2 ML VIAL ONE (09:33)
[2020-01-08] MEDS ORDERED: ANGIOMAX 250 MG VIAL IV ONE (09:33)
[2020-01-08] MEDS ORDERED: SODIUM CHL 0.9% 0 ML ONE (09:33)
[2020-01-08] MEDS ORDERED: VERAPAMIL 2.5MG/ML INJ 2ML VIAL IV ONE (09:34)
[2020-01-08] MEDS ORDERED: HEPARIN SODIUM (PORCINE) 5000 UNITS/ML 1ML VIAL ONE (09:47)
[2020-01-08] MEDS ORDERED: diphenhdrAMINE HCL 50 MG/1 ML VL ONE (09:54)
--- NOTE | 2020-01-08 11:37 | NUR ---
Patient returned to unit in stable condition. Addendum: 01/08/20 at 1929 by NGOZI WOMACK RN RN Late entry: Vital signs post-heart cath 1140: 138/96, 104, 18, 97% 1155: 139/97, 98, 18, 96% 1210: 128/85, 78, 18, 97% 1225: 136/76, 61, 18, 98% 1325: 129/84, 71, 20, 97% 1425: 130/95, 60, 20, 99% 1525: 127/68, 103, 21, 98% 1625: 145/95, 110, 18, 99%
[2020-01-08] MEDS: MULTIPLE VITAMIN TAB PO SCH (13:04)
[2020-01-08] MEDS: CLOPIDOGREL BISULFATE 75 MG TAB PO SCH (13:04)
[2020-01-08] MEDS: POTASSIUM CHL 20 Meq TABLET PO SCH (13:04)
[2020-01-08] MEDS: ASPirin-EC 81 mg tab PO SCH (13:04)
[2020-01-08] MEDS: ATORVASTATIN 20 MG TAB PO SCH (13:04)
[2020-01-08] MEDS: FUROSEMIDE 40 MG/4 ML VIAL IV SCH (13:05)
[2020-01-08] MEDS: LISINOPRIL 20 MG TAB PO SCH (13:05)
--- NOTE | 2020-01-08 13:06 | NUR ---
Nutrition Assessment Notes Please refer to link for full assessment notes. Est Energy needs: 4558-4795 kcals (31-35 kcal/kgBW) d/t heart failure Est Protein needs: 76-93 gms/day (1.12-1.37 gm/kgBW) d/t heart failure Will continue to monitor and reassess prn. Addendum: 01/08/20 at [address] Amended: Links added.
--- NOTE | 2020-01-08 13:15 | NUR ---
Patient resting comfortably in bed with no distress noted. Scheduled medications given per order. Patient stable at this time.
--- NOTE | 2020-01-08 16:45 | NUR ---
Patient sitting on side of bed with no distress noted. Patient stable.
[2020-01-08] MEDS: ENOXAPARIN SOD 40 MG/0.4 ML SYRINGE SC SCH (18:35)
--- NOTE | 2020-01-08 18:38 | NUR ---
Scheduled medications given. Patient sitting on side of bed; eating dinner. Patient stable throughout shift.
[2020-01-08] MEDS: traZODone HCL 50 MG TAB PO SCH (21:15)
--- NOTE | 2020-01-08 22:48 | NUR ---
Respiratory note: PT REFUSE MED NEBS AT THIS TIME, WILL CONTINUE AT 0600. PT WANTS TO SLEEP
--- NOTE | 2020-01-09 02:17 | NUR ---
Patient had 20 beat run of ventricular tachycardia. Assessed patient and found him to be asleep. Patient's heart rate returned to paced rhythm. BP: 101/78, HR: 98, O2 saturation: 98% on 3 l/min NC, and temp is 98.7. Will continue to assess. Will provide PRN metoprolol for ventricular tachycardia and doesn't covert back with PM. Tele-strip placed in chart.
[2020-01-09 05:24] VITALS: BP_SYST 133
[2020-01-09] MEDS: ALBUTEROL SULF 2.5 MG/0.5ML(0.5%) NEB SOLN NEB SCH ×3 (05:25→13:41)
[2020-01-09] MEDS: SPIRONOLACTONE 25 MG TAB PO SCH (05:51)
[2020-01-09 08:00] VITALS: BP 114/68
--- NOTE | 2020-01-09 08:00 | NUR ---
Patient resting quietly in bed with no distress noted. Patient stable.
--- NOTE | 2020-01-09 08:51 | NUR ---
Assessment Per social service consult regarding patient lives in a shed. Patient is a 74-year-old male who is alert and oriented. Prior to admission patient lived home with friends in [place] and functioned independently. Patient can care for his own ADLs. Per patient he does not have any medical equipment now. Per patient he will return home to his prior living arrangements post discharge and family will transport him home. Informed patient he has a right to participate in all discharge planning. Patient verbalized understanding. Addendum: 01/09/20 at 0852 by TYLER HU Amended: Links added.
[2020-01-09 09:00] VITALS: BP 114/68
--- NOTE | 2020-01-09 09:20 | NUR ---
Patient receiving breathing treatment with RT at bedside. Patient stable.
[2020-01-09] MEDS: FUROSEMIDE 40 MG/4 ML VIAL IV SCH (10:52)
[2020-01-09] MEDS: POTASSIUM CHL 20 Meq TABLET PO SCH (10:53)
[2020-01-09] MEDS: CLOPIDOGREL BISULFATE 75 MG TAB PO SCH (10:53)
[2020-01-09] MEDS: LISINOPRIL 20 MG TAB PO SCH (10:53)
[2020-01-09] MEDS: MULTIPLE VITAMIN TAB PO SCH (10:53)
[2020-01-09] MEDS: ASPirin-EC 81 mg tab PO SCH (10:53)
[2020-01-09] MEDS: ATORVASTATIN 20 MG TAB PO SCH (10:53)
[2020-01-09] MEDS: ENOXAPARIN SOD 40 MG/0.4 ML SYRINGE SC SCH (10:54)
--- NOTE | 2020-01-09 10:54 | NUR ---
Scheduled medications given per order. Patient sitting on side of bed with no respiratory distress noted. Patient stable.
[2020-01-09 11:38] VITALS: BP 114/68
[2020-01-09 13:00] VITALS: BP 113/58
--- NOTE | 2020-01-09 14:15 | NUR ---
Patient sitting on side of bed with no respiratory distress noted. Patient stable at this time.
--- NOTE | 2020-01-09 15:10 | NUR ---
Discharge instructions Both written and verbal discharge instructions given to patient. Patient verbalized understanding of instructions. Written prescriptions given as well. All belongings with patient. Patient sitting on side of bed; requested taxi voucher. Will contact pediatric social worker for voucher.
--- NOTE | 2020-01-09 16:22 | NUR ---
re-assessment Per consult [facility] for PT and med management and safety. Alicia mitchell patient choice letter and patient has signed for [place]. MD order has been sent to [facility]. Per Ashley service will start on 01/10/2020. patient has been notified. Addendum: 01/09/20 at 1623 by Rosa Ni Amended: Links added.
--- NOTE | 2020-01-09 16:45 | NUR ---
Discharge Peripheral IV removed intact with no active bleeding; site covered with gauze. Patient tolerated well. Patient discharged to home in stable condition with no respiratory.
== END 2020-01-09 16:45 | disposition home health service (06) | DRG 280 ==
LOC: EDBD 08:38 → ER 08:38 → TELE 08:39 → TELE-CENTR 17:07
PROVIDERS: ADMIT Internal Medicine; ATTEND Family Medicine
PROC: B211YZZ Fluoroscopy of Multiple Coronary Arteries using Other Contrast (ICD-10-PCS; principal; 2020-01-08)
DX: I21.4 Non-ST elevation (NSTEMI) myocardial infarction (principal); I50.23 Acute on chronic systolic (congestive) heart failure; I42.0 Dilated cardiomyopathy; G81.91 Hemiplegia, unspecified affecting right dominant side; I24.9 Acute ischemic heart disease, unspecified; J44.9 Chronic obstructive pulmonary disease, unspecified; E87.6 Hypokalemia; I25.10 Atherosclerotic heart disease of native coronary artery without angina pectoris; I16.0 Hypertensive urgency; I25.5 Ischemic cardiomyopathy; E78.5 Hyperlipidemia, unspecified; F17.210 Nicotine dependence, cigarettes, uncomplicated; F32.9 Major depressive disorder, single episode, unspecified; I11.0 Hypertensive heart disease with heart failure; I34.0 Nonrheumatic mitral (valve) insufficiency; I25.2 Old myocardial infarction; Z82.49 Family history of ischemic heart disease and other diseases of the circulatory system; Z82.5 Family history of asthma and other chronic lower respiratory diseases; Z91.14 Patient's other noncompliance with medication regimen; Z95.810 Presence of automatic (implantable) cardiac defibrillator; Z81.8 Family history of other mental and behavioral disorders; F41.9 Anxiety disorder, unspecified; F15.10 Other stimulant abuse, uncomplicated; Z71.51 Drug abuse counseling and surveillance of drug abuser
CPT/HCPCS: 36415; 36600; 71045; 80053; 80061; 80307; 82550; 82805; 83735; 83880; 84443; 84484; 85025; 85610; 85730; 86850; 86900; 86901; 93005; 93454; 94640; 99152; G0378; J2250; J2405; Q9967

== ENCOUNTER 2020-01-30 05:19 | Inpatient (IN) | payer MEDICARE, MEDICAID ==
[~2020-01-30] VITALS: Ht 167.6 cm; Wt 64.6 kg
[2020-01-30 06:32] LABS: Basophils # (auto) 0.1 10 ^3/uL (0-0.2); Basophils % (auto) 0.9 % (0.0-2.0); Eosinophils # (auto) 0.2 10 ^3/uL (0-0.8); Eosinophils % (auto) 3.5 % (0.0-7.0); Hematocrit 45.8 % (41.0-53.0); Hemoglobin 15.9 g/dL (13.5-17.5); Lymphocytes # (auto) 1.6 10 ^3/uL (0.4-5.4); Lymphocytes % (auto) 22.8 % (10.0-50.0); Mean Corpuscular Hemoglobin 32.1 pg (28.0-32.0); Mean Corpuscular Hgb Conc. 34.8 g/dL (32.0-36.0); Mean Corpuscular Volume 92.3 fL (80.0-100.0); Monocytes # (auto) 0.7 10 ^3/uL (0-1.3); Neutrophils # (auto) 4.3 10 ^3/uL (1.6-8.6); Neutrophils % (auto) 62.8 % (37.0-80.0); Nucleated Red Blood Cells % 0.1 %; Platelet Count (auto) 129 10^3/uL (140-450); Red Blood Cells 4.96 10^6/uL (4.5-5.90); Red Cell Distribution Width 14.3 % (11.8-14.3); White Blood Cell 6.9 10^3/uL (4.4-10.8)
[2020-01-30] MEDS ORDERED: METOPROLOL TARTRATE 1MG/1ML-5ML VIAL IV ONE ×2 (06:45→08:00)
[2020-01-30 06:51] LABS: INR 1.02 (0.9-1.15); Partial Thromboplastin Time 28.4 sec (23.0-31.2)
[2020-01-30 06:57] LABS: Potassium 3.6 mmol/L (3.5-5.1)
[2020-01-30] MEDS ORDERED: MAGNESIUM SULFATE 1GM/100ML 100 ML IV ONE (07:00)
[2020-01-30 07:14] LABS: Albumin 3.8 g/dL (3.4-5.0); BUN/Creatinine Ratio 19.3; Bilirubin, Total 0.9 mg/dL (0.2-1.0); Calcium 9.5 mg/dL (8.5-10.1); Magnesium 2.2 mg/dL (1.6-2.6); Total Protein 7.4 g/dL (6.4-8.2)
[2020-01-30 07:37] LABS: Urine WBC None Seen /hpf (0 - 3)
[2020-01-30 07:47] LABS: Urine Bacteria NONE SEEN /hpf (None Seen); Urine Blood Negative /uL (Negative); Urine Specific Gravity 1.011 (1.001-1.035)
[2020-01-30 07:58] LABS: Alcohol, Urine < 3.0 mg/dL (0-10); Amphetamine Screen, Urine POSITIVE (NEGATIVE); Barbiturate Scree,Urine NEGATIVE (NEGATIVE); Benzodiazephine Screen, Urine NEGATIVE (NEGATIVE); Cannabinoid Screen, Urine NEGATIVE (NEGATIVE); Cocaine Screen, Urine NEGATIVE (NEGATIVE); Opiate Scree,Urine NEGATIVE (NEGATIVE); Phencyclidine Screen, Urine NEGATIVE (NEGATIVE)
[2020-01-30] MEDS ORDERED: FUROSEMIDE 20 MG/2 ML VIAL IV ONE (09:15)
[2020-01-30] MEDS ORDERED: AMIODARONE HCL 150 MG in D5W 5% 100 ML IV ONE (09:15)
[2020-01-30] MEDS ORDERED: AMIODARONE 450mg/250ml AE 250 ML IV SCH ×2 (09:17→15:17)
[2020-01-30] MEDS ORDERED: HYDROcodone-ACET 5/325MG TAB PO PRN (09:30)
[2020-01-30] MEDS ORDERED: HYDROmorphone HCL 2 MG/ML VL IV PRN (09:30)
[2020-01-30] MEDS ORDERED: DOCUSATE SOD 100 MG CAP PO PRN (09:30)
[2020-01-30] MEDS ORDERED: ALUM & MAG HYDROX-SIMETH LIQ(MAALOX) 30 ML PO PRN (09:30)
[2020-01-30] MEDS ORDERED: TEMAZEPAM 15 MG CAP PO PRN (09:30)
[2020-01-30] MEDS ORDERED: MORPHINE SULF INJ 2 MG/ML SYRINGE 1ML IV PRN ×2 (09:30)
[2020-01-30] MEDS ORDERED: ACETAMINOPHEN 325 MG TAB PO PRN (09:30)
[2020-01-30] MEDS ORDERED: NITROGLYCERIN 0.4 MG SL TAB SL PRN (09:30)
[2020-01-30] MEDS: BUDESONIDE (INHALATION) 0.5 MG/2 ML NEB NEB SCH ×2 (10:53→22:50)
[2020-01-30 11:22] VITALS: BP 139/93
[2020-01-30] MEDS: SODIUM CHLOR 0.9% PF (SALINE LOCK) 10ML VIAL/SYR IV SCH ×2 (14:19→21:20)
[2020-01-30] MEDS: FUROSEMIDE 40 MG/4 ML VIAL IV SCH ×2 (14:23→21:20)
[2020-01-30 17:00] VITALS: BP 156/71
[2020-01-30] MEDS: ATORVASTATIN 20 MG TAB PO SCH ×2 (21:20→21:32)
[2020-01-30] MEDS: METOPROLOL TARTRATE 50 MG TAB PO SCH ×2 (21:21→21:32)
[2020-01-30 23:42] VITALS: BP 138/94
[2020-01-31] MEDS: SODIUM CHLOR 0.9% PF (SALINE LOCK) 10ML VIAL/SYR IV SCH ×3 (05:31→21:30)
[2020-01-31] MEDS: FUROSEMIDE 40 MG/4 ML VIAL IV SCH ×3 (05:31→21:30)
[2020-01-31 05:45] VITALS: BP 158/88
[2020-01-31 06:19] LABS: Basophils # (auto) 0 10 ^3/uL (0-0.2); Basophils % (auto) 0.5 % (0.0-2.0); Eosinophils # (auto) 0.3 10 ^3/uL (0-0.8); Eosinophils % (auto) 4.5 % (0.0-7.0); Hematocrit 47.3 % (41.0-53.0); Hemoglobin 16.5 g/dL (13.5-17.5); Lymphocytes # (auto) 1.6 10 ^3/uL (0.4-5.4); Lymphocytes % (auto) 25.2 % (10.0-50.0); Mean Corpuscular Hemoglobin 32.1 pg (28.0-32.0); Mean Corpuscular Hgb Conc. 34.9 g/dL (32.0-36.0); Monocytes # (auto) 0.8 10 ^3/uL (0-1.3); Monocytes % (auto) 12.7 % (0.0-12.0); Neutrophils # (auto) 3.7 10 ^3/uL (1.6-8.6); Neutrophils % (auto) 57.1 % (37.0-80.0); Nucleated Red Blood Cells % 0.1 %; Platelet Count (auto) 116 10^3/uL (140-450); Red Blood Cells 5.14 10^6/uL (4.5-5.90); Red Cell Distribution Width 13.7 % (11.8-14.3); White Blood Cell 6.5 10^3/uL (4.4-10.8)
[2020-01-31 06:40] LABS: Albumin 3.5 g/dL (3.4-5.0); Calcium 8.8 mg/dL (8.5-10.1); Magnesium 2.4 mg/dL (1.6-2.6); Potassium 3.1 mmol/L (3.5-5.1)
[2020-01-31 06:44] LABS: BUN/Creatinine Ratio 19.7; Bilirubin, Total 1.3 mg/dL (0.2-1.0)
[2020-01-31] MEDS: BUDESONIDE (INHALATION) 0.5 MG/2 ML NEB NEB SCH ×2 (06:49→22:24)
[2020-01-31] MEDS: CLOPIDOGREL BISULFATE 75 MG TAB PO SCH (08:34)
[2020-01-31] MEDS: MULTIPLE VITAMIN TAB PO SCH (08:34)
[2020-01-31] MEDS: ASPirin-EC 81 mg tab PO SCH (08:34)
[2020-01-31] MEDS: METOPROLOL TARTRATE 50 MG TAB PO SCH ×2 (08:34→21:31)
[2020-01-31] MEDS: LISINOPRIL 20 MG TAB PO SCH (08:36)
[2020-01-31 08:37] VITALS: BP 160/89
[2020-01-31 12:49] VITALS: BP 153/99
[2020-01-31 16:49] VITALS: BP 102/40
[2020-01-31] MEDS ORDERED: IPRATROPIUM BROM 0.5 MG/2.5ML INH SOL NEB PRN (17:15)
[2020-01-31] MEDS: IPRATROPIUM BROM 0.5 MG/2.5ML INH SOL NEB PRN ×2 (18:13→22:24)
[2020-01-31] MEDS: MUPIROCIN 2% OINT 15gm or 22gm EACHNOSTRI SCH (21:30)
[2020-01-31] MEDS: ATORVASTATIN 20 MG TAB PO SCH (21:30)
[2020-01-31 22:07] VITALS: BP 150/69
[2020-02-01 05:00] VITALS: BP 144/62
[2020-02-01] MEDS: FUROSEMIDE 40 MG/4 ML VIAL IV SCH (06:26)
[2020-02-01] MEDS: SODIUM CHLOR 0.9% PF (SALINE LOCK) 10ML VIAL/SYR IV SCH (06:26)
[2020-02-01] MEDS: BUDESONIDE (INHALATION) 0.5 MG/2 ML NEB NEB SCH (07:00)
[2020-02-01] MEDS: IPRATROPIUM BROM 0.5 MG/2.5ML INH SOL NEB PRN (07:00)
[2020-02-01 09:00] VITALS: BP 96/73
[2020-02-01] MEDS: ASPirin-EC 81 mg tab PO SCH (09:40)
[2020-02-01] MEDS: MULTIPLE VITAMIN TAB PO SCH (09:41)
[2020-02-01] MEDS: CLOPIDOGREL BISULFATE 75 MG TAB PO SCH (09:41)
[2020-02-01] MEDS: MUPIROCIN 2% OINT 15gm or 22gm EACHNOSTRI SCH (09:41)
[2020-02-01] MEDS: METOPROLOL TARTRATE 50 MG TAB PO SCH (10:00)
[2020-02-01] MEDS: LISINOPRIL 20 MG TAB PO SCH (10:00)
== END 2020-02-01 11:35 | disposition left against medical advice (07) | DRG 291 ==
LOC: ER 05:19 → EDBD 05:19 → TELE 05:20 → TELE-WESTW 15:56
PROVIDERS: ADMIT Nurse Practitioner Family; ATTEND Family Medicine
DX: I11.0 Hypertensive heart disease with heart failure (principal); J96.20 Acute and chronic respiratory failure, unspecified whether with hypoxia or hypercapnia; I69.351 Hemiplegia and hemiparesis following cerebral infarction affecting right dominant side; I50.23 Acute on chronic systolic (congestive) heart failure; I25.10 Atherosclerotic heart disease of native coronary artery without angina pectoris; J44.9 Chronic obstructive pulmonary disease, unspecified; F15.10 Other stimulant abuse, uncomplicated; I34.0 Nonrheumatic mitral (valve) insufficiency; I16.0 Hypertensive urgency; I48.91 Unspecified atrial fibrillation; F41.9 Anxiety disorder, unspecified; F31.9 Bipolar disorder, unspecified; I25.5 Ischemic cardiomyopathy; E78.5 Hyperlipidemia, unspecified; F17.210 Nicotine dependence, cigarettes, uncomplicated; Z53.29 Procedure and treatment not carried out because of patient's decision for other reasons; Z91.19 Patient's noncompliance with other medical treatment and regimen; Z91.14 Patient's other noncompliance with medication regimen; Z59.0 Homelessness; Z82.49 Family history of ischemic heart disease and other diseases of the circulatory system; Z81.8 Family history of other mental and behavioral disorders; Z82.5 Family history of asthma and other chronic lower respiratory diseases; Z71.51 Drug abuse counseling and surveillance of drug abuser; Z95.810 Presence of automatic (implantable) cardiac defibrillator
CPT/HCPCS: 36415; 36600; 71045; 80053; 80307; 81001; 82805; 83735; 83880; 84484; 85025; 85379; 85610; 85730; 87081; 93005; 93926; 94640; 99291; G0378; J7060

== ENCOUNTER 2020-02-11 06:16 | Inpatient (IN) | payer MEDICARE, MEDICAID ==
[~2020-02-11] VITALS: Ht 167.6 cm; Wt 65.6 kg
[2020-02-11] MEDS ORDERED: SODIUM CHLORIDE 0.9% 1,000 ML IV ONE (08:00)
[2020-02-11 08:43] LABS: Magnesium 2.4 mg/dL (1.6-2.6); Potassium 3.2 mmol/L (3.5-5.1)
[2020-02-11 08:49] LABS: BUN/Creatinine Ratio 22.6; Total Protein 7.6 g/dL (6.4-8.2)
[2020-02-11 09:14] LABS: Basophils # (auto) 0.1 10 ^3/uL (0-0.2); Basophils % (auto) 0.8 % (0.0-2.0); Eosinophils # (auto) 0.2 10 ^3/uL (0-0.8); Eosinophils % (auto) 2.2 % (0.0-7.0); Hematocrit 47.9 % (41.0-53.0); Hemoglobin 16.1 g/dL (13.5-17.5); Lymphocytes # (auto) 1.4 10 ^3/uL (0.4-5.4); Lymphocytes % (auto) 17.7 % (10.0-50.0); Mean Corpuscular Hemoglobin 31.4 pg (28.0-32.0); Mean Corpuscular Hgb Conc. 33.6 g/dL (32.0-36.0); Mean Corpuscular Volume 93.5 fL (80.0-100.0); Monocytes # (auto) 0.6 10 ^3/uL (0-1.3); Monocytes % (auto) 7.4 % (0.0-12.0); Neutrophils # (auto) 5.6 10 ^3/uL (1.6-8.6); Neutrophils % (auto) 71.9 % (37.0-80.0); Nucleated Red Blood Cells % 0.3 %; Platelet Count (auto) 137 10^3/uL (140-450); Red Blood Cells 5.12 10^6/uL (4.5-5.90); Red Cell Distribution Width 14.3 % (11.8-14.3); White Blood Cell 7.8 10^3/uL (4.4-10.8)
[2020-02-11 09:30] LABS: INR 0.97 (0.9-1.15); Partial Thromboplastin Time 29.1 sec (23.0-31.2)
[2020-02-11 09:35] LABS: Urine Bacteria NONE SEEN /hpf (None Seen); Urine Blood Negative /uL (Negative); Urine Specific Gravity 1.013 (1.001-1.035); Urine WBC <1 /hpf (0 - 3)
[2020-02-11] MEDS ORDERED: SPIRONOLACTONE 25 MG TAB PO ONE (12:30)
[2020-02-11] MEDS ORDERED: FUROSEMIDE 40 MG/4 ML VIAL IV ONE (12:30)
[2020-02-11] MEDS ORDERED: POTASSIUM EFFERVESENT TAB 25 MEQ PO ONE (13:45)
[2020-02-11] MEDS ORDERED: hydrALAZINE HCL 20 MG/ML VL IV ONE (13:45)
[2020-02-11] MEDS ORDERED: NITROGLYCERIN 0.4 MG SL TAB SL PRN (14:45)
[2020-02-11] MEDS ORDERED: MORPHINE SULF INJ 2 MG/ML SYRINGE 1ML IV PRN ×2 (14:45→15:30)
[2020-02-11] MEDS ORDERED: ENALAPRILAT 1.25 MG/ML-1ML VIAL IV PRN (15:15)
[2020-02-11] MEDS ORDERED: TEMAZEPAM 15 MG CAP PO PRN (15:30)
[2020-02-11] MEDS ORDERED: traMADol HCL 50 MG TAB PO PRN (15:30)
[2020-02-11] MEDS ORDERED: PROMETHAZINE HCL 25 MG/ML 1ML IV PRN (15:30)
[2020-02-11] MEDS ORDERED: ALBUTEROL SULF 2.5 MG/0.5ML(0.5%) NEB SOLN NEB PRN (15:30)
[2020-02-11] MEDS ORDERED: ACETAMINOPHEN 500 MG TAB PO PRN (15:30)
[2020-02-11 15:34] VITALS: BP 152/104
[2020-02-11] MEDS ORDERED: DOCUSATE ORAL LIQUID 100 MG/10 ML UD PO PRN (15:45)
[2020-02-11] MEDS: IPRATROPIUM BROM 0.5 MG/2.5ML INH SOL NEB SCH (18:19)
[2020-02-11] MEDS: BUDESONIDE (INHALATION) 0.5 MG/2 ML NEB NEB SCH (18:19)
[2020-02-11] MEDS: ALBUTEROL SULF 2.5 MG/0.5ML(0.5%) NEB SOLN NEB SCH (18:19)
[2020-02-11] MEDS: SPIRONOLACTONE 25 MG TAB PO SCH (18:50)
[2020-02-11] MEDS: FUROSEMIDE 40 MG/4 ML VIAL IV SCH (18:50)
[2020-02-11 20:25] VITALS: BP 151/64
--- NOTE | 2020-02-11 20:45 | NUR ---
54Telemetry admit from [facility] admitted to Telemetry unit after SBAR received. Patient oriented to Óscar Lopez, primary RN, unit, room, bed, and unit policies regarding patient care and visiting hours. Patient now on continuous telemetry monitoring, tele box # [54] and telemetry reading on arrival to unit is [SR 86 WITH PVC]. Patient weighed by bedscale and encouraged to call if they need something. All questions and concerns addressed, patient verbalized understanding. Note: MRSA SWAB COLLECTED AND SENT. PATIENT EDUCATED ON POC AND ENCOURAGED PATIENT TO CALL FOR JUVENILE COUNSELOR IF NEEDED. BED IN LOWEST LOCKED POSITION WITH SIDE RAILS UP X 2. CALL REICH WITHIN REACH. ALARM ON. CONTINUE TO MONITOR FOR CHANGES Q1H AND PRN.
--- NOTE | 2020-02-11 21:58 | NUR ---
OUTPLACEMENT CONSULTANT AT BEDSIDE.
[2020-02-11 22:00] VITALS: BP 151/64
[2020-02-11] MEDS: ATORVASTATIN 20 MG TAB PO SCH (22:59)
[2020-02-11] MEDS: traZODone HCL 50 MG TAB PO SCH (22:59)
[2020-02-11] MEDS: METOPROLOL TARTRATE 50 MG TAB PO SCH (22:59)
--- NOTE | 2020-02-11 23:39 | NUR ---
PATIENT HAD 11 BEATS OF VT. CHECKED PATIENT, PATIENT SLEEPING, NO S/S OF DISTRESS NOTED. DENIED CHEST PAIN AND ANY CHEST DISCOMFORT, VITALS STABLE, HR 70, RR 18, BP 111/66, O2 SAT 97% ON RA. EKG BACK TO SR. WILL PASS IT TO DAY SHIFT RN TO DAY MD.. CONTINUE TO MONITOR.
[2020-02-12] MEDS: IPRATROPIUM BROM 0.5 MG/2.5ML INH SOL NEB SCH ×4 (00:38→19:02)
[2020-02-12] MEDS: ALBUTEROL SULF 2.5 MG/0.5ML(0.5%) NEB SOLN NEB SCH ×4 (00:38→19:02)
--- NOTE | 2020-02-12 04:52 | NUR ---
PATIENT SLEEPING. NO S/S OF DISTRESS NOTED. CONTINUE CARE
[2020-02-12 05:00] VITALS: BP 110/75
[2020-02-12] MEDS: BUDESONIDE (INHALATION) 0.5 MG/2 ML NEB NEB SCH ×2 (06:12→19:02)
[2020-02-12] MEDS: FUROSEMIDE 40 MG/4 ML VIAL IV SCH ×2 (06:48→17:28)
[2020-02-12] MEDS: SPIRONOLACTONE 25 MG TAB PO SCH ×2 (06:48→17:29)
--- NOTE | 2020-02-12 07:31 | NUR ---
Opening Shift Note Assumed care of patient, awake and alert. No S/S of distress/SOB or pain. Instructed on POC and to call for assist PRN. Patient verbalized understanding. Will continue to monitor for changes Q1hr and PRN.
[2020-02-12 09:00] VITALS: BP 114/78
[2020-02-12] MEDS: ASPirin-EC 81 mg tab PO SCH (09:37)
[2020-02-12] MEDS: CLOPIDOGREL BISULFATE 75 MG TAB PO SCH (09:37)
[2020-02-12] MEDS: POTASSIUM CHL 20 Meq TABLET PO SCH (09:37)
[2020-02-12] MEDS: LISINOPRIL 20 MG TAB PO SCH (09:38)
[2020-02-12] MEDS: METOPROLOL TARTRATE 50 MG TAB PO SCH ×2 (09:38→20:59)
[2020-02-12] MEDS ORDERED: ATORVASTATIN 20 MG TAB PO SCH (10:00)
[2020-02-12] MEDS ORDERED: NITROGLYCERIN 0.2MG/HR TOPICAL PATCH TD SCH (10:00)
[2020-02-12] MEDS ORDERED: ENOXAPARIN SOD 40 MG/0.4 ML SYRINGE SC SCH (10:00)
[2020-02-12 10:30] LABS: Potassium 3.4 mmol/L (3.5-5.1)
[2020-02-12 10:40] LABS: Albumin 3.2 g/dL (3.4-5.0); BUN/Creatinine Ratio 19.6; Bilirubin, Total 1.2 mg/dL (0.2-1.0); Calcium 8.4 mg/dL (8.5-10.1); Total Protein 6.4 g/dL (6.4-8.2)
[2020-02-12 13:00] VITALS: BP 125/86
--- NOTE | 2020-02-12 13:01 | NUR ---
JON RODRIGUEZ states they want to leave the floor Against Medical Advice (AMA) to go outside and smoke. Patient encouraged to stay on floor and not smoke. Dr WILCOX notified of patient's wishes. Patient advised of the risks and benefits of leaving AMA. Patient verbalized understanding and signed required AMA form.
--- NOTE | 2020-02-12 14:46 | NUR ---
Assessment Social service consult regarding patient being homeless. Patient states prior to admission he lived in [facility] in his tent. Discussed with patient options and resources for placement. Provided information to clothes closet and meal prior to discharge. Patient accepted resource from [facility]. Patient stated he will return to his tent upon discharge. Offered patient taxi voucher within 30 miles and patient agreed. Completed home less assessment and patient signed homeless waiver. Will follow-up and provide intervention as appropriate. Informed LINDA Traore. Addendum: 02/12/20 at 1449 by TYLER HU Amended: Links added.
--- NOTE | 2020-02-12 16:48 | NUR ---
JON RODRIGUEZ states they want to leave the floor Against Medical Advice (AMA) to go outside and smoke. Patient encouraged to stay on floor and not smoke. Patient advised of the risks and benefits of leaving AMA. Patient verbalized understanding and signed required AMA form.
[2020-02-12 17:00] VITALS: BP 111/77
--- NOTE | 2020-02-12 18:01 | NUR ---
IV removal IV DC'd with clean sterile technique, catheter fully intact. Pressure dressing applied to site. Patient tolerated well.
--- NOTE | 2020-02-12 18:01 | NUR ---
IV insertion IV access obtained, via clean sterile technique by inserting 22 gauge catheter at RIGHT FOREARM after 1 attempt(s). IV secured properly. No trauma to site. Patient tolerated well.
--- NOTE | 2020-02-12 19:40 | NUR ---
Opening Shift Note Assumed care of patient, awake and alert, oriented x 4, follows direction. No S/S of distress/SOB or pain. Patient turns independently in bed, uses urinal independently. Bed in low locked position with side rails up x 2 and call light within reach. Instructed on POC and to call for assist PRN, will continue to monitor for changes Q1hr and PRN.
[2020-02-12] MEDS: traZODone HCL 50 MG TAB PO SCH (20:58)
[2020-02-12] MEDS: ATORVASTATIN 20 MG TAB PO SCH (20:58)
[2020-02-12 22:00] VITALS: BP 138/111
[2020-02-13] MEDS: IPRATROPIUM BROM 0.5 MG/2.5ML INH SOL NEB SCH ×3 (00:20→11:31)
[2020-02-13] MEDS: ALBUTEROL SULF 2.5 MG/0.5ML(0.5%) NEB SOLN NEB SCH ×3 (00:20→11:31)
[2020-02-13 05:08] VITALS: BP 142/92
[2020-02-13] MEDS: SPIRONOLACTONE 25 MG TAB PO SCH (05:30)
[2020-02-13] MEDS: FUROSEMIDE 40 MG/4 ML VIAL IV SCH (05:30)
[2020-02-13] MEDS: BUDESONIDE (INHALATION) 0.5 MG/2 ML NEB NEB SCH (06:10)
--- NOTE | 2020-02-13 06:56 | NUR ---
Closing Note patient resting in bed with oxygen on even and unlabored respirations, no s/s of distress or SOB. Bed in low locked position with side rails up x 2 and call light within reach.
[2020-02-13 09:00] VITALS: BP 149/94
[2020-02-13] MEDS: POTASSIUM CHL 20 Meq TABLET PO SCH (10:24)
[2020-02-13] MEDS: CLOPIDOGREL BISULFATE 75 MG TAB PO SCH (10:24)
[2020-02-13] MEDS: ASPirin-EC 81 mg tab PO SCH (10:24)
[2020-02-13] MEDS: METOPROLOL TARTRATE 50 MG TAB PO SCH (10:24)
[2020-02-13] MEDS: LISINOPRIL 20 MG TAB PO SCH (10:25)
--- NOTE | 2020-02-13 11:32 | NUR ---
D/C Planning Per social service for homeless requesting homeless shelters. Spoke to patient this morning regarding homeless residential. Patient stated he will return to his tent and refused to speak to me after that. Informed bedside nurse.
[2020-02-13 13:00] VITALS: BP 108/83
--- NOTE | 2020-02-13 14:17 | NUR ---
DISCHARGE PATIENT DISCHARGED TO HOME. PATIENT REFUSED HOMELESS SERVICES OFFERED BY NURSE ADVISOR AND REQUESTED TO D/C HOME TO [facility]. DR. YI GANT ATTEMPTED TO FILL PRESCRIPTIONS FOR PATIENT BEFORE DISCHARGE, BUT PATIENT DECLINED STATING HE NEEDS TO LEAVE NOW. PATIENT LEFT UNIT WITH ALL PERSONAL BELONGINGS, DISCHARGE PAPERWORK, AND PRESCRIPTION SCRIPTS. DISCHARGE INSTRUCTIONS PROVIDED TO PATIENT, ALL QUESTIONS/CONCERNS ADDRESSED, PATIENT VERBALIZED UNDERSTANDING. PATIENT IS SATURATING 95% ON RA. PATIENT PROVIDED WITH TAXI, CLOTHES, AND FOOD FOR DISCHARGE HOME.
== END 2020-02-13 14:20 | disposition home or self-care (01) | DRG 291 ==
LOC: EDBD 06:16 → ER 06:16 → TELE 06:17 → TELE-WESTW 20:23
PROVIDERS: ADMIT Internal Medicine; ATTEND Internal Medicine
DX: I13.0 Hypertensive heart and chronic kidney disease with heart failure and stage 1 through stage 4 chronic kidney disease, or unspecified chronic kidney disease (principal); I50.23 Acute on chronic systolic (congestive) heart failure; J96.00 Acute respiratory failure, unspecified whether with hypoxia or hypercapnia; N17.9 Acute kidney failure, unspecified; N18.30 Chronic kidney disease, stage 3 unspecified; E87.6 Hypokalemia; J44.9 Chronic obstructive pulmonary disease, unspecified; E78.5 Hyperlipidemia, unspecified; Z95.0 Presence of cardiac pacemaker; E03.9 Hypothyroidism, unspecified; I25.10 Atherosclerotic heart disease of native coronary artery without angina pectoris; Z20.828 Contact with and (suspected) exposure to other viral communicable diseases; Z59.0 Homelessness; F41.9 Anxiety disorder, unspecified; Z91.14 Patient's other noncompliance with medication regimen; Z72.0 Tobacco use
CPT/HCPCS: 36415; 71045; 80053; 81001; 83735; 83880; 84443; 84484; 85025; 85610; 85730; 87040; 87081; 87426; 93005; 94640; G0378

== ENCOUNTER 2020-02-26 08:07 | Inpatient (IN) | payer MEDICARE, MEDICAID ==
[~2020-02-26] VITALS: Ht 167.6 cm; Wt 63.3 kg
[2020-02-26] MEDS ORDERED: FUROSEMIDE 40 MG/4 ML VIAL IV ONE (08:30)
[2020-02-26 09:20] LABS: Basophils # (auto) 0.1 10 ^3/uL (0-0.2); Basophils % (auto) 0.8 % (0.0-2.0); Eosinophils # (auto) 0.1 10 ^3/uL (0-0.8); Eosinophils % (auto) 0.9 % (0.0-7.0); Hematocrit 46.9 % (41.0-53.0); Hemoglobin 15.7 g/dL (13.5-17.5); Lymphocytes # (auto) 1.1 10 ^3/uL (0.4-5.4); Lymphocytes % (auto) 12.5 % (10.0-50.0); Mean Corpuscular Hemoglobin 31.1 pg (28.0-32.0); Mean Corpuscular Hgb Conc. 33.5 g/dL (32.0-36.0); Mean Corpuscular Volume 92.8 fL (80.0-100.0); Monocytes # (auto) 0.7 10 ^3/uL (0-1.3); Monocytes % (auto) 8.7 % (0.0-12.0); Neutrophils # (auto) 6.6 10 ^3/uL (1.6-8.6); Neutrophils % (auto) 77.1 % (37.0-80.0); Nucleated Red Blood Cells % 0.3 %; Platelet Count (auto) 160 10^3/uL (140-450); Red Blood Cells 5.05 10^6/uL (4.5-5.90); Red Cell Distribution Width 14.6 % (11.8-14.3); White Blood Cell 8.6 10^3/uL (4.4-10.8)
[2020-02-26 09:38] LABS: Albumin 3.5 g/dL (3.4-5.0); Calcium 8.6 mg/dL (8.5-10.1); Potassium 3.7 mmol/L (3.5-5.1)
[2020-02-26 09:38] LABS: Urine Bacteria NONE SEEN /hpf (None Seen); Urine Blood Negative /uL (Negative); Urine Hyaline Cast FEW /lpf (0 - 2); Urine Specific Gravity 1.013 (1.001-1.035); Urine WBC <1 /hpf (0 - 3)
[2020-02-26 09:43] LABS: BUN/Creatinine Ratio 15.5; Bilirubin, Total 0.9 mg/dL (0.2-1.0); Total Protein 6.8 g/dL (6.4-8.2)
[2020-02-26 11:12] LABS: Alcohol, Urine < 3.0 mg/dL (0-10); Amphetamine Screen, Urine NEGATIVE (NEGATIVE); Barbiturate Scree,Urine NEGATIVE (NEGATIVE); Benzodiazephine Screen, Urine NEGATIVE (NEGATIVE); Cannabinoid Screen, Urine NEGATIVE (NEGATIVE); Cocaine Screen, Urine NEGATIVE (NEGATIVE); Opiate Scree,Urine NEGATIVE (NEGATIVE); Phencyclidine Screen, Urine NEGATIVE (NEGATIVE)
[2020-02-26] MEDS ORDERED: LABETALOL HCL 5 MG/ML 4ML SYRINGE IV PRN (16:15)
[2020-02-26] MEDS ORDERED: MORPHINE SULF INJ 2 MG/ML SYRINGE 1ML IV PRN ×2 (16:15)
[2020-02-26] MEDS ORDERED: ONDANSETRON HCL 4 MG/2 ML VIAL IV PRN (16:15)
[2020-02-26] MEDS ORDERED: NITROGLYCERIN 0.4 MG SL TAB SL PRN (16:15)
[2020-02-26] MEDS ORDERED: ACETAMINOPHEN 500 MG TAB PO PRN (16:15)
[2020-02-26] MEDS: SPIRONOLACTONE 25 MG TAB PO SCH (18:16)
--- NOTE | 2020-02-26 19:35 | NUR ---
Telemetry admit from ER JON RODRIGUEZ admitted to Telemetry unit after SBAR received. Patient oriented to Harriet Mcdermott, primary RN, unit, room, bed, and unit policies regarding patient care and visiting hours. Patient now on continuous telemetry monitoring, tele box # 35 and telemetry reading on arrival to unit is Afib. Patient placed on bedside oxygen, weighed by bedscale and encouraged to call if they need something. All questions and concerns addressed, patient verbalized understanding.
[2020-02-26 20:00] VITALS: BP 157/101
--- NOTE | 2020-02-26 20:30 | NUR ---
Patient was discharged from [facility] on 02/13/20, per hospital protocol MRSA swab needs to be done. Patient started to get upset and agitated and states "go look on my previous records and don't invade my personal thing. I'm tired of being poked and and swabbed I don't need it anymore." RN explained that every time a patient is admitted within the last 30 days from last discharged, MRSA needs to be done. Still patient is upset and refusing the MRSA swab.
--- NOTE | 2020-02-26 21:45 | NUR ---
Patient is sleeping, RN is trying to wake up the patient for 2200 medication and pain medication. Patient is answering but refusing to sit up and open his eyes. He started to get upset again and saying "get out of my f---ing face" repeatedly with eyes closed, eventually opening his eyes. Patient is being difficult, uncooperative and verbally abusive. Primary RN and RN shweta Pham is explaining and educating the importance of taking the medications, still patient is refusing threatening to call a wire charger and filling a lawsuit. Finally after minutes of talking to the patient, he took the medications half-heartedly.
[2020-02-26] MEDS: traZODone HCL 50 MG TAB PO SCH (21:48)
[2020-02-26] MEDS: ATORVASTATIN 20 MG TAB PO SCH (21:49)
[2020-02-26] MEDS: HYDROcodone-ACET 5/325MG TAB PO PRN (21:49)
[2020-02-26] MEDS: METOPROLOL TARTRATE 50 MG TAB PO SCH (21:50)
[2020-02-26 22:00] VITALS: BP 157/101
--- NOTE | 2020-02-26 23:00 | NUR ---
Patient refused to be reassessed for his pain levels and his blood pressure
--- NOTE | 2020-02-27 01:20 | NUR ---
Patient complained of feeling SOB. His O2 sat was at 97 but still felt like he couldn't "catch his breath". Put him on 2 L nasal cannula with HOB at 30 degrees. Pt states he feels better.
[2020-02-27] MEDS: SPIRONOLACTONE 25 MG TAB PO SCH ×2 (06:30→17:46)
[2020-02-27 06:36] VITALS: BP 130/69
--- NOTE | 2020-02-27 07:28 | NUR ---
Opening Shift Note Assumed care of patient, asleep in bed. No S/S of distress/SOB or pain. Fall precautions in place and call light within reach. Will continue to monitor for changes Q1hr and PRN.
[2020-02-27] MEDS ORDERED: FUROSEMIDE 40 MG/4 ML VIAL IV ONE (08:45)
[2020-02-27] MEDS ORDERED: POTASSIUM CHL 20 Meq TABLET PO ONE (08:45)
--- NOTE | 2020-02-27 09:10 | NUR ---
PT refused VS Pt refused VS check. Educated on need to check VS. PT still refusing.
--- NOTE | 2020-02-27 09:29 | NUR ---
MD was at bedside - Dr. Janet Funes RN and Ean RN were at bedside. POC discussed. Notified MD that patient refused VS. MD verbalized understanding. MD spoke to patient. Patient agreeing to have VS assessed.
[2020-02-27] MEDS: FAMOTIDINE 20 MG TAB PO SCH (09:47)
[2020-02-27] MEDS: CLOPIDOGREL BISULFATE 75 MG TAB PO SCH (09:48)
[2020-02-27] MEDS: ASPirin-EC 81 mg tab PO SCH (09:48)
[2020-02-27] MEDS: MULTIPLE VITAMIN TAB PO SCH (09:48)
[2020-02-27] MEDS: METOPROLOL TARTRATE 50 MG TAB PO SCH ×2 (09:48→22:14)
[2020-02-27] MEDS ORDERED: FUROSEMIDE 20 MG TAB PO SCH (10:00)
[2020-02-27] MEDS ORDERED: POTASSIUM CHL 10 Meq TABLET PO SCH (10:00)
[2020-02-27] MEDS ORDERED: LISINOPRIL 20 MG TAB PO SCH (10:00)
[2020-02-27 13:00] VITALS: BP 138/73
--- NOTE | 2020-02-27 14:03 | NUR ---
RE: COVID swab collected COVID19 swab collected and walked down to lab per protocol.
--- NOTE | 2020-02-27 14:10 | NUR ---
Pt is an alert and oriented male that is able to communicate and make needs known. Pt uses a forarm crutch due to "broken" leg that did not heal properly and as a result he does not walk well. Pt states he was residing in a board and care and got "kicked out". Pt states he does not know if he receives an income. Reminded pt that he is medicare and medi-nick and should be receiving SS. Pt the changed and said yes he does have an income but he does not know the amount and does not have a card. Pt stated he had an account at [employer] and has to go in to the [employer] to obtain money but doesn't have any now. Advised pt of local homeless [facility]p but that pt would have to participate in chores. Pt states does not want to there because they are always full. Pt requesting SNF placement for physical therapy. Advised pt that I can speak with MD if there is a physical therapy need but that he would still need a destination upon discharge from that facility also. Pt verbalized wanting to go to another room and board but I informed pt the facility would want to be paid. Pt states he will contact his bank and obtain a balance and monthly amount. Will follow up again on today. Addendum: 02/27/20 at 1419 by LUZ ANDRADE Amended: Links added.
--- NOTE | 2020-02-27 14:54 | NUR ---
Patient requesting to leave unit to smoke Smoking cessation education provided to patient. Patient stated "I've been smoking since I was 13 years old. I'm not about to quit over night." Safety and fall precautions provided to the patient. Patient verbalized understanding.
[2020-02-27] MEDS: FUROSEMIDE 40 MG/4 ML VIAL IV SCH ×2 (15:39→22:14)
[2020-02-27 17:00] VITALS: BP 127/77
--- NOTE | 2020-02-27 18:30 | NUR ---
RE: breathing Patient ambulated to nursing station on room air requesting a snack. Patient had noted dyspnea when returning to bed. Patient placed back on 2 LPM NC. Instructed patient to remain on supplemental oxygen. Patient verbalized understanding.
--- NOTE | 2020-02-27 19:21 | NUR ---
closing note Pt resting in bed. No s/s of distress, SOB or pain. Fall precautions in place and call light within reach.
--- NOTE | 2020-02-27 19:22 | NUR ---
Care endorsed to Elin MCKEON.
--- NOTE | 2020-02-27 19:40 | NUR ---
Opening Shift Note Assumed care of patient, awake and alert. No S/S of distress/SOB. Instructed on POC and to call for assist PRN, will continue to monitor for changes Q1hr and PRN. Bed at lowest setting.
[2020-02-27 22:00] VITALS: BP 124/78
[2020-02-27] MEDS: HYDROcodone-ACET 5/325MG TAB PO PRN (22:13)
[2020-02-27] MEDS: traZODone HCL 50 MG TAB PO SCH (22:13)
[2020-02-27] MEDS: ATORVASTATIN 20 MG TAB PO SCH (22:14)
[2020-02-28] VITALS (7 sets, daily range): BP systolic 121–136; BP diastolic 71–92
[2020-02-28] MEDS: FUROSEMIDE 40 MG/4 ML VIAL IV SCH ×3 (06:03→21:32)
[2020-02-28] MEDS: SPIRONOLACTONE 25 MG TAB PO SCH ×2 (06:04→17:38)
--- NOTE | 2020-02-28 08:00 | NUR ---
Opening Shift Note Assumed care of patient, awake and alert. No S/S of distress/SOB. Instructed on POC and to call for assist PRN, will continue to monitor for changes Q1hr and PRN. Bed at lowest setting and call light within reach.
[2020-02-28] MEDS: ASPirin-EC 81 mg tab PO SCH (09:44)
[2020-02-28] MEDS: MULTIPLE VITAMIN TAB PO SCH (09:45)
[2020-02-28] MEDS: FAMOTIDINE 20 MG TAB PO SCH (09:46)
[2020-02-28] MEDS: CLOPIDOGREL BISULFATE 75 MG TAB PO SCH (09:46)
[2020-02-28] MEDS: METOPROLOL TARTRATE 50 MG TAB PO SCH ×2 (09:46→21:33)
[2020-02-28 09:47] LABS: BUN/Creatinine Ratio 22.4; Calcium 8.9 mg/dL (8.5-10.1); Magnesium 2.3 mg/dL (1.6-2.6); Potassium 3.7 mmol/L (3.5-5.1)
--- NOTE | 2020-02-28 14:37 | NUR ---
D/C Planning Per social service consult for SNF placement. Information and choice letter was given to patient. Patient requested [facility]. Faxed clinical information to facility. Per Ryan with [facility] patient has been accepted and will assign a bed upon discharge day. Transportation will be arranged upon d/c day.
--- NOTE | 2020-02-28 17:10 | NUR ---
Patient went down for some fresh air.
--- NOTE | 2020-02-28 19:20 | NUR ---
CLOSING SHIFT NOTE PATIENT IS COMFORTABLY RESTING IN BED, BREATH SOUNDS EVEN AND UNLABORED. NO S/S OF DISTRESS/SOB NOTED/STATED. BED AT LOWEST LOCKED POSITION AND CALL LIGHT WITHIN REACH. CARE ENDORSED TO NOC LINDA MIJARES
--- NOTE | 2020-02-28 19:25 | NUR ---
Opening note Assumed care of patient, patient is alert and orientated x4. no sob or distress noted. Bed is locked in lowest position, side rails up x2. Patient has no pain. POC reviewed. Will continue to monitor q1hr and PRN.
[2020-02-28] MEDS: traZODone HCL 50 MG TAB PO SCH (21:32)
[2020-02-28] MEDS: ATORVASTATIN 20 MG TAB PO SCH (21:32)
[2020-02-28] MEDS: SACUBITRIL-VALSARTAN 24mg/26mg TAB PO SCH (21:32)
[2020-02-29 05:00] VITALS: BP 131/82
[2020-02-29] MEDS: SPIRONOLACTONE 25 MG TAB PO SCH (05:53)
[2020-02-29] MEDS: FUROSEMIDE 40 MG/4 ML VIAL IV SCH (05:53)
--- NOTE | 2020-02-29 07:24 | NUR ---
Closing note Endorsed care to day shift RN NO SOB or distress noted.
[2020-02-29 08:00] VITALS: BP 94/57
[2020-02-29 08:34] VITALS: BP 94/57
[2020-02-29] MEDS: ASPirin-EC 81 mg tab PO SCH (09:01)
[2020-02-29] MEDS: SACUBITRIL-VALSARTAN 24mg/26mg TAB PO SCH (09:01)
[2020-02-29] MEDS: MULTIPLE VITAMIN TAB PO SCH (09:02)
[2020-02-29] MEDS: CLOPIDOGREL BISULFATE 75 MG TAB PO SCH (09:03)
[2020-02-29] MEDS: FAMOTIDINE 20 MG TAB PO SCH (09:03)
[2020-02-29] MEDS: METOPROLOL TARTRATE 50 MG TAB PO SCH (10:00)
--- NOTE | 2020-02-29 10:00 | NUR ---
Dr. Gonzales at bedside, per MD patient will be going home today.
--- NOTE | 2020-02-29 14:00 | NUR ---
D/C planning Placed follow up called to [facility] spoke to Charmaine . Advised Charmaine patient is ready to discharge. Per Charmaine patient will be going to room 404 bed 2 accepting Md, Dr. Gonzales. Transportation has been arranged with [facility] transportation between 4-5pm. Informed LINDA Mcclelland.
[2020-02-29 14:03] VITALS: BP 102/64
--- NOTE | 2020-02-29 14:41 | NUR ---
Report called in to [facility] Report given to Doris MCKEON, patient is to go to room 404, bed 2 with admitting MD, Janet. Unable to contact NOK, patient sates, "i have no family". Patient has been informed.
[2020-02-29 16:57] VITALS: BP 147/92
--- NOTE | 2020-02-29 16:57 | NUR ---
Discharge instructions given as ordered. All questions and concerns addressed. Patient verbalized understanding. IV removed with catheter intact, pressure dressing applied. Medication reconciliation form completed and copy given to patient. Telemetry unit returned to ICU. Report given to Doris MCKEON at [facility]. Patient transported by [facility] with all personal belongings. No distress noted at time of departure.
== END 2020-02-29 17:12 | DRG 292 ==
LOC: EDBD 08:07 → EDSEX 08:07 → ER 08:07 → TELE 08:08 → TELE-CENTR 19:35
PROVIDERS: ADMIT Nurse Practitioner Acute Care; ATTEND Internal Medicine
DX: I11.0 Hypertensive heart disease with heart failure (principal); I16.9 Hypertensive crisis, unspecified; I50.23 Acute on chronic systolic (congestive) heart failure; J44.9 Chronic obstructive pulmonary disease, unspecified; F15.10 Other stimulant abuse, uncomplicated; F41.9 Anxiety disorder, unspecified; F19.10 Other psychoactive substance abuse, uncomplicated; Z20.828 Contact with and (suspected) exposure to other viral communicable diseases; I25.10 Atherosclerotic heart disease of native coronary artery without angina pectoris; Z59.0 Homelessness; Z71.6 Tobacco abuse counseling; Z79.02 Long term (current) use of antithrombotics/antiplatelets; Z79.51 Long term (current) use of inhaled steroids; Z72.0 Tobacco use; Z79.899 Other long term (current) drug therapy; Z81.8 Family history of other mental and behavioral disorders; Z82.49 Family history of ischemic heart disease and other diseases of the circulatory system; Z82.5 Family history of asthma and other chronic lower respiratory diseases; Z95.810 Presence of automatic (implantable) cardiac defibrillator; Z91.14 Patient's other noncompliance with medication regimen
CPT/HCPCS: 36415; 71045; 80048; 80053; 80307; 81001; 83735; 83880; 84484; 85025; 93005; 97116; 97163; 97530; G0378; J3490

== ENCOUNTER 2020-03-07 20:19 | Inpatient (IN) | payer MEDICARE, MEDICAID ==
[~2020-03-07] VITALS: Ht 167.6 cm; Wt 61.2 kg
[2020-03-07 21:45] LABS: Basophils # (auto) 0 10 ^3/uL (0-0.2); Basophils % (auto) 0.7 % (0.0-2.0); Eosinophils # (auto) 0.1 10 ^3/uL (0-0.8); Eosinophils % (auto) 1.1 % (0.0-7.0); Hematocrit 45.3 % (41.0-53.0); Hemoglobin 15.6 g/dL (13.5-17.5); Lymphocytes # (auto) 1.5 10 ^3/uL (0.4-5.4); Lymphocytes % (auto) 20.9 % (10.0-50.0); Mean Corpuscular Hemoglobin 32.4 pg (28.0-32.0); Mean Corpuscular Hgb Conc. 34.4 g/dL (32.0-36.0); Mean Corpuscular Volume 94.2 fL (80.0-100.0); Monocytes # (auto) 0.9 10 ^3/uL (0-1.3); Monocytes % (auto) 12.9 % (0.0-12.0); Neutrophils # (auto) 4.5 10 ^3/uL (1.6-8.6); Neutrophils % (auto) 64.4 % (37.0-80.0); Nucleated Red Blood Cells % 0.1 %; Platelet Count (auto) 112 10^3/uL (140-450); Red Blood Cells 4.81 10^6/uL (4.5-5.90); Red Cell Distribution Width 14.5 % (11.8-14.3)
[2020-03-07 21:55] LABS: Albumin 3.9 g/dL (3.4-5.0); Calcium 8.9 mg/dL (8.5-10.1); Potassium 4.5 mmol/L (3.5-5.1)
[2020-03-07 22:05] LABS: BUN/Creatinine Ratio 23.6; Bilirubin, Total 1.5 mg/dL (0.2-1.0); Total Protein 7.1 g/dL (6.4-8.2)
[2020-03-07] MEDS ORDERED: FUROSEMIDE 20 MG/2 ML VIAL IV ONE (23:00)
[2020-03-07 23:51] LABS: Urine Bacteria FEW /hpf (None Seen); Urine Blood Negative /uL (Negative); Urine Hyaline Cast MANY /lpf (0 - 2); Urine Mucus FEW (None Seen); Urine WBC 1 /hpf (0 - 3)
[2020-03-08 00:06] LABS: Alcohol, Urine < 3.0 mg/dL (0-10); Amphetamine Screen, Urine POSITIVE (NEGATIVE); Barbiturate Scree,Urine NEGATIVE (NEGATIVE); Benzodiazephine Screen, Urine NEGATIVE (NEGATIVE); Cannabinoid Screen, Urine POSITIVE (NEGATIVE); Cocaine Screen, Urine NEGATIVE (NEGATIVE); Opiate Scree,Urine NEGATIVE (NEGATIVE); Phencyclidine Screen, Urine NEGATIVE (NEGATIVE)
[2020-03-08] MEDS ORDERED: ONDANSETRON HCL 4 MG/2 ML VIAL IV PRN (00:30)
[2020-03-08] MEDS ORDERED: ACETAMINOPHEN 325 MG TAB PO PRN (00:30)
[2020-03-08] MEDS ORDERED: NITROGLYCERIN 0.4 MG SL TAB SL PRN (00:30)
[2020-03-08] MEDS ORDERED: MORPHINE SULF INJ 2 MG/ML SYRINGE 1ML IV PRN (00:30)
[2020-03-08] MEDS ORDERED: MORPHINE SULFATE 4 MG/ML SYR/VIAL IV PRN (00:30)
[2020-03-08] MEDS ORDERED: DOCUSATE SOD 100 MG CAP PO PRN (00:30)
[2020-03-08] MEDS ORDERED: HYDROcodone-ACET 5/325MG TAB PO PRN (00:30)
[2020-03-08 02:00] VITALS: BP 152/103
[2020-03-08] MEDS ORDERED: INFLUENZA QUAD 2020-2021 0.5 ML SYRG IM ONE ×2 (03:45→06:15)
[2020-03-08 05:00] VITALS: BP 144/78
[2020-03-08] MEDS ORDERED: SODIUM CHLOR 0.9% PF (SALINE LOCK) 10ML VIAL/SYR IV SCH (06:00)
[2020-03-08 08:00] VITALS: BP 142/88
[2020-03-08 09:17] VITALS: BP 142/88
[2020-03-08] MEDS ORDERED: ZINC SULFATE 220mg CAP or TAB PO SCH (10:00)
[2020-03-08] MEDS ORDERED: ASCORBIC ACID 500 MG TAB PO SCH (10:00)
[2020-03-08] MEDS ORDERED: CLOPIDOGREL BISULFATE 75 MG TAB PO SCH (10:00)
[2020-03-08] MEDS ORDERED: ASPirin-EC 81 mg tab PO SCH (10:00)
[2020-03-08] MEDS ORDERED: LISINOPRIL 20 MG TAB PO SCH (10:00)
[2020-03-08] MEDS ORDERED: MULTIPLE VITAMIN TAB PO SCH (10:00)
[2020-03-08] MEDS ORDERED: FUROSEMIDE 40 MG/4 ML VIAL IV SCH (10:00)
[2020-03-08] MEDS ORDERED: ATORVASTATIN 20 MG TAB PO SCH (10:00)
[2020-03-08] MEDS ORDERED: FAMOTIDINE 20 MG TAB PO SCH (10:00)
[2020-03-08] MEDS ORDERED: BUDESONIDE (INHALATION) 0.5 MG/2 ML NEB HHN SCH (10:00)
[2020-03-08] MEDS ORDERED: METOPROLOL TARTRATE 50 MG TAB PO SCH (10:00)
== END 2020-03-08 10:15 | disposition left against medical advice (07) | DRG 291 ==
LOC: EDBD 20:19 → ER 20:19 → UNDOADMIN 20:20 → TELE 20:20 → TELE-EAST 20:21
PROVIDERS: ADMIT Nurse Practitioner Family; ATTEND Internal Medicine
DX: I13.0 Hypertensive heart and chronic kidney disease with heart failure and stage 1 through stage 4 chronic kidney disease, or unspecified chronic kidney disease (principal); I50.23 Acute on chronic systolic (congestive) heart failure; J44.1 Chronic obstructive pulmonary disease with (acute) exacerbation; I42.9 Cardiomyopathy, unspecified; F41.9 Anxiety disorder, unspecified; N18.9 Chronic kidney disease, unspecified; Z20.828 Contact with and (suspected) exposure to other viral communicable diseases; Z53.29 Procedure and treatment not carried out because of patient's decision for other reasons; E78.5 Hyperlipidemia, unspecified; G93.89 Other specified disorders of brain; I25.2 Old myocardial infarction; Z59.0 Homelessness; Z81.8 Family history of other mental and behavioral disorders; Z82.49 Family history of ischemic heart disease and other diseases of the circulatory system; Z82.5 Family history of asthma and other chronic lower respiratory diseases; Z87.891 Personal history of nicotine dependence; Z95.0 Presence of cardiac pacemaker; R77.8 Other specified abnormalities of plasma proteins
CPT/HCPCS: 36415; 70450; 71045; 72125; 80053; 80307; 81001; 83880; 84484; 85025; 87081; 87426; 93005; 96374; G0378

== ENCOUNTER 2020-03-24 20:19 | Emergency (ER) | payer MEDICARE, MEDICAID ==
[~2020-03-24] VITALS: Ht 170.2 cm; Wt 72.6 kg
[~2020-03-24 20:19] MED LIST changes: -SPIR25TA88 PO
[2020-03-24 22:00] VITALS: BP 148/102
== END 2020-03-25 00:07 | disposition home or self-care (01) ==
LOC: EDBD 20:19 → ER 20:26
DX: S82.141A Displaced bicondylar fracture of right tibia, initial encounter for closed fracture (principal); M79.89 Other specified soft tissue disorders; I13.0 Hypertensive heart and chronic kidney disease with heart failure and stage 1 through stage 4 chronic kidney disease, or unspecified chronic kidney disease; I50.9 Heart failure, unspecified; N18.9 Chronic kidney disease, unspecified; E78.5 Hyperlipidemia, unspecified; J44.9 Chronic obstructive pulmonary disease, unspecified; Z79.899 Other long term (current) drug therapy; Z87.891 Personal history of nicotine dependence; V09.9XXA Pedestrian injured in unspecified transport accident, initial encounter; Y93.89 Activity, other specified; Y92.89 Other specified places as the place of occurrence of the external cause; Y99.8 Other external cause status
CPT/HCPCS: 29505; 73590

== ENCOUNTER 2020-03-25 22:00 | Emergency (ER) | payer MEDICARE, MEDICAID ==
[~2020-03-25] VITALS: Ht 172.7 cm; Wt 72.6 kg
[2020-03-25] MEDS ORDERED: ALBUTEROL SULF 2.5 MG/0.5ML(0.5%) NEB SOLN HHN ONE (22:15)
[2020-03-25] MEDS ORDERED: methylPREDNISolone SOD SUCC 125 MG/2 ML VL IV ONE (22:15)
[2020-03-25] MEDS ORDERED: IPRATROPIUM BROM 0.5 MG/2.5ML INH SOL HHN ONE (22:15)
[2020-03-26 00:39] LABS: Basophils # (auto) 0 10 ^3/uL (0-0.2); Basophils % (auto) 0.7 % (0.0-2.0); Eosinophils # (auto) 0.4 10 ^3/uL (0-0.8); Eosinophils % (auto) 5.6 % (0.0-7.0); Hematocrit 44.8 % (41.0-53.0); Hemoglobin 15.3 g/dL (13.5-17.5); Lymphocytes # (auto) 2.8 10 ^3/uL (0.4-5.4); Lymphocytes % (auto) 40.6 % (10.0-50.0); Mean Corpuscular Hemoglobin 31.4 pg (28.0-32.0); Mean Corpuscular Volume 92.2 fL (80.0-100.0); Monocytes # (auto) 0.9 10 ^3/uL (0-1.3); Neutrophils # (auto) 2.8 10 ^3/uL (1.6-8.6); Neutrophils % (auto) 40.1 % (37.0-80.0); Nucleated Red Blood Cells % 0.1 %; Platelet Count (auto) 191 10^3/uL (140-450); Red Blood Cells 4.86 10^6/uL (4.5-5.90); Red Cell Distribution Width 14.1 % (11.8-14.3); White Blood Cell 6.9 10^3/uL (4.4-10.8)
[2020-03-26 01:00] LABS: Albumin 3.6 g/dL (3.4-5.0); Calcium 9.4 mg/dL (8.5-10.1); Magnesium 2.2 mg/dL (1.6-2.6); Potassium 3.9 mmol/L (3.5-5.1)
[2020-03-26 01:05] LABS: Bilirubin, Total 0.6 mg/dL (0.2-1.0); Total Protein 7.5 g/dL (6.4-8.2)
[2020-03-26 02:30] VITALS: BP 159/62
== END 2020-03-26 05:50 | disposition home or self-care (01) ==
LOC: EDBD 22:00 → ER 22:08
DX: J44.1 Chronic obstructive pulmonary disease with (acute) exacerbation (principal); I13.0 Hypertensive heart and chronic kidney disease with heart failure and stage 1 through stage 4 chronic kidney disease, or unspecified chronic kidney disease; N18.9 Chronic kidney disease, unspecified; I50.9 Heart failure, unspecified; E78.5 Hyperlipidemia, unspecified; I25.2 Old myocardial infarction; Z87.891 Personal history of nicotine dependence; Z20.828 Contact with and (suspected) exposure to other viral communicable diseases; Z59.0 Homelessness
CPT/HCPCS: 36415; 36600; 71045; 80053; 82805; 83735; 83880; 84484; 85025; 85379; 87426; 93005; 94640; 99285; J2930; J7644

== ENCOUNTER 2020-04-06 00:37 | Inpatient (IN) | payer MEDICARE, MEDICAID ==
[~2020-04-06] VITALS: Ht 167.6 cm; Wt 80.7 kg
[2020-04-06 02:26] LABS: Basophils # (auto) 0.1 10 ^3/uL (0-0.2); Basophils % (auto) 0.6 % (0.0-2.0); Eosinophils # (auto) 0.2 10 ^3/uL (0-0.8); Eosinophils % (auto) 2.5 % (0.0-7.0); Hematocrit 46.4 % (41.0-53.0); Hemoglobin 15.5 g/dL (13.5-17.5); Lymphocytes # (auto) 1.2 10 ^3/uL (0.4-5.4); Lymphocytes % (auto) 14.8 % (10.0-50.0); Mean Corpuscular Hemoglobin 31.1 pg (28.0-32.0); Mean Corpuscular Hgb Conc. 33.5 g/dL (32.0-36.0); Monocytes # (auto) 0.9 10 ^3/uL (0-1.3); Monocytes % (auto) 11.5 % (0.0-12.0); Neutrophils # (auto) 5.7 10 ^3/uL (1.6-8.6); Neutrophils % (auto) 70.6 % (37.0-80.0); Nucleated Red Blood Cells % 0.1 %; Platelet Count (auto) 135 10^3/uL (140-450); Red Blood Cells 4.99 10^6/uL (4.5-5.90); Red Cell Distribution Width 14.5 % (11.8-14.3)
[2020-04-06 02:43] LABS: Albumin 3.8 g/dL (3.4-5.0); BUN/Creatinine Ratio 20.4; Calcium 8.8 mg/dL (8.5-10.1); Potassium 3.6 mmol/L (3.5-5.1)
[2020-04-06 02:48] LABS: Bilirubin, Total 0.7 mg/dL (0.2-1.0); Total Protein 7.5 g/dL (6.4-8.2)
[2020-04-06 02:49] LABS: INR 0.99 (0.9-1.15)
[2020-04-06] MEDS ORDERED: ENOXAPARIN SOD 60 MG/0.6 ML SYRINGE SC ONE (07:30)
[2020-04-06] MEDS ORDERED: FUROSEMIDE 40 MG/4 ML VIAL IV ONE (07:30)
[2020-04-06] MEDS ORDERED: ACETAMINOPHEN 500 MG TAB PO PRN (09:45)
[2020-04-06] MEDS ORDERED: NITROGLYCERIN 0.4 MG SL TAB SL PRN (09:45)
[2020-04-06] MEDS ORDERED: ALBUTEROL SULF 2.5 MG/0.5ML(0.5%) NEB SOLN NEB PRN (09:45)
[2020-04-06] MEDS ORDERED: hydrALAZINE HCL 20 MG/ML VL IV PRN (09:45)
[2020-04-06] MEDS ORDERED: MORPHINE SULF INJ 2 MG/ML SYRINGE 1ML IV PRN ×2 (09:45)
[2020-04-06] MEDS ORDERED: ONDANSETRON HCL 4 MG/2 ML VIAL IV PRN (09:45)
[2020-04-06] MEDS ORDERED: HYDROcodone-ACET 5/325MG TAB PO PRN (09:45)
[2020-04-06] MEDS ORDERED: IPRATROPIUM BROM 0.5 MG/2.5ML INH SOL NEB PRN (09:45)
[2020-04-06] MEDS: FAMOTIDINE 20 MG TAB PO SCH (10:12)
[2020-04-06] MEDS: CLOPIDOGREL BISULFATE 75 MG TAB PO SCH (10:12)
[2020-04-06] MEDS: LISINOPRIL 10 MG TAB PO SCH (10:12)
[2020-04-06] MEDS: METOPROLOL TARTRATE 25 MG TAB PO SCH ×2 (10:12→21:32)
[2020-04-06] MEDS: DOCUSATE SOD 100 MG CAP PO SCH ×2 (10:12→21:30)
[2020-04-06] MEDS: ASPirin-EC 81 mg tab PO SCH (10:12)
[2020-04-06 11:40] VITALS: BP 180/114
[2020-04-06 14:15] VITALS: BP 144/98
[2020-04-06] MEDS: ALPRAZolam 0.25 MG TAB PO SCH ×2 (15:19→15:22)
[2020-04-06] MEDS ORDERED: INFLUENZA QUAD 2020-2021 0.5 ML SYRG IM ONE (15:30)
[2020-04-06 16:40] VITALS: BP 130/87
[2020-04-06] MEDS: traZODone HCL 50 MG TAB PO SCH (21:30)
[2020-04-06] MEDS: ATORVASTATIN 20 MG TAB PO SCH (21:31)
[2020-04-07] MEDS: ALPRAZolam 0.25 MG TAB PO SCH ×3 (06:00→21:56)
[2020-04-07 08:00] VITALS: BP 122/94
[2020-04-07 08:32] VITALS: BP 122/94
[2020-04-07] MEDS: DOCUSATE SOD 100 MG CAP PO SCH ×2 (11:00→21:55)
[2020-04-07] MEDS: FUROSEMIDE 20 MG/2 ML VIAL IV SCH (11:00)
[2020-04-07] MEDS: ASPirin-EC 81 mg tab PO SCH (11:01)
[2020-04-07] MEDS: CLOPIDOGREL BISULFATE 75 MG TAB PO SCH (11:01)
[2020-04-07] MEDS: LISINOPRIL 10 MG TAB PO SCH (11:01)
[2020-04-07] MEDS: FAMOTIDINE 20 MG TAB PO SCH (11:02)
[2020-04-07] MEDS: METOPROLOL TARTRATE 25 MG TAB PO SCH ×2 (11:02→21:57)
[2020-04-07 13:00] VITALS: BP 124/77
[2020-04-07 15:17] VITALS: BP 124/77
[2020-04-07] MEDS ORDERED: MAGNESIUM SULFATE 1GM/100ML 100 ML IV SCH (17:00)
[2020-04-07 17:40] VITALS: BP 127/82
[2020-04-07 19:55] LABS: Alcohol, Urine < 3.0 mg/dL (0-10); Amphetamine Screen, Urine POSITIVE (NEGATIVE); Barbiturate Scree,Urine NEGATIVE (NEGATIVE); Benzodiazephine Screen, Urine NEGATIVE (NEGATIVE); Cannabinoid Screen, Urine NEGATIVE (NEGATIVE); Cocaine Screen, Urine NEGATIVE (NEGATIVE); Opiate Scree,Urine NEGATIVE (NEGATIVE); Phencyclidine Screen, Urine NEGATIVE (NEGATIVE)
[2020-04-07] MEDS: traZODone HCL 50 MG TAB PO SCH (21:55)
[2020-04-07] MEDS: MAGNESIUM OXIDE 400 MG TAB PO SCH (21:56)
[2020-04-07] MEDS: ATORVASTATIN 20 MG TAB PO SCH (21:56)
[2020-04-07 22:00] VITALS: BP 124/99
[2020-04-08] MEDS ORDERED: SODIUM BICARBONATE 8.4% INJ 50ML SYRINGE ONE (05:04)
[2020-04-08] MEDS: ALPRAZolam 0.25 MG TAB PO SCH ×2 (06:00→15:05)
[2020-04-08 08:05] LABS: Basophils # (auto) 0 10 ^3/uL (0-0.2); Basophils % (auto) 0.9 % (0.0-2.0); Eosinophils # (auto) 0.3 10 ^3/uL (0-0.8); Eosinophils % (auto) 6.1 % (0.0-7.0); Hematocrit 42.5 % (41.0-53.0); Hemoglobin 14.1 g/dL (13.5-17.5); Lymphocytes # (auto) 1.3 10 ^3/uL (0.4-5.4); Lymphocytes % (auto) 26.9 % (10.0-50.0); Mean Corpuscular Hemoglobin 30.7 pg (28.0-32.0); Mean Corpuscular Hgb Conc. 33.2 g/dL (32.0-36.0); Mean Corpuscular Volume 92.5 fL (80.0-100.0); Monocytes # (auto) 0.6 10 ^3/uL (0-1.3); Neutrophils # (auto) 2.5 10 ^3/uL (1.6-8.6); Neutrophils % (auto) 53.1 % (37.0-80.0); Nucleated Red Blood Cells % 0.1 %; Platelet Count (auto) 115 10^3/uL (140-450); Red Blood Cells 4.59 10^6/uL (4.5-5.90); Red Cell Distribution Width 14.2 % (11.8-14.3); White Blood Cell 4.7 10^3/uL (4.4-10.8)
[2020-04-08 08:23] LABS: Albumin 2.7 g/dL (3.4-5.0); Calcium 8.4 mg/dL (8.5-10.1); Magnesium 2.2 mg/dL (1.6-2.6); Potassium 3.2 mmol/L (3.5-5.1)
[2020-04-08 08:28] LABS: BUN/Creatinine Ratio 26.9; Bilirubin, Total 0.8 mg/dL (0.2-1.0); CRP High Sensitivity 0.23 mg/dL (< 0.3); Total Protein 5.8 g/dL (6.4-8.2)
[2020-04-08 09:00] VITALS: BP 135/95
[2020-04-08] MEDS ORDERED: ZINC SULFATE 220mg CAP or TAB PO SCH (10:00)
[2020-04-08] MEDS ORDERED: ASCORBIC ACID 1,000 MG TAB PO SCH (10:00)
[2020-04-08] MEDS ORDERED: CHOLECALCIFEROL (VITD3) 2,000 UNIT CAP PO SCH (10:00)
[2020-04-08] MEDS: FUROSEMIDE 20 MG/2 ML VIAL IV SCH (11:07)
[2020-04-08] MEDS: METOPROLOL TARTRATE 25 MG TAB PO SCH (11:08)
[2020-04-08] MEDS: DOCUSATE SOD 100 MG CAP PO SCH (11:08)
[2020-04-08] MEDS: MAGNESIUM OXIDE 400 MG TAB PO SCH (11:08)
[2020-04-08] MEDS: ASPirin-EC 81 mg tab PO SCH (11:08)
[2020-04-08] MEDS: FAMOTIDINE 20 MG TAB PO SCH (11:09)
[2020-04-08] MEDS: CLOPIDOGREL BISULFATE 75 MG TAB PO SCH (11:09)
[2020-04-08] MEDS: LISINOPRIL 10 MG TAB PO SCH (11:10)
[2020-04-08 13:00] VITALS: BP 135/74
[2020-04-08 13:44] LABS: Urine Bacteria NONE SEEN /hpf (None Seen); Urine Blood Negative /uL (Negative); Urine Specific Gravity 1.015 (1.001-1.035); Urine WBC <1 /hpf (0 - 3)
== END 2020-04-08 16:30 | disposition left against medical advice (07) | DRG 177 ==
LOC: ER 00:37 → EDBD 00:37 → TELE-WESTW 00:38 → ER 13:50 → TELE-WESTW 04-07 18:32
PROVIDERS: ADMIT Nurse Practitioner Acute Care; ATTEND Family Medicine
DX: U07.1 COVID-19 (principal); I21.4 Non-ST elevation (NSTEMI) myocardial infarction; J12.89 Other viral pneumonia; N17.0 Acute kidney failure with tubular necrosis; J96.20 Acute and chronic respiratory failure, unspecified whether with hypoxia or hypercapnia; I50.23 Acute on chronic systolic (congestive) heart failure; J44.1 Chronic obstructive pulmonary disease with (acute) exacerbation; I13.0 Hypertensive heart and chronic kidney disease with heart failure and stage 1 through stage 4 chronic kidney disease, or unspecified chronic kidney disease; I42.9 Cardiomyopathy, unspecified; J44.0 Chronic obstructive pulmonary disease with (acute) lower respiratory infection; N18.30 Chronic kidney disease, stage 3 unspecified; F17.210 Nicotine dependence, cigarettes, uncomplicated; F15.10 Other stimulant abuse, uncomplicated; E78.00 Pure hypercholesterolemia, unspecified; Z53.29 Procedure and treatment not carried out because of patient's decision for other reasons; F41.9 Anxiety disorder, unspecified; Z59.0 Homelessness; Z79.02 Long term (current) use of antithrombotics/antiplatelets; Z79.51 Long term (current) use of inhaled steroids; Z79.899 Other long term (current) drug therapy; Z81.8 Family history of other mental and behavioral disorders; Z82.49 Family history of ischemic heart disease and other diseases of the circulatory system; Z91.14 Patient's other noncompliance with medication regimen; Z82.5 Family history of asthma and other chronic lower respiratory diseases; Z86.73 Personal history of transient ischemic attack (TIA), and cerebral infarction without residual deficits; Z95.810 Presence of automatic (implantable) cardiac defibrillator
CPT/HCPCS: 36415; 71045; 80053; 80307; 81001; 82728; 83605; 83615; 83735; 83880; 84443; 84484; 85025; 85379; 85610; 85730; 86141; 87081; 96372; 96374; G0378

== ENCOUNTER 2020-04-08 18:28 | Emergency (ER) | payer MEDICARE, MEDICAID ==
[~2020-04-08] VITALS: Ht 167.6 cm; Wt 54.4 kg
[2020-04-08 22:55] LABS: Basophils # (auto) 0.1 10 ^3/uL (0-0.2); Basophils % (auto) 0.9 % (0.0-2.0); Eosinophils # (auto) 0.2 10 ^3/uL (0-0.8); Eosinophils % (auto) 3.9 % (0.0-7.0); Hematocrit 49.7 % (41.0-53.0); Hemoglobin 16.1 g/dL (13.5-17.5); Lymphocytes # (auto) 1.3 10 ^3/uL (0.4-5.4); Mean Corpuscular Hemoglobin 30.5 pg (28.0-32.0); Mean Corpuscular Hgb Conc. 32.3 g/dL (32.0-36.0); Mean Corpuscular Volume 94.5 fL (80.0-100.0); Monocytes # (auto) 0.6 10 ^3/uL (0-1.3); Neutrophils # (auto) 3.8 10 ^3/uL (1.6-8.6); Neutrophils % (auto) 63.2 % (37.0-80.0); Nucleated Red Blood Cells % 0.1 %; Platelet Count (auto) 125 10^3/uL (140-450); Red Blood Cells 5.26 10^6/uL (4.5-5.90); Red Cell Distribution Width 13.7 % (11.8-14.3)
[2020-04-08 23:29] LABS: Chloride 101 mmol/L (98-107); Potassium 3.7 mmol/L (3.5-5.1); Sodium 136 mmol/L (136-145)
[2020-04-08 23:39] LABS: Alanine Aminotransferase 33 U/L (16-61); Albumin 3.5 g/dL (3.4-5.0); Alkaline Phosphatase 113 U/L (45-117); Anion Gap 9 (5-15); Aspartate Aminotransferase 27 U/L (15-37); BUN/Creatinine Ratio 27.5; Bilirubin, Total 0.9 mg/dL (0.2-1.0); Blood Urea Nitrogen 33 mg/dL (7-18); CRP High Sensitivity 0.16 mg/dL (< 0.3); Calcium 8.8 mg/dL (8.5-10.1); Carbon Dioxide 26 mmol/L (21-32); GFR African American 76 mL/min; GFR Non-African American 63 mL/min; Glucose 85 mg/dL (74-106); Lactate Dehydrogenase 227 U/L (87-241); Magnesium 2.3 mg/dL (1.6-2.6)
[2020-04-09] MEDS ORDERED: predniSONE 20 MG TAB PO ONE (01:30)
[2020-04-09 02:47] VITALS: BP 111/75
[2020-04-09] MEDS ORDERED: ALBUTEROL SULF HFA 90MCG INH 200DOSE IN SCH (06:00)
== END 2020-04-09 04:03 | disposition home or self-care (01) ==
LOC: ER 18:42
DX: J44.9 Chronic obstructive pulmonary disease, unspecified (principal); E78.5 Hyperlipidemia, unspecified; I13.0 Hypertensive heart and chronic kidney disease with heart failure and stage 1 through stage 4 chronic kidney disease, or unspecified chronic kidney disease; I50.9 Heart failure, unspecified; N18.9 Chronic kidney disease, unspecified; Z87.891 Personal history of nicotine dependence
CPT/HCPCS: 36415; 36600; 71045; 80053; 82728; 82805; 83605; 83615; 83735; 83880; 84484; 85025; 85379; 86141; 87040; 93005; 99285; J7512

== ENCOUNTER 2020-04-18 06:53 | Emergency (ER) | payer MEDICARE, MEDICAID ==
[~2020-04-18] VITALS: Ht 167.6 cm; Wt 68.0 kg
[2020-04-18] MEDS ORDERED: methylPREDNISolone SOD SUCC 125 MG/2 ML VL IV ONE (07:30)
[2020-04-18] MEDS ORDERED: FUROSEMIDE 40 MG/4 ML VIAL IV ONE (07:30)
[2020-04-18 08:34] LABS: Basophils # (auto) 0 10 ^3/uL (0-0.2); Basophils % (auto) 0.3 % (0.0-2.0); Eosinophils # (auto) 0.1 10 ^3/uL (0-0.8); Eosinophils % (auto) 0.8 % (0.0-7.0); Hematocrit 44.3 % (41.0-53.0); Hemoglobin 14.7 g/dL (13.5-17.5); Lymphocytes # (auto) 0.8 10 ^3/uL (0.4-5.4); Lymphocytes % (auto) 8.4 % (10.0-50.0); Mean Corpuscular Hemoglobin 30.8 pg (28.0-32.0); Mean Corpuscular Hgb Conc. 33.1 g/dL (32.0-36.0); Mean Corpuscular Volume 93.1 fL (80.0-100.0); Monocytes # (auto) 0.9 10 ^3/uL (0-1.3); Neutrophils # (auto) 7.8 10 ^3/uL (1.6-8.6); Neutrophils % (auto) 81.5 % (37.0-80.0); Platelet Count (auto) 130 10^3/uL (140-450); Red Blood Cells 4.76 10^6/uL (4.5-5.90); Red Cell Distribution Width 14.1 % (11.8-14.3); White Blood Cell 9.5 10^3/uL (4.4-10.8)
[2020-04-18 08:38] VITALS: BP 171/108
[2020-04-18 09:02] LABS: Potassium 3.5 mmol/L (3.5-5.1)
[2020-04-18 09:13] LABS: Albumin 3.4 g/dL (3.4-5.0); BUN/Creatinine Ratio 23.9; Bilirubin, Total 0.9 mg/dL (0.2-1.0); Calcium 8.7 mg/dL (8.5-10.1)
== END 2020-04-19 12:15 | disposition left against medical advice (07) ==
LOC: ER 06:53 → EDBD 06:53 → ER 04-19 12:15
DX: J44.1 Chronic obstructive pulmonary disease with (acute) exacerbation (principal); I11.0 Hypertensive heart disease with heart failure; I50.9 Heart failure, unspecified; R77.8 Other specified abnormalities of plasma proteins; E78.5 Hyperlipidemia, unspecified; I25.2 Old myocardial infarction; Z87.891 Personal history of nicotine dependence; Z59.0 Homelessness
CPT/HCPCS: 36415; 71045; 80053; 83880; 84484; 85025; 93005; 96374; 96375; 99285; J1940; J2930

== ENCOUNTER 2020-04-20 15:36 | Inpatient (IN) | payer MEDICARE, MEDICAID ==
[~2020-04-20] VITALS: Ht 167.6 cm; Wt 59.8 kg
[2020-04-20 16:13] LABS: Basophils # (auto) 0 10 ^3/uL (0-0.2); Basophils % (auto) 0.5 % (0.0-2.0); Eosinophils # (auto) 0.2 10 ^3/uL (0-0.8); Eosinophils % (auto) 1.8 % (0.0-7.0); Hematocrit 40.8 % (41.0-53.0); Hemoglobin 13.5 g/dL (13.5-17.5); Lymphocytes # (auto) 0.9 10 ^3/uL (0.4-5.4); Lymphocytes % (auto) 8.4 % (10.0-50.0); Mean Corpuscular Hemoglobin 31.1 pg (28.0-32.0); Mean Corpuscular Hgb Conc. 33.2 g/dL (32.0-36.0); Mean Corpuscular Volume 93.7 fL (80.0-100.0); Monocytes # (auto) 0.9 10 ^3/uL (0-1.3); Monocytes % (auto) 8.6 % (0.0-12.0); Neutrophils # (auto) 8.8 10 ^3/uL (1.6-8.6); Neutrophils % (auto) 80.7 % (37.0-80.0); Platelet Count (auto) 143 10^3/uL (140-450); Red Blood Cells 4.35 10^6/uL (4.5-5.90); Red Cell Distribution Width 14.5 % (11.8-14.3); White Blood Cell 10.8 10^3/uL (4.4-10.8)
[2020-04-20 16:34] LABS: Albumin 3.5 g/dL (3.4-5.0); Calcium 8.6 mg/dL (8.5-10.1); Potassium 3.7 mmol/L (3.5-5.1)
[2020-04-20 16:35] LABS: INR 0.98 (0.9-1.15); Partial Thromboplastin Time 30.4 sec (23.0-31.2)
[2020-04-20 16:39] LABS: BUN/Creatinine Ratio 17.1; Total Protein 6.8 g/dL (6.4-8.2)
[2020-04-20 18:14] LABS: Urine Bacteria NONE SEEN /hpf (None Seen); Urine Blood Negative /uL (Negative); Urine Hyaline Cast FEW /lpf (0 - 2); Urine Specific Gravity 1.017 (1.001-1.035); Urine WBC 3 /hpf (0 - 3)
[2020-04-20] MEDS ORDERED: ALBUTEROL SULF 2.5 MG/0.5ML(0.5%) NEB SOLN NEB ONE (21:45)
[2020-04-20] MEDS ORDERED: LORazepam 2MG/ML-1ML VIAL IV ONE (21:45)
[2020-04-20] MEDS ORDERED: methylPREDNISolone SOD SUCC 125 MG/2 ML VL IV ONE (21:45)
[2020-04-20] MEDS ORDERED: IPRATROPIUM BROM 0.5 MG/2.5ML INH SOL NEB ONE (21:45)
[2020-04-20] MEDS ORDERED: ETOMIDATE (2MG/ML) 20ML VIAL IV ONE (23:48)
[2020-04-20] MEDS ORDERED: SUCCINYLCHOLINE CHLORIDE 20 MG/ML 10ML VIAL IV ONE (23:49)
[2020-04-21] MEDS ORDERED: ALBUTEROL SULF 2.5 MG/0.5ML(0.5%) NEB SOLN NEB ONE ×2 (00:30→02:00)
[2020-04-21] MEDS ORDERED: IPRATROPIUM BROM 0.5 MG/2.5ML INH SOL NEB ONE (00:30)
[2020-04-21] MEDS ORDERED: ACETAMINOPHEN 325 MG TAB PO PRN (01:30)
[2020-04-21] MEDS ORDERED: DOCUSATE SOD 100 MG CAP PO PRN (01:30)
[2020-04-21] MEDS ORDERED: MORPHINE SULF INJ 2 MG/ML SYRINGE 1ML IV PRN (01:30)
[2020-04-21] MEDS ORDERED: ONDANSETRON HCL 4 MG/2 ML VIAL IV PRN (01:30)
[2020-04-21] MEDS ORDERED: NITROGLYCERIN 0.4 MG SL TAB SL PRN (01:30)
[2020-04-21] MEDS: SODIUM CHLOR 0.9% PF (SALINE LOCK) 10ML VIAL/SYR IV SCH ×3 (06:00→22:00)
[2020-04-21 06:24] LABS: Basophils # (auto) 0 10 ^3/uL (0-0.2); Basophils % (auto) 0.2 % (0.0-2.0); Eosinophils # (auto) 0 10 ^3/uL (0-0.8); Hematocrit 43.2 % (41.0-53.0); Hemoglobin 14.4 g/dL (13.5-17.5); Lymphocytes # (auto) 0.3 10 ^3/uL (0.4-5.4); Lymphocytes % (auto) 2.7 % (10.0-50.0); Mean Corpuscular Hemoglobin 31.5 pg (28.0-32.0); Mean Corpuscular Hgb Conc. 33.3 g/dL (32.0-36.0); Mean Corpuscular Volume 94.4 fL (80.0-100.0); Monocytes # (auto) 0.1 10 ^3/uL (0-1.3); Monocytes % (auto) 1.1 % (0.0-12.0); Neutrophils # (auto) 10.8 10 ^3/uL (1.6-8.6); Nucleated Red Blood Cells % 0.1 %; Red Blood Cells 4.58 10^6/uL (4.5-5.90); Red Cell Distribution Width 14.1 % (11.8-14.3); White Blood Cell 11.3 10^3/uL (4.4-10.8)
[2020-04-21 06:44] LABS: Potassium 4.7 mmol/L (3.5-5.1)
[2020-04-21 06:54] LABS: Albumin 3.4 g/dL (3.4-5.0); BUN/Creatinine Ratio 17.9; Bilirubin, Total 1.7 mg/dL (0.2-1.0); Total Protein 7.4 g/dL (6.4-8.2)
[2020-04-21 07:53] LABS: Platelet Count (auto) 124 10^3/uL (140-450)
[2020-04-21] MEDS: ALBUTEROL SULF 2.5 MG/0.5ML(0.5%) NEB SOLN NEB SCH ×6 (08:36→22:30)
[2020-04-21] MEDS: IPRATROPIUM BROM 0.5 MG/2.5ML INH SOL NEB SCH ×6 (08:36→22:30)
[2020-04-21] MEDS ORDERED: FUROSEMIDE 40 MG/4 ML VIAL IV SCH (10:00)
[2020-04-21] MEDS ORDERED: ENOXAPARIN SOD 40 MG/0.4 ML SYRINGE SC SCH (10:00)
[2020-04-21] MEDS: PANTOPRAZOLE 40 MG/10 ML VIAL INJ IV SCH (10:41)
[2020-04-21] MEDS: ZINC SULFATE 220mg CAP or TAB PO SCH (10:41)
[2020-04-21] MEDS: MULTIPLE VITAMIN TAB PO SCH (10:42)
[2020-04-21] MEDS: ASCORBIC ACID 500 MG TAB PO SCH ×2 (10:42→22:00)
[2020-04-21] MEDS: FAMOTIDINE 20 MG TAB PO SCH ×2 (10:42→22:00)
[2020-04-21] MEDS ORDERED: METOPROLOL TARTRATE 50 MG TAB PO ONE (10:45)
[2020-04-21] MEDS ORDERED: ENOXAPARIN SOD 30 MG/0.3 ML SYRINGE SC ONE (11:15)
[2020-04-21] MEDS ORDERED: DOCUSATE SODIUM 250 MG PO PRN (11:30)
[2020-04-21] MEDS ORDERED: DOCUSATE SODIUM 100 MG PO PRN (11:45)
[2020-04-21] MEDS: LORazepam 2MG/ML-1ML VIAL IV PRN (17:17)
[2020-04-21] MEDS: BUMETANIDE 2.5mg/10ml (0.25 mg/ml) INJ IV SCH (18:42)
[2020-04-21] MEDS: FLUTICASONE PROPIONATE IN SCH (18:44)
[2020-04-21] MEDS ORDERED: diphenhdrAMINE HCL 50 MG/1 ML VL IV ONE (19:45)
[2020-04-21] MEDS ORDERED: FAMOTIDINE (10MG/ML) 2ML VL IV ONE (19:45)
[2020-04-21] MEDS ORDERED: methylPREDNISolone SOD SUCC 125 MG/2 ML VL IV ONE (19:45)
[2020-04-21 21:40] VITALS: BP 145/100
--- NOTE | 2020-04-21 21:40 | NUR ---
ADMIT FROM ER PATIENT PLACED ON TELE BOX #51, READING IS [address]. PATIENT IN BED, BED IS LOCKED AT LOWEST POSITION, BED RAILS UP X2 AND HEAD OF BED IS UP >30 DEGREES. BEDSIDE TABLE WITHIN REACH CALL LIGHT WITHIN REACH. INSTRUCTED PATIENT TO CALL PRN USING CALL LIGHT. PATIENT IS NON COMPLIANT WITH O2 OXYMIZER. PATIENT PULLING ON TUBING. PATIENT IS ALERT AND ORIENTED X4 AND IS AGITATED REFUSING ALL CARE. EDUCATION PROVIDED REGARDING IMPORTANCE OF SUPPLEMENTAL OXYGEN AND MEDICATIONS; PATIENT IS STILL NON COMPLIANT. NURSE SILVERWARE WASHER AT BEDSIDE FOR PATIENT SAFETY. WILL CONTINUE TO MONITOR Q1H AND PRN.
[2020-04-21] MEDS: ENOXAPARIN SOD 40 MG/0.4 ML SYRINGE SC SCH (22:00)
[2020-04-21] MEDS: METOPROLOL TARTRATE 50 MG TAB PO SCH (22:00)
[2020-04-21] MEDS: traZODone HCL 50 MG TAB PO SCH (22:00)
--- NOTE | 2020-04-21 22:25 | NUR ---
PATIENT REFUSED MEDICATIONS EDUCATION PROVIDED REGARDING IMPORTANCE OF MEDICATION. PATIENT CONTINUES TO REFUSE CARE AND MEDICATIONS. WILL CONTINUE TO MONITOR Q1H AND PRN. PATIENT IS ON CONTINUOUS OXIDIZED FINISH PLATER. NURSE QUALITY RN AT BEDSIDE FOR SAFETY PRECAUTIONS.
--- NOTE | 2020-04-22 00:30 | NUR ---
PATIENT CONTINUES TO PULL AT OXYGEN LINES. EDUCATED PATIENT REGARDING IMPORTANCE OF SUPPLEMENTAL OXYGEN AND RISK OF IF LINE IS PULLED OFF. OXYGEN LINES TAPED TO SECURE IN PLACE AND NURSE BATHHOUSE ATTENDANT AT BEDSIDE FOR PATIENT SAFETY. PATIENT BECOMES AGITATED AND NONCOMPLIANT PERIODICALLY.
[2020-04-22] MEDS: IPRATROPIUM BROM 0.5 MG/2.5ML INH SOL NEB SCH ×5 (02:00→22:00)
[2020-04-22] MEDS: ALBUTEROL SULF 2.5 MG/0.5ML(0.5%) NEB SOLN NEB SCH ×5 (02:00→22:00)
--- NOTE | 2020-04-22 02:00 | NUR ---
HHN TX HELD DUE TO COMBATIVE PT REFUSED TX. PT NOT IN RESPIRATORY DISTRESS, WILL CONTINUE TO MONITOR.
[2020-04-22] MEDS: LORazepam 2MG/ML-1ML VIAL IV PRN ×2 (03:10→13:30)
[2020-04-22 05:26] VITALS: BP 146/90
--- NOTE | 2020-04-22 06:07 | NUR ---
Respiratory note: RECEIVED PT ON 10L OXYMIZER. ADMINISTERED MEDNEB AND PT TOLERATED IT WELL. WILL CONTINUE TO MONITOR.
[2020-04-22] MEDS: BUMETANIDE 2.5mg/10ml (0.25 mg/ml) INJ IV SCH ×2 (06:42→18:19)
[2020-04-22] MEDS: SODIUM CHLOR 0.9% PF (SALINE LOCK) 10ML VIAL/SYR IV SCH ×3 (06:43→21:33)
--- NOTE | 2020-04-22 07:15 | NUR ---
CLOSING NOTE- NOC SHIFT ENDORSED PATIENT CARE TO DAY SHIFT NURSE SEYMOUR MCKEON. PATIENT IS IN BED. NURSE HEATING FIXTURE TENDER AT BEDSIDE FOR SAFETY PRECAUTIONS. PATIENT IS COMFORTABLE IN BED AT THIS TIME.
[2020-04-22 09:00] VITALS: BP 135/87
[2020-04-22] MEDS: ENOXAPARIN SOD 40 MG/0.4 ML SYRINGE SC SCH ×2 (10:00→21:39)
[2020-04-22] MEDS: PANTOPRAZOLE 40 MG/10 ML VIAL INJ IV SCH (10:00)
[2020-04-22] MEDS: ASCORBIC ACID 500 MG TAB PO SCH ×2 (10:00→21:39)
[2020-04-22] MEDS ORDERED: CLOPIDOGREL BISULFATE 75 MG TAB PO SCH (10:00)
[2020-04-22] MEDS: FLUTICASONE PROPIONATE IN SCH ×2 (10:00→21:33)
[2020-04-22] MEDS: FAMOTIDINE 20 MG TAB PO SCH ×2 (10:00→21:39)
[2020-04-22] MEDS: METOPROLOL TARTRATE 50 MG TAB PO SCH ×2 (10:00→21:39)
[2020-04-22] MEDS: ZINC SULFATE 220mg CAP or TAB PO SCH (10:00)
[2020-04-22] MEDS: ATORVASTATIN 20 MG TAB PO SCH (10:00)
[2020-04-22] MEDS: MULTIPLE VITAMIN TAB PO SCH (10:00)
[2020-04-22] MEDS ORDERED: LISINOPRIL 20 MG TAB PO SCH (10:00)
[2020-04-22] MEDS: ASPirin-EC 81 mg tab PO SCH (10:00)
[2020-04-22 11:08] LABS: Basophils # (auto) 0 10 ^3/uL (0-0.2); Eosinophils # (auto) 0 10 ^3/uL (0-0.8); Hematocrit 39.1 % (41.0-53.0); Hemoglobin 13.2 g/dL (13.5-17.5); Lymphocytes # (auto) 0.4 10 ^3/uL (0.4-5.4); Lymphocytes % (auto) 3.4 % (10.0-50.0); Mean Corpuscular Hemoglobin 31.3 pg (28.0-32.0); Mean Corpuscular Hgb Conc. 33.6 g/dL (32.0-36.0); Mean Corpuscular Volume 92.9 fL (80.0-100.0); Monocytes # (auto) 0.5 10 ^3/uL (0-1.3); Monocytes % (auto) 4.4 % (0.0-12.0); Neutrophils # (auto) 10.8 10 ^3/uL (1.6-8.6); Neutrophils % (auto) 92.2 % (37.0-80.0); Platelet Count (auto) 145 10^3/uL (140-450); Red Blood Cells 4.21 10^6/uL (4.5-5.90); Red Cell Distribution Width 13.9 % (11.8-14.3); White Blood Cell 11.7 10^3/uL (4.4-10.8)
[2020-04-22 11:21] LABS: Calcium 8.7 mg/dL (8.5-10.1); Potassium 3.8 mmol/L (3.5-5.1)
[2020-04-22 11:31] LABS: BUN/Creatinine Ratio 28.5; Bilirubin, Total 0.8 mg/dL (0.2-1.0); Total Protein 6.2 g/dL (6.4-8.2)
--- NOTE | 2020-04-22 12:05 | NUR ---
PATIENT IS REFUSING THE MRSA AND COVID SWABS.
[2020-04-22 13:00] VITALS: BP 139/109
[2020-04-22 17:00] VITALS: BP 147/114
--- NOTE | 2020-04-22 19:34 | NUR ---
Opening Shift Note Assumed care of patient, awake and alert x 2. No S/S of distress/SOB or pain. Bed is in lowest position and locked. Call light within reach. Board updated. Tele box number matches monitor and leads are in correct placement. Patient on 10 l/min oxymizer. Sitter at bedside. Instructed on POC and to call for assist PRN, will continue to monitor for changes Q1hr and PRN.
[2020-04-22 21:00] VITALS: BP 130/90
[2020-04-22] MEDS: traZODone HCL 50 MG TAB PO SCH (21:38)
[2020-04-22 22:00] VITALS: BP 140/89
--- NOTE | 2020-04-22 23:00 | NUR ---
Received report from Bret Cruz.
--- NOTE | 2020-04-22 23:00 | NUR ---
Opening Shift Note Assumed care of patient, awake and alert. No S/S of distress/SOB or pain. Instructed on POC and to call for assist PRN, will continue to monitor for changes Q1hr and PRN.Sitter at bedside, due to patient is pulling out his oxygen.
--- NOTE | 2020-04-22 23:20 | NUR ---
Care endorsed to LINDA De Leon. Patient asleep, showing no signs of distress at this time.
[2020-04-23] MEDS: IPRATROPIUM BROM 0.5 MG/2.5ML INH SOL NEB SCH ×5 (02:00→19:51)
[2020-04-23] MEDS: ALBUTEROL SULF 2.5 MG/0.5ML(0.5%) NEB SOLN NEB SCH ×5 (02:00→19:51)
[2020-04-23 05:00] VITALS: BP 122/73
[2020-04-23] MEDS: BUMETANIDE 2.5mg/10ml (0.25 mg/ml) INJ IV SCH ×2 (06:29→18:17)
[2020-04-23] MEDS: SODIUM CHLOR 0.9% PF (SALINE LOCK) 10ML VIAL/SYR IV SCH ×3 (06:30→22:32)
--- NOTE | 2020-04-23 07:13 | NUR ---
Report given to Lesia Arguello, patient is resting ,sitter at bedside.
[2020-04-23 09:09] VITALS: BP 125/96
[2020-04-23] MEDS: ZINC SULFATE 220mg CAP or TAB PO SCH (10:00)
[2020-04-23] MEDS: ENOXAPARIN SOD 40 MG/0.4 ML SYRINGE SC SCH ×2 (10:00→22:31)
[2020-04-23] MEDS: ASPirin-EC 81 mg tab PO SCH (10:00)
[2020-04-23] MEDS: PANTOPRAZOLE 40 MG/10 ML VIAL INJ IV SCH (10:00)
[2020-04-23] MEDS: FAMOTIDINE 20 MG TAB PO SCH ×2 (10:00→22:30)
[2020-04-23] MEDS: ASCORBIC ACID 500 MG TAB PO SCH ×2 (10:00→22:30)
[2020-04-23] MEDS: FLUTICASONE PROPIONATE IN SCH ×2 (10:00→22:00)
[2020-04-23] MEDS: ATORVASTATIN 20 MG TAB PO SCH (10:00)
[2020-04-23] MEDS: MULTIPLE VITAMIN TAB PO SCH (10:00)
[2020-04-23] MEDS: METOPROLOL TARTRATE 50 MG TAB PO SCH ×2 (10:00→22:31)
[2020-04-23 13:20] VITALS: BP 124/78
--- NOTE | 2020-04-23 15:25 | NUR ---
1:1 SITTER AT BEDSIDE. PT REFUSED AM MEDS. PRESENTLY RESTING WITH EYES CLOSED. DR RUFF ROUNDED. DR NITIN KHAN ROUNDED.
--- NOTE | 2020-04-23 16:08 | NUR ---
SS consult for homelessness. Pt is presently confused and unable to participate in evaluation for consult. Will reassess pt once medically stable and able to be assessed.
--- NOTE | 2020-04-23 16:20 | NUR ---
Respiratory note: 14:00 SCHEDULED MED NEB TX NOT GIVEN THERAPIST WAS UNAVAILABLE, RN AWARE TO HAVE RT PAGED IF NEEDED. NOC RT TO FOLLOW WITH NEXT SCHEDULED TX AT 18:00.
[2020-04-23 16:33] VITALS: BP 129/94
[2020-04-23 22:14] VITALS: BP 152/102
[2020-04-23] MEDS: traZODone HCL 50 MG TAB PO SCH (22:30)
[2020-04-24] MEDS: ALBUTEROL SULF 2.5 MG/0.5ML(0.5%) NEB SOLN NEB SCH ×5 (00:05→22:00)
[2020-04-24] MEDS: IPRATROPIUM BROM 0.5 MG/2.5ML INH SOL NEB SCH ×5 (00:05→22:00)
[2020-04-24 04:58] VITALS: BP 144/96
[2020-04-24] MEDS: BUMETANIDE 2.5mg/10ml (0.25 mg/ml) INJ IV SCH ×2 (06:29→18:06)
[2020-04-24] MEDS: SODIUM CHLOR 0.9% PF (SALINE LOCK) 10ML VIAL/SYR IV SCH ×3 (06:29→20:07)
--- NOTE | 2020-04-24 08:35 | NUR ---
Respiratory note:RECEIVED PT ON 5L OXYMIZER SATING 99%. ADMINISTERED NEBS. PT TOLERATED WELL. WILL CONTINUE TO MONITOR.
[2020-04-24] MEDS: FLUTICASONE PROPIONATE IN SCH ×2 (08:49→21:24)
[2020-04-24 09:00] VITALS: BP 139/75
[2020-04-24] MEDS: PANTOPRAZOLE 40 MG/10 ML VIAL INJ IV SCH (09:11)
[2020-04-24] MEDS: MULTIPLE VITAMIN TAB PO SCH (09:12)
[2020-04-24] MEDS: ZINC SULFATE 220mg CAP or TAB PO SCH (09:12)
[2020-04-24] MEDS: ATORVASTATIN 20 MG TAB PO SCH (09:12)
[2020-04-24] MEDS: ASPirin-EC 81 mg tab PO SCH (09:12)
[2020-04-24] MEDS: ENOXAPARIN SOD 40 MG/0.4 ML SYRINGE SC SCH ×2 (09:13→20:08)
[2020-04-24] MEDS: ASCORBIC ACID 500 MG TAB PO SCH ×2 (09:13→20:06)
[2020-04-24] MEDS: FAMOTIDINE 20 MG TAB PO SCH ×2 (09:13→20:06)
[2020-04-24] MEDS: METOPROLOL TARTRATE 50 MG TAB PO SCH ×3 (09:14→20:07)
--- NOTE | 2020-04-24 12:38 | NUR ---
Nutrition Assessment/Consult Notes Please refer to link for full assessment notes. Est Energy needs: 6850-7141 kcals (20-23 kcal/kgBW) Est Protein needs: 64-70 gms/day (1.0-1.1 gm/kgBW) Will continue to monitor and reassess prn. Addendum: 04/24/20 at [address] Amended: Links added.
[2020-04-24 13:12] VITALS: BP 139/87
[2020-04-24 17:00] VITALS: BP 133/96
--- NOTE | 2020-04-24 17:42 | NUR ---
COVID SWAB AND MRSA NARES SWAB SENT TO LAB
--- NOTE | 2020-04-24 20:00 | NUR ---
Opening Shift Note Assumed care of patient, awake and alert. No S/S of distress/SOB or pain. Instructed on POC and to call for assist PRN, will continue to monitor for changes Q1hr and PRN.Sitter at bedside, with 5 liters Oxymizer on.
--- NOTE | 2020-04-24 20:03 | NUR ---
Requested med. for heartburn, given the Pepcid early.
[2020-04-24] MEDS: traZODone HCL 50 MG TAB PO SCH (20:06)
[2020-04-24 22:00] VITALS: BP 141/101
[2020-04-25] MEDS: ALBUTEROL SULF 2.5 MG/0.5ML(0.5%) NEB SOLN NEB SCH ×6 (02:00→20:08)
[2020-04-25] MEDS: IPRATROPIUM BROM 0.5 MG/2.5ML INH SOL NEB SCH ×6 (02:00→20:08)
[2020-04-25] MEDS: HYDROcodone-ACET 5/325MG TAB PO PRN ×2 (04:46→09:19)
[2020-04-25] MEDS: SODIUM CHLOR 0.9% PF (SALINE LOCK) 10ML VIAL/SYR IV SCH ×3 (04:47→21:05)
[2020-04-25 05:00] VITALS: BP 152/117
[2020-04-25] MEDS: BUMETANIDE 2.5mg/10ml (0.25 mg/ml) INJ IV SCH ×2 (05:39→17:30)
--- NOTE | 2020-04-25 07:06 | NUR ---
Report given to Bret Arguello, patient is resting no distress.
[2020-04-25] MEDS: FLUTICASONE PROPIONATE IN SCH ×2 (08:58→21:04)
[2020-04-25 09:00] VITALS: BP 113/75
[2020-04-25] MEDS: ENOXAPARIN SOD 40 MG/0.4 ML SYRINGE SC SCH ×2 (09:00→21:02)
[2020-04-25] MEDS: PANTOPRAZOLE 40 MG/10 ML VIAL INJ IV SCH (09:00)
[2020-04-25] MEDS: FAMOTIDINE 20 MG TAB PO SCH ×2 (09:01→21:04)
[2020-04-25] MEDS: ASPirin-EC 81 mg tab PO SCH (09:01)
[2020-04-25] MEDS: ZINC SULFATE 220mg CAP or TAB PO SCH (09:01)
[2020-04-25] MEDS: MULTIPLE VITAMIN TAB PO SCH (09:02)
[2020-04-25] MEDS: ATORVASTATIN 20 MG TAB PO SCH (09:02)
[2020-04-25] MEDS: ASCORBIC ACID 500 MG TAB PO SCH ×2 (09:02→21:03)
[2020-04-25] MEDS: METOPROLOL TARTRATE 50 MG TAB PO SCH ×2 (09:18→23:33)
[2020-04-25 13:30] VITALS: BP 129/89
--- NOTE | 2020-04-25 14:20 | NUR ---
Assessment Patient is agreeance with placement and is being referred to [facility] for rehabilitation. Faxed clinical information to [facility]. Per Benita with [facility] patient has been accepted to room 29b accepting MD, Dr. Mendez. Discussed with patient of accepting facility. Patient verbalized agreeance. Provided information to clothes closet and meal prior to discharge. Transportation will be arranged upon discharge day. Completed homeless assessment and pt signed homeless waiver. Will follow-up and provide intervention as appropriate. Addendum: 04/25/20 at 1429 by TYLER HU Amended: Links added.
[2020-04-25] MEDS: LORazepam 2MG/ML-1ML VIAL IV PRN (16:28)
[2020-04-25 16:47] VITALS: BP 105/73
--- NOTE | 2020-04-25 17:19 | NUR ---
1:1 SITTER CONTINUES AT BEDSIDE. PT RESTLESS, REMOVING OXYGEN, STATING "I NEED TO GET TO THE HOSPITAL" MEDICATED WITH ATIVAN 1 MG PER ORDER. CONTINUING TO MONITOR CLOSELY.
--- NOTE | 2020-04-25 20:00 | NUR ---
Opening Shift Note Assumed care of patient, awake and alert. No S/S of distress/SOB or pain. Instructed on POC and to call for assist PRN, will continue to monitor for changes Q1hr and PRN.Sitter at bedside.
[2020-04-25] MEDS: traZODone HCL 50 MG TAB PO SCH (21:04)
[2020-04-25 22:07] VITALS: BP 150/85
[2020-04-26] MEDS ORDERED: IPRATROPIUM BROM 0.5 MG/2.5ML INH SOL NEB PRN (02:00)
[2020-04-26] MEDS ORDERED: ALBUTEROL SULF 2.5 MG/0.5ML(0.5%) NEB SOLN NEB PRN (02:00)
[2020-04-26 04:45] VITALS: BP 143/72
[2020-04-26] MEDS: BUMETANIDE 2.5mg/10ml (0.25 mg/ml) INJ IV SCH (05:53)
[2020-04-26] MEDS: SODIUM CHLOR 0.9% PF (SALINE LOCK) 10ML VIAL/SYR IV SCH ×2 (05:53→13:42)
--- NOTE | 2020-04-26 07:25 | NUR ---
Opening Shift Note Assumed care of patient, awake and alert. No S/S of distress/SOB or pain. Instructed on POC and to call for assist PRN, will continue to monitor for changes Q1hr and PRN. Sitter at bedside.
--- NOTE | 2020-04-26 07:27 | NUR ---
REPORT GIVEN TO Cesar ISSA, PATIENT IS RESTING NO DISTRESS.
[2020-04-26 09:00] VITALS: BP 122/84
[2020-04-26] MEDS: FLUTICASONE PROPIONATE IN SCH (10:00)
[2020-04-26] MEDS: PANTOPRAZOLE 40 MG/10 ML VIAL INJ IV SCH ×2 (10:00→10:41)
[2020-04-26] MEDS: ASPirin-EC 81 mg tab PO SCH (10:37)
[2020-04-26] MEDS: ZINC SULFATE 220mg CAP or TAB PO SCH (10:38)
[2020-04-26] MEDS: ATORVASTATIN 20 MG TAB PO SCH (10:38)
[2020-04-26] MEDS: FAMOTIDINE 20 MG TAB PO SCH (10:39)
[2020-04-26] MEDS: METOPROLOL TARTRATE 50 MG TAB PO SCH (10:39)
[2020-04-26] MEDS: MULTIPLE VITAMIN TAB PO SCH (10:40)
[2020-04-26] MEDS: ENOXAPARIN SOD 40 MG/0.4 ML SYRINGE SC SCH (10:40)
[2020-04-26] MEDS: ASCORBIC ACID 500 MG TAB PO SCH (10:45)
--- NOTE | 2020-04-26 11:29 | NUR ---
This RN spoke to Benita at [facility]; pt.'s covid test on 04/24 is okay and the pt. will be picked up today at 3:30 pm by Cyrus.
--- NOTE | 2020-04-26 12:39 | NUR ---
D/C Planning Placed call to [facility] with [facility] at 11:00 advising her patient is ready to discharge. Transportation has been arranged with [facility] via gurney and oxygen. Will informed bedside nurse.
[2020-04-26 13:00] VITALS: BP 142/92
[2020-04-26 14:19] VITALS: BP 142/92
--- NOTE | 2020-04-26 16:30 | NUR ---
Discharge instructions given as ordered. Encourage to follow up with PMD as instructed. All questions and concerns addressed. Patient verbalized understanding. Medication reconciliation form completed and copy given to patient. IV removed with catheter intact and pressure dressing applied. Telemetry unit returned to ICU. Patient taken to vehicle via wheelchair with all personal belongings accompanied by staff. No distress noted at time of departure.
== END 2020-04-26 16:30 | DRG 291 ==
LOC: EDBD 15:36 → ER 15:41 → OVERFLOW 15:42 → TELE-WESTW 04-21 21:40 → TELE-CENTR 04-22 21:37 → UNDODISIN 04-26 16:30
PROVIDERS: ADMIT Nurse Practitioner Family; ATTEND Family Medicine
PROC: 5A09357 Assistance with Respiratory Ventilation, Less than 24 Consecutive Hours, Continuous Positive Airway Pressure (ICD-10-PCS; principal; 2020-04-20)
DX: I13.0 Hypertensive heart and chronic kidney disease with heart failure and stage 1 through stage 4 chronic kidney disease, or unspecified chronic kidney disease (principal); J96.21 Acute and chronic respiratory failure with hypoxia; I50.43 Acute on chronic combined systolic (congestive) and diastolic (congestive) heart failure; J44.1 Chronic obstructive pulmonary disease with (acute) exacerbation; N17.9 Acute kidney failure, unspecified; I42.8 Other cardiomyopathies; N18.9 Chronic kidney disease, unspecified; I48.91 Unspecified atrial fibrillation; Z59.0 Homelessness; E78.5 Hyperlipidemia, unspecified; I25.2 Old myocardial infarction; I73.9 Peripheral vascular disease, unspecified; Z20.828 Contact with and (suspected) exposure to other viral communicable diseases; Z82.49 Family history of ischemic heart disease and other diseases of the circulatory system; Z82.5 Family history of asthma and other chronic lower respiratory diseases; Z81.8 Family history of other mental and behavioral disorders; Z87.891 Personal history of nicotine dependence; Z91.19 Patient's noncompliance with other medical treatment and regimen; Z95.0 Presence of cardiac pacemaker; Z95.5 Presence of coronary angioplasty implant and graft; Z95.820 Peripheral vascular angioplasty status with implants and grafts; F19.10 Other psychoactive substance abuse, uncomplicated
CPT/HCPCS: 36415; 36600; 71045; 80053; 81001; 82805; 83735; 83880; 84484; 85025; 85610; 85730; 87081; 87426; 94640; 96372; 96374; 96375; 96376; 99291; C9113; G0378; J0330; J3490